=== PATIENT | male | born 1950 | race Caucasian/White ===

== ENCOUNTER 2018-08-06 14:31 | Emergency (ER) | payer OTHER ==
--- OUTSIDE RECORDS SUMMARY | 2018-08-06 14:33 | XMS REPORT ---
:1950 Author Organization eClinicalWorks Care Team Providers Name Role Phone Hardik Teresa Provider Role Unavailable Allergies, Adverse Reactions, Alerts Substance Reaction Event Type N.K.D.A. Info Not Available Non Drug Allergy Problems Problem Type Condition Code Onset Dates Condition Status Problem Acute right hip pain M25.551 Active Problem Right sided sciatica M54.31 Active Assessment Acute right hip pain M25.551 Active Assessment Right sided sciatica M54.31 Active Medications Medication Code Code Instructions Start End Status Dosage System Date Date MetFORMIN HCl ER [facility] 84491953575 500 MG Oral Active TAKE 2 TABLETS BY MOUTH TWICE A DAY PredniSONE [facility] 89642279796 20 MG Oral Active TAKE 1 TABLET BY MOUTH EVERY DAY Aspir-81 [facility] 77259858235 81 MG Orally Active 1 tablet Once a day MethylPREDNISolone [facility] 36898180934 4 MG Orally Jan Active as directed 2017 Victoza [facility] 68262506502 18 MG/3ML Active INJECT UNDER Subcutaneous THE SKIN 1.8MG EVERY DAY Iihuympse-Aoijvhxm-W [facility] 90327444778 30-2-10 MG/5ML Active TAKE 2 M Oral TEASPOONSFUL BY MOUTH THREE TIMES A DAY NEEDED FOR 10 DAYS Fluzone High-Dose [facility] 98311958312 0.5 ML Active TO BE Intramuscular ADMINISTERED BY PHARMACIST FOR IMMUNIZATION NovoFine Plus [facility] 02074303399 32G X 4 MM Active USE ONCE DAILY Ketoconazole [facility] 67362646490 2 % External Active USE SHAMPOO 2-3X WEEKLY NEEDED, LEAVE LATHER IN PLACE FOR 5 MINUTES PRIOR TO RINSING. Betamethasone [facility] 29335943387 0.05 % Active APPLY TO Dipropionate External AFFECTED AREA TWICE A DAY NEEDED FOR UP TO ONE WEEK. TAKE ONE WEEK BREAK BETWEEN TREATME Montelukast Sodium ND 62531327159 10 MG Oral Active TAKE 1 TABLET BY MOUTH EVERY DAY Losartan Potassium ND 87334471712 100 MG Oral Active TAKE 1 TABLET BY MOUTH EVERY DAY (NEEDS BLOOD WORK AND OFFICE VISIT BEFORE NEXT REFILL) Atorvastatin Calcium [facility] 47717340260 10 MG Oral Active TAKE 1 TABLET BY MOUTH EVERY DAY (NEED BLOOD WORK AND OFFICE VISIT BEFORE NEXT REFILL) Neida [facility] 39932253106 0.01 % Active PUT 1 DROP Ophthalmic INTO BOTH EYES AT BEDTIME Results No Known Results Summary Purpose eClinicalWorks Submission
--- NOTE | 2018-08-06 15:19 | EDPHYS ---
Physician Documentation [facility] Name: Wesley Medina Age: 68 yrs Sex: Male : 1950 Arrival Date: 08/06/2018 Time: 14:33 Bed 11 Private MD: Seth Salomon ED Physician Ramiro Zamarripa HPI: 08/06 15:24 This 68 yrs old Male presents to ER via Ambulatory with complaints of Back snw Pain. 15:24 The patient presents with pain that is acute. The symptoms are located in the low back. snw Onset: The symptoms/episode began/occurred 1 week(s) ago, and became persistent. The pain radiates to the lateral aspect of right thigh, lateral aspect of right knee and right knee. Associated signs and symptoms: The patient has no apparent associated signs or symptoms. The problem was sustained when bending over, when lifting from twisting. Severity of symptoms: At their worst the symptoms were moderate. The patient has experienced a previous episode. The patient has been recently seen by a physician: the patient's primary care provider, with different complaint(s). Historical: - Allergies: 14:35 No Known Allergies; sg - PMHx: 14:35 Diabetes - NIDDM; Hypertension; sg - PSHx: 14:35 Cholecystectomy; Appendectomy; scalp sx; Tonsillectomy; sg - Immunization history:: Adult Immunizations up to date. - Social history:: Smoking status: Patient/guardian denies using tobacco. - Ebola Screening: : Patient negative for fever greater than or equal to 101.5 degrees Fahrenheit, and additional compatible Ebola Virus Disease symptoms Patient denies exposure to infectious person Patient denies travel to an Ebola-affected area in the 21 days before illness onset No symptoms or risks identified at this time. ROS: 15:23 Constitutional: Negative for fever, chills, and weight loss, Eyes: Negative for injury, snw pain, redness, and discharge, ENT: Negative for injury, pain, and discharge, Neck: Negative for injury, pain, and swelling, Cardiovascular: Negative for chest pain, palpitations, and edema, Respiratory: Negative for shortness of breath, cough, wheezing, and pleuritic chest pain, Abdomen/GI: Negative for abdominal pain, nausea, vomiting, diarrhea, and constipation, : Negative for injury, bleeding, discharge, and swelling, MS/Extremity: Negative for injury and deformity, Skin: Negative for injury, rash, and discoloration, Neuro: Negative for headache, weakness, numbness, tingling, and seizure. 15:23 Back: Positive for pain with movement, radiated pain, of the low back area, radiates down right hip to knee. Exam: 15:22 Constitutional: This is a well developed, well nourished patient who is awake, alert, snw and in no acute distress. Head/Face: Normocephalic, atraumatic. Eyes: Pupils equal round and reactive to light, extra-ocular motions intact. Lids and lashes normal. Conjunctiva and sclera are non-icteric and not injected. Cornea within normal limits. Periorbital areas with no swelling, redness, or edema. ENT: Nares patent. No nasal discharge, no septal abnormalities noted. Tympanic membranes are normal and external auditory canals are clear. Oropharynx with no redness, swelling, or masses, exudates, or evidence of obstruction, uvula midline. Mucous membranes moist. Neck: Trachea midline, no thyromegaly or masses palpated, and no cervical lymphadenopathy. Supple, full range of motion without nuchal rigidity, or vertebral point tenderness. No Meningismus. Chest/axilla: Normal chest wall appearance and motion. Nontender with no deformity. No lesions are appreciated. Cardiovascular: Regular rate and rhythm with a normal S1 and S2. No gallops, murmurs, or rubs. Normal PMI, no JVD. No pulse deficits. Respiratory: Lungs have equal breath sounds bilaterally, clear to auscultation and percussion. No rales, rhonchi or wheezes noted. No increased work of breathing, no retractions or nasal flaring. Abdomen/GI: Soft, non-tender, with normal bowel sounds. No distension or tympany. No guarding or rebound. No evidence of tenderness throughout. Back: No spinal tenderness. No costovertebral tenderness. Painful flexion, rotation on range of motion. Skin: Warm, dry with normal turgor. Normal color with no rashes, no lesions, and no evidence of cellulitis. MS/ Extremity: Pulses equal, no cyanosis. Neurovascular intact. Full, normal range of motion. Neuro: Awake and alert, GCS 15, oriented to person, place, time, and situation. Cranial nerves II-XII grossly intact. Motor strength 5/5 in all extremities. Sensory grossly intact. Cerebellar exam normal. Normal gait. Vital Signs: 14:39 Weight 120.66 kg; Height 6 ft. 1 in. (185.42 cm); Pain 7/10; sg 14:40 BP 134 / 74; Pulse 85; Resp 17; Temp 98.1; Pulse Ox 98% ; sg 14:39 Body Mass Index 35.09 (120.66 kg, 185.42 cm) sg MDM: 15:06 Patient medically screened. snw 15:22 Data reviewed: vital signs, nurses notes. Data interpreted: Pulse oximetry: on room air snw is 98 %. Interpretation: normal. Counseling: I had a detailed discussion with the patient and/or guardian regarding: the historical points, exam findings, and any diagnostic results supporting the discharge/admit diagnosis, the need for outpatient follow up, for definitive care, to return to the emergency department if symptoms worsen or persist or if there are any questions or concerns that arise at home. Special discussion: I have referred the patient to see his PCP for further evaluation of high blood pressure. Based on the history and exam findings, there is no indication for further emergent testing or inpatient evaluation. I discussed with the patient/guardian the need to see the primary care provider for further evaluation of the symptoms. Administered Medications: 15:28 Drug: fentaNYL (PF) 50 mcg Route: IM; Site: right deltoid; hb 15:28 Drug: predniSONE 20 mg Route: PO; hb 15:28 Drug: Valium 2 mg Route: PO; hb Disposition: 08/07 07:50 Co-signature as Attending Physician, Ramiro Zamarripa MD I agree with the assessment and oscar plan of care. Disposition: 08/06/18 15:19 Discharged to Home. Impression: Low back pain, Muscle spasm of back. - Condition is Stable. - Discharge Instructions: Back Pain, Adult, Muscle Cramps and Spasms, Musculoskeletal Pain, Cryotherapy, Rehydration, Adult, Heat Therapy. - Prescriptions for Tylenol- Codeine #3 300-30 mg Oral Tablet - take 2 tablets by ORAL route every 6 hours As needed; 16 tablet. Prednisone 20 mg Oral Tablet - take 1 tablet by ORAL route every 12 hours for 5 days; 10 tablet. orphenadrine citrate 100 mg Oral Tablet Sustained Release - take 1 tablet by ORAL route 2 times per day As needed; 20 tablet. - Work release form, Medication Reconciliation Form, Thank You Letter, Antibiotic Education, Prescription Opioid Use form. - Follow up: Seth Salomon MD; When: 2 - 3 days; Reason: Recheck today's complaints, Continuance of care, Re-evaluation by your physician. Follow up: Emergency Department; When: As needed; Reason: Worsening of condition. Signatures: Bear Mccarthy RN Ramiro Nance MD MD cha Therrien, Shelly, DIRECTOR OF ENVIRONMENTAL SERVICES-C DIRECTOR OF ENVIRONMENTAL SERVICES-Csnw [place] Colmenares RN RN la1 Rozina Diaz RN RN Corrections: (The following items were deleted from the chart) 08/06 15:58 15:19 08/06/2018 15:19 Discharged to Home. Impression: Low back pain; Muscle spasm of la1 back. Condition is Stable. Forms are Medication Reconciliation Form, Thank You Letter, Antibiotic Education, Prescription Opioid Use. Follow up: Seth Salomon; When: 2 - 3 days; Reason: Recheck today's complaints, Continuance of care, Re-evaluation by your physician. Follow up: Emergency Department; When: As needed; Reason: Worsening of condition. snw
--- NOTE | 2018-08-06 15:19 | ER ---
Nurse's Notes [facility] Name: Wesley Medina Age: 68 yrs Sex: Male : 1950 Arrival Date: 08/06/2018 Time: 14:33 Bed 11 Private MD: Seth Salomon Diagnosis: Low back pain;Muscle spasm of back Presentation: 08/06 14:41 Presenting complaint: Patient states: Injury to back while trying to start the pressure sg washer, bed rest and light duty for several days, back pain got better, and then went to lean forward to get something and pulled back, reports low back pain and leg pain at this time, denies trauma or injury. Transition of care: patient was not received from another setting of care. Onset of symptoms was August 06, 2018. Risk Assessment: Do you want to hurt yourself or someone else? Patient reports no desire to harm self or others. Initial Sepsis Screen: Does the patient meet any 2 criteria? No. Patient's initial sepsis screen is negative. Does the patient have a suspected source of infection? No. Patient's initial sepsis screen is negative. Care prior to arrival: None. 14:41 Method Of Arrival: Ambulatory sg 14:41 Acuity: MILLA 4 sg Historical: - Allergies: 14:35 No Known Allergies; sg - PMHx: 14:35 Diabetes - NIDDM; Hypertension; sg - PSHx: 14:35 Cholecystectomy; Appendectomy; scalp sx; Tonsillectomy; sg - Immunization history:: Adult Immunizations up to date. - Social history:: Smoking status: Patient/guardian denies using tobacco. - Ebola Screening: : Patient negative for fever greater than or equal to 101.5 degrees Fahrenheit, and additional compatible Ebola Virus Disease symptoms Patient denies exposure to infectious person Patient denies travel to an Ebola-affected area in the 21 days before illness onset No symptoms or risks identified at this time. Screenin:28 Abuse screen: Denies threats or abuse. Denies injuries from another. Nutritional hb screening: No deficits noted. Tuberculosis screening: No symptoms or risk factors identified. Fall Risk None identified. Assessment: 15:28 General: Appears in no apparent distress. Behavior is calm, cooperative. Pain: Pain hb currently is 7 out of 10 on a pain scale. Neuro: Level of Consciousness is awake, alert, obeys commands, Oriented to person, place, time, situation. Cardiovascular: Capillary refill < 3 seconds Patient's skin is warm and dry. Respiratory: Airway is patent Respiratory effort is even, unlabored, Respiratory pattern is regular, symmetrical. GI: No signs and/or symptoms were reported involving the gastrointestinal system. : No signs and/or symptoms were reported regarding the genitourinary system. EENT: No signs and/or symptoms were reported regarding the EENT system. Derm: Skin is intact, is healthy with good turgor. Musculoskeletal: Reports low back pain. Vital Signs: 14:39 Weight 120.66 kg; Height 6 ft. 1 in. (185.42 cm); Pain 7/10; sg 14:40 BP 134 / 74; Pulse 85; Resp 17; Temp 98.1; Pulse Ox 98% ; sg 14:39 Body Mass Index 35.09 (120.66 kg, 185.42 cm) sg ED Course: 14:33 Patient arrived in ED. ds1 14:33 Seth Salomon MD is Private Physician. ds1 14:35 Arm band placed on. sg 14:43 Triage completed. sg 15:06 Lu Carbone FNP-C [facility]. snw 15:06 Ramiro Zamarripa MD is Attending Physician. snw 15:15 Patient has correct armband on for positive identification. Call light in reach. hb 15:18 Seth Salomon MD is Referral Physician. snw 15:27 Dallas Colmenares RN is Primary Nurse. la1 15:29 No provider procedures requiring assistance completed. Patient did not have IV access hb during this emergency room visit. Administered Medications: 15:28 Drug: fentaNYL (PF) 50 mcg Route: IM; Site: right deltoid; hb 15:28 Drug: predniSONE 20 mg Route: PO; hb 15:28 Drug: Valium 2 mg Route: PO; hb Outcome: 15:19 Discharge ordered by . snw 15:58 Patient left the ED. la1 Signatures: Bear Mccarthy RN RN Lu Carbone FNP-C BUS DISPATCHER INTERSTATE-Csnw OmalleyMeli burgess ds1 Dallas Colmenares RN RN la1 Rozina Diaz RN RN hb
[2018-08-06] MEDS ORDERED: DIAZEPAM 2 MG TABLET ONE (15:34)
[2018-08-06] MEDS ORDERED: predniSONE 20 MG TAB ONE (15:34)
[2018-08-06] MEDS ORDERED: FENTANYL CITR 100 MCG/2 ML ONE (15:34)
[2018-08-06 16:12] VITALS: BP 134/74; TEMP 98.1; O2SAT 98
== END 2018-08-06 15:58 | disposition home or self-care (01) ==
LOC: ER 14:31
DX: M62.830 Muscle spasm of back (principal); E11.9 Type 2 diabetes mellitus without complications; I10 Essential (primary) hypertension
CPT/HCPCS: 96372; 99282; J3010; J7512

== ENCOUNTER 2019-07-06 21:40 | Inpatient (IN) | payer OTHER ==
--- OUTSIDE RECORDS SUMMARY | 2019-07-06 21:43 | XMS REPORT ---
[...] Dosage System Date Date MetFORMIN HCl ER [facility] 86207402983 500 MG Oral Active TAKE 2 TABLETS BY MOUTH TWICE A DAY PredniSONE [facility] 10931212220 20 MG Oral Active TAKE 1 TABLET BY MOUTH EVERY DAY Aspir-81 [facility] 93872301559 81 MG Orally Active 1 tablet Once a day MethylPREDNISolone [facility] 28643969107 4 MG Orally Jan Active as directed 2017 Victoza [facility] [place] 18767398508 18 MG/3ML Active INJECT UNDER Subcutaneous THE SKIN 1.8MG EVERY DAY Mmtpicwuz-Snmfjvlk-D [facility] 33745044642 30-2-10 MG/5ML Active TAKE 2 M Oral TEASPOONSFUL BY MOUTH THREE TIMES A DAY NEEDED FOR 10 DAYS Fluzone High-Dose [facility] [place] 96547118396 0.5 ML Active TO BE Intramuscular ADMINISTERED BY PHARMACIST FOR IMMUNIZATION NovoFine Plus [facility] 37542051599 32G X 4 MM Active USE ONCE DAILY Ketoconazole [facility] [place] 64035036248 2 % External Active USE SHAMPOO 2-3X WEEKLY NEEDED, LEAVE LATHER IN PLACE FOR 5 MINUTES PRIOR TO RINSING. Betamethasone [facility] 23199415708 0.05 % Active APPLY TO Dipropionate External AFFECTED AREA TWICE A DAY NEEDED FOR UP TO ONE WEEK. TAKE ONE WEEK BREAK BETWEEN TREATME Montelukast Sodium ND 86021195608 10 MG Oral Active TAKE 1 TABLET BY MOUTH EVERY DAY Losartan Potassium ND 75769896801 100 MG Oral Active TAKE 1 TABLET BY MOUTH EVERY DAY (NEEDS BLOOD WORK AND OFFICE VISIT BEFORE NEXT REFILL) Atorvastatin Calcium [facility] 64673114162 10 MG Oral Active TAKE 1 TABLET BY MOUTH EVERY DAY (NEED BLOOD WORK AND OFFICE VISIT BEFORE NEXT REFILL) Neida [facility] 77431504356 0.01 % Active PUT 1 DROP Ophthalmic INTO BOTH EYES AT BEDTIME Results No Known Results Summary Purpose eClinicalWorks Submission
[2019-07-06 22:45] LABS: Absolute Lymphocytes (CBC) 1.6 K/uL (0.7-4.9); Basophils % 0.4 % (0-1.3); Hematocrit 50.5 % (39.6-49.0); Lymphocytes % 7.8 % (15.3-44.8); MPV 8.8 fL (7.6-11.3); RBC Red Blood Cell Count 5.65 M/uL (4.33-5.43)
[2019-07-06] MEDS ORDERED: NA CHLORIDE 0.9% 1,000 ML ONE (22:46)
[2019-07-06 22:49] LABS: Protime INR 1.08
[2019-07-06 22:59] LABS: ALT/SGPT 47 U/L (12-78); AST/SGOT 23 U/L (15-37); Albumin 3.9 g/dL (3.4-5.0); Alkaline Phosphatase 72 U/L (45-117); Amylase Level 48 U/L (25-115); BUN Blood Urea Nitrogen 14 mg/dL (7-18); Bicarbonate 24 mmol/L (21-32); Bilirubin Direct 0.1 mg/dL (0-0.2); Bilirubin Total 0.6 mg/dL (0.2-1.0); CKMB Creatine Kinase MB < 1.0 ng/mL (0.3-3.6); Creatine Phosphokinase 73 U/L (39-308); Glucose Level 140 mg/dL (74-106); Lipase 131 U/L (73-393); Potassium 3.7 mmol/L (3.5-5.1); Protein, Total 7.7 g/dL (6.4-8.2); Sodium Level 138 mmol/L (136-145); Troponin (Emerg Dept Use Only) < 0.02 ng/mL (0.0-0.045)
[2019-07-06 23:17] LABS: Blood Morphology Comment NOT SEEN (NOT SEEN); Platelet Estimate ADEQ
[2019-07-06] MEDS ORDERED: IBUPROFEN 400 MG TAB ONE (23:35)
[2019-07-06] MEDS ORDERED: PIPER/TAZO/NS 3.375gm 3.375 GM/100 ML BAG ONE (23:35)
[2019-07-06 23:55] LABS: Urine Bacteria <20 /HPF (NONE SEEN); Urine Culture Reflex Order NOT NEEDED; Urine Mucus 1+ /HPF (NONE SEEN)
[2019-07-07 00:43] LABS: Urine Blood 2+ (NEG); Urine Glucose 3+ (NEG); Urine Protein NEGATIVE (NEG); Urine Specific Gravity 1.015 (1.005-1.030)
--- NOTE | 2019-07-07 01:40 | EDPHYS ---
Physician Documentation [facility] Name: Wesley Medina Age: 69 yrs Sex: Male : 1950 Arrival Date: 07/06/2019 Time: 21:42 Bed 8 Private MD: ED Physician Ramiro Zamarripa HPI: 07/06 23:19 This 69 yrs old Male presents to ER via Ambulatory with complaints of Flu snw Symptoms. 23:19 Onset: The symptoms/episode began/occurred suddenly, today. Associated signs and snw symptoms: Pertinent positives: dysuria, fever, sore throat, chills. Modifying factors: The patient symptoms are alleviated by nothing. The patient has not experienced similar symptoms in the past. It is unknown whether or not the patient has recently seen a physician, PCP is Dr. Salomon. Historical: - Allergies: 22:27 No Known Allergies; lp1 - Home Meds: 22:27 losartan 100 mg oral tab 1 tab once daily [Active]; metformin 1,000 mg Oral TG24 2 tabs lp1 once daily [Active]; atorvastatin 10 mg oral tab 1 tab once daily [Active]; Victoza 3-Jose 0.6 mg/0.1 mL (18 mg/3 mL) subcutaneous pnij [Active]; novofine [Active]; Lumigan 0.01 % ophthalmic drop daily [Active]; Jardiance 10 mg oral tab 1 tab once daily [Active]; aspirin 81 mg oral TbEC 1 tab once daily [Active]; - PMHx: 22:27 Diabetes - NIDDM; Hypertension; Hyperlipidemia; lp1 - PSHx: 22:27 Tonsillectomy; Cholecystectomy; R meniscus repair; Appendectomy; lp1 - Immunization history:: Adult Immunizations up to date. - Coronavirus screen:: The patient has NOT traveled to [place], [place], or [place] in the past 14 days. - Social history:: Smoking status: Patient denies any tobacco usage or history of. - Ebola Screening: : No symptoms or risks identified at this time. ROS: 23:18 Eyes: Negative for injury, pain, redness, and discharge. snw 23:18 Neck: Negative for injury, pain, and swelling, Cardiovascular: Negative for chest pain, palpitations, and edema, Respiratory: Negative for shortness of breath, cough, wheezing, and pleuritic chest pain, Abdomen/GI: Negative for abdominal pain, nausea, vomiting, diarrhea, and constipation, Back: Negative for injury and pain. 23:18 MS/Extremity: Negative for injury and deformity, Skin: Negative for injury, rash, and discoloration, Neuro: Negative for headache, weakness, numbness, tingling, and seizure, Psych: Negative for depression, anxiety, suicide ideation, homicidal ideation, and hallucinations. 23:18 Constitutional: Positive for body aches, chills, fatigue, fever, malaise. 23:18 ENT: Positive for sore throat. 23:18 : Positive for urinary frequency, burning with urination. Exam: 23:17 Head/Face: Normocephalic, atraumatic. Eyes: Pupils equal round and reactive to light, snw extra-ocular motions intact. Lids and lashes normal. Conjunctiva and sclera are non-icteric and not injected. Cornea within normal limits. Periorbital areas with no swelling, redness, or edema. Neck: Trachea midline, no thyromegaly or masses palpated, and no cervical lymphadenopathy. Supple, full range of motion without nuchal rigidity, or vertebral point tenderness. No Meningismus. Chest/axilla: Normal chest wall appearance and motion. Nontender with no deformity. No lesions are appreciated. 23:17 Respiratory: Lungs have equal breath sounds bilaterally, clear to auscultation and percussion. No rales, rhonchi or wheezes noted. No increased work of breathing, no retractions or nasal flaring. Abdomen/GI: Soft, non-tender, with normal bowel sounds. No distension or tympany. No guarding or rebound. No evidence of tenderness throughout. Back: No spinal tenderness. No costovertebral tenderness. Full range of motion. Skin: Warm, dry with normal turgor. Normal color with no rashes, no lesions, and no evidence of cellulitis. MS/ Extremity: Pulses equal, no cyanosis. Neurovascular intact. Full, normal range of motion. Neuro: Awake and alert, GCS 15, oriented to person, place, time, and situation. Cranial nerves II-XII grossly intact. Motor strength 5/5 in all extremities. Sensory grossly intact. Cerebellar exam normal. Normal gait. Psych: Awake, alert, with orientation to person, place and time. Behavior, mood, and affect are within normal limits. 23:17 Constitutional: The patient appears alert, awake, febrile. 23:17 ENT: TM's: are normal, Nose: is normal, Mouth: is normal, Posterior pharynx: erythema, that is moderate, Voice: is normal. 23:17 Cardiovascular: Rate: tachycardic, Rhythm: regular, Pulses: no pulse deficits are appreciated, Heart sounds: normal. Vital Signs: 22:08 BP 161 / 69; Pulse 127; Resp 20; Temp 102.1(O); Pulse Ox 93% on R/A; Weight 115.67 kg; lp1 Height 6 ft. 1 in. (185.42 cm); 23:46 BP 117 / 70; Pulse 117; Resp 25 S; Temp 99.8(O); Pulse Ox 95% on R/A; ar5 07/07 00:00 BP 135 / 70; Pulse 112; Resp 25; Temp 99.8(O); Pulse Ox 94% on 2 lpm NC; Pain 0/10; vc 01:00 BP 131 / 69; Pulse 116; Resp 23; Pulse Ox 93% on 2 lpm NC; vc 02:00 BP 120 / 70; Pulse 109; Resp 22; Pulse Ox 92% on R/A; vc 03:00 BP 120 / 62; Pulse 103; Resp 30; Pulse Ox 94% on 2 lpm NC; vc 04:00 BP 125 / ???; Pulse 95; Resp 22; Temp 98.4(O); Pulse Ox 96% on 2 lpm NC; vc 07/06 22:08 Body Mass Index 33.64 (115.67 kg, 185.42 cm) lp1 MDM: 07/06 22:22 Patient medically screened. oscar 07/07 01:39 Data reviewed: vital signs, nurses notes. Data interpreted: Pulse oximetry: on room air snw is 95 %. Interpretation: acceptable. Counseling: I had a detailed discussion with the patient and/or guardian regarding: the historical points, exam findings, and any diagnostic results supporting the discharge/admit diagnosis, lab results, radiology results, the need for further work-up and treatment in the hospital. Physician consultation: Margaret Barahona MD was called at 00:40, was contacted at 00:40, regarding admission, to the telemetry unit. would like further tests performed, CT scan. 07/06 22:08 Order name: Amylase, Serum 07/06 22:08 Order name: Basic Metabolic Panel [facility] 07/06 22:08 Order name: Blood Culture Adult (2) [facility] 07/06 22:08 Order name: CBC with Diff; Complete Time: 23:20 [facility] 07/06 22:08 Order name: Ckmb; Complete Time: 23:04 [facility] 07/06 22:08 Order name: CPK; Complete Time: 23:04 [facility] 07/06 22:08 Order name: Lactate; Complete Time: 23:04 [facility] 07/06 22:08 Order name: LFT's; Complete Time: 23:04 [facility] 07/06 22:08 Order name: Lipase; Complete Time: 23:04 [facility] 07/06 22:08 Order name: Procalcitonin; Complete Time: 23:14 [facility] 07/06 22:08 Order name: Protime (+inr); Complete Time: 22:51 [facility] 07/06 22:08 Order name: Ptt, Activated; Complete Time: 22:51 [facility] 07/06 22:08 Order name: Troponin (emerg Dept Use Only); Complete Time: 23:04 [facility] 07/06 22:08 Order name: Urine Microscopic Only; Complete Time: 23:58 [facility] 07/06 22:08 Order name: Chest Single View XRAY; Complete Time: 15:22 [facility] 07/06 22:08 Order name: Amylase Level; Complete Time: 23:04 [facility] 07/06 22:08 Order name: Basic Metabolic Panel; Complete Time: 23:04 [facility] 07/06 22:08 Order name: Blood Culture [facility] 07/06 22:09 Order name: Flu; Complete Time: 22:43 [facility] 07/06 23:05 Order name: Strep; Complete Time: 23:33 [facility] 07/[facility] 23:17 Order name[facility] Urine [facility] 07/[facility] 23:18 Order name: Manual Differential; Complete Time: 23:20 [facility] 07/06 23:34 Order name: Throat Culture [facility] 07/07 00:27 Order name: Urine Dipstick--Ancillary (enter results); Complete Time: 00:45 sp 07/07 00:35 Order name: CT Stone Protocol [facility] 07/07 01:52 Order name: Add On-Lab [facility] 07/07 02:37 Order name: Lactate Sepsis 2 HR Follow-up; Complete Time: 15:22 EDMS 07/07 02:44 Order name: [place] Screen; Complete Time: 15:22 EDMS 07/06 22:08 Order name: Cardiac monitoring; Complete Time: 22:49 lp1 07/06 22:08 Order name: EKG - Nurse/Tech; Complete Time: 23:08 lp1 07/06 22:08 Order name: IV Saline Lock - Large Bore; Complete Time: 22:33 lp1 07/06 22:08 Order name: Labs collected and sent; Complete Time: 22:33 lp1 07/06 22:08 Order name: O2 Per Protocol; Complete Time: 22:33 lp1 07/06 22:08 Order name: O2 Sat Monitoring; Complete Time: 22:33 lp1 07/06 22:08 Order name: Urine Dipstick-Ancillary (obtain specimen); Complete Time: 23:28 lp1 Administered Medications: 07/06 22:50 Drug: NS 0.9% 1000 ml Route: IV; Rate: 1 bolus; Site: right forearm; vc 23:50 Follow up: IV Status: Completed infusion vc 23:51 Drug: Zosyn 3.375 grams Route: IVPB; Infused Over: 60 mins; Site: right forearm; vc 07/07 00:51 Follow up: IV Status: Completed infusion vc 07/06 23:51 Drug: Motrin 400 mg Route: PO; vc 07/07 00:00 Follow up: Response: No adverse reaction; Temperature is decreased vc 02:00 Drug: NS 0.9% 1000 ml Route: IV; Rate: 1 bolus; Site: left forearm; vc 02:16 Follow up: Response: No adverse reaction; IV Status: Infusion continued upon admission vc Disposition: 07/07/19 01:39 Hospitalization ordered by Margaret Barahona for Inpatient Admission. Preliminary diagnosis is Sepsis, unspecified organism. - Bed requested for Telemetry/MedSurg (Inpatient). - Status is Inpatient Admission. vc - Condition is Stable. - Problem is new. - Symptoms are unchanged. UTI on Admission? No Addendum: 07/08/2019 21:08 Co-signature as Attending Physician, Ramiro Zamarripa MD I agree with the assessment and c erwin plan of care. Signatures: Dispatcher [employer] Ramiro Patrick MD MD cha Therrien, Shelly, BIZTALK DEVELOPER-C BIZTALK DEVELOPER-Csnw Essence Valle, RN RN 1 Sera Saravia, WILLIE RN Georgiana Gaines RN RN vc Corrections: (The following items were deleted from the chart) 07/07 00:10 07/06 22:08 Accucheck ordered. lp1 vc 07/07 01:53 01:39 Hospitalization Ordered by Margaret Barahona MD for Inpatient Admission. Preliminary cg diagnosis is Sepsis, unspecified organism. Bed requested for Telemetry/MedSurg (Inpatient). Status is Inpatient Admission. Condition is Stable. Problem is new. Symptoms are unchanged. UTI on Admission? No. snw 04:35 01:53 07/07/2019 01:39 Hospitalization Ordered by Margaret Barahona MD for Inpatient vc Admission. Preliminary diagnosis is Sepsis, unspecified organism. Bed requested for Telemetry/MedSurg (Inpatient). Status is Inpatient Admission. Condition is Stable. Problem is new. Symptoms are unchanged. UTI on Admission? No. cg
--- NOTE | 2019-07-07 01:40 | ER ---
Nurse's Notes [facility] Name: Wesley Medina Age: 69 yrs Sex: Male : 1950 Arrival Date: 07/06/2019 Time: 21:42 Bed 8 Private MD: Diagnosis: Sepsis, unspecified organism Presentation: 07/06 22:10 Presenting complaint: Patient states: States all of a sudden this evening began to have lp1 chills, checked temp at 1800, temp of 101; States did not take any meds for fever, "I didn't want to mask any symptoms"; States shortness of breath. Transition of care: patient was not received from another setting of care. Onset of symptoms was July 06, 2019. Risk Assessment: Do you want to hurt yourself or someone else? Patient reports no desire to harm self or others. Initial Sepsis Screen: Does the patient meet any 2 criteria? Temp <36.0*C (96.8*F)) or > 38.3*C (100.9*F). HR > 90 bpm. Yes Does the patient have a suspected source of infection? Yes: Productive cough/pneumonia. Care prior to arrival: None. 22:10 Method Of Arrival: Ambulatory lp1 22:10 Acuity: MILLA 2 lp1 Historical: - Allergies: 22:27 No Known Allergies; lp1 - Home Meds: 22:27 losartan 100 mg oral tab 1 tab once daily [Active]; metformin 1,000 mg Oral TG24 2 tabs lp1 once daily [Active]; atorvastatin 10 mg oral tab 1 tab once daily [Active]; Victoza 3-Jose 0.6 mg/0.1 mL (18 mg/3 mL) subcutaneous pnij [Active]; novofine [Active]; Lumigan 0.01 % ophthalmic drop daily [Active]; Jardiance 10 mg oral tab 1 tab once daily [Active]; aspirin 81 mg oral TbEC 1 tab once daily [Active]; - PMHx: 22:27 Diabetes - NIDDM; Hypertension; Hyperlipidemia; lp1 - PSHx: 22:27 Tonsillectomy; Cholecystectomy; R meniscus repair; Appendectomy; lp1 - Immunization history:: Adult Immunizations up to date. - Coronavirus screen:: The patient has NOT traveled to [place], [place], or [place] in the past 14 days. - Social history:: Smoking status: Patient denies any tobacco usage or history of. - Ebola Screening: : No symptoms or risks identified at this time. Screenin:27 Abuse screen: Denies threats or abuse. Denies injuries from another. Nutritional lp1 screening: No deficits noted. Tuberculosis screening: No symptoms or risk factors identified. Fall Risk None identified. Assessment: 22:28 General: Appears ill, Behavior is appropriate for age, Reports chills for fever for lp1 feeling ill for 0-12 hours. Pain: Denies pain. Neuro: Level of Consciousness is awake, alert, obeys commands, Oriented to person, place, time, situation, Gait is steady, Speech is normal. Cardiovascular: Capillary refill < 3 seconds in bilateral fingers Patient's skin is warm and dry. Respiratory: Reports shortness of breath Airway is patent Respiratory effort is even, unlabored, Breath sounds are clear bilaterally. GI: Abdomen is non-distended. : No signs and/or symptoms were reported regarding the genitourinary system. EENT: Reports pain when swallowing. Derm: Skin is intact, Skin is dry, Skin is flushed. Musculoskeletal: No deficits noted. 23:30 Reassessment: Patient is alert, oriented x 3, equal unlabored respirations, skin vc warm/dry/pink. Patient states feeling better. Patient states symptoms have improved. 07/07 00:30 General: Appears in no apparent distress. comfortable, Behavior is calm, cooperative. vc 00:30 Reassessment: Patient and/or family updated on plan of care and expected duration. Pain vc level reassessed. 01:30 Reassessment: Patient is resting with eyes closed. at bedside. Patient states vc feeling better. Patient states symptoms have improved. 02:18 Reassessment: Attempted to call report to forth floor, will try again. vc 03:00 Reassessment: Patient laying on left side with eyes closed, resting comfortably. vc at bedside. 03:50 Reassessment: Patient and/or family updated on plan of care and expected duration. Pain vc level reassessed. Patient ambulating to bathroom. Patient denies pain at this time. 04:07 Reassessment: Report given to WILLIE Rodriguez. vc Vital Signs: 07/06 22:08 BP 161 / 69; Pulse 127; Resp 20; Temp 102.1(O); Pulse Ox 93% on R/A; Weight 115.67 kg; lp1 Height 6 ft. 1 in. (185.42 cm); 23:46 BP 117 / 70; Pulse 117; Resp 25 S; Temp 99.8(O); Pulse Ox 95% on R/A; ar5 07/07 00:00 BP 135 / 70; Pulse 112; Resp 25; Temp 99.8(O); Pulse Ox 94% on 2 lpm NC; Pain 0/10; vc 01:00 BP 131 / 69; Pulse 116; Resp 23; Pulse Ox 93% on 2 lpm NC; vc 02:00 BP 120 / 70; Pulse 109; Resp 22; Pulse Ox 92% on R/A; vc 03:00 BP 120 / 62; Pulse 103; Resp 30; Pulse Ox 94% on 2 lpm NC; vc 04:00 BP 125 / ???; Pulse 95; Resp 22; Temp 98.4(O); Pulse Ox 96% on 2 lpm NC; vc 07/06 22:08 Body Mass Index 33.64 (115.67 kg, 185.42 cm) lp1 ED Course: 07/06 21:42 Patient arrived in ED. jg7 22:09 Georgiana Gaines, RN is Primary Nurse. vc 22:11 Triage completed. lp1 22:12 Arm band placed on. lp1 22:14 [facility]C [facility] snw 22:16 Ramiro Zamarripa MD is Attending Physician. snw 22:25 Inserted saline lock: 20 gauge in right forearm, using aseptic technique. Blood vc collected. 22:30 Patient has correct armband on for positive identification. vc 22:32 Flu Sent. vc 22:32 Blood Culture Sent. vc 22:32 Basic Metabolic Panel Sent. vc 22:32 Amylase Level Sent. vc 22:46 Chest Single View XRAY In Process Unspecified. EDMS 07/07 01:25 CT Stone Protocol In Process Unspecified. EDMS 01:39 Margaret Barahona MD is Hospitalizing Provider. snw 03:59 No provider procedures requiring assistance completed. vc 04:00 Patient admitted, IV remains in place. vc Administered Medications: 07/06 22:50 Drug: NS 0.9% 1000 ml Route: IV; Rate: 1 bolus; Site: right forearm; vc 23:50 Follow up: IV Status: Completed infusion vc 23:51 Drug: Zosyn 3.375 grams Route: IVPB; Infused Over: 60 mins; Site: right forearm; vc 07/07 00:51 Follow up: IV Status: Completed infusion vc 07/06 23:51 Drug: Motrin 400 mg Route: PO; vc 07/07 00:00 Follow up: Response: No adverse reaction; Temperature is decreased vc 02:00 Drug: NS 0.9% 1000 ml Route: IV; Rate: 1 bolus; Site: left forearm; vc 02:16 Follow up: Response: No adverse reaction; IV Status: Infusion continued upon admission vc Outcome: 01:39 Decision to Hospitalize by Provider. snw 03:59 Condition: good vc 03:59 Instructed on the need for admit. 04:08 Admitted to Tele accompanied by nurse, family with patient, room 425. vc 04:25 Patient left the ED. vc Signatures: Dispatcher [employer] EDMS Lu Carbone, CAR SHAGGER-C CAR SHAGGER-Csnw Essence Valle, RN RN lp1 Be Chambers RN RN jDarleen Pisano ar5 Lilliana Garg7 Georgiana Gaines RN RN vc Corrections: (The following items were deleted from the chart) 00:22 07/06 23:46 BP 117 / 70; Pulse 117bpm; Resp 25bpm; Spontaneous; Pulse Ox 95% RA; valeria ar5 07/07 02:45 02:44 IV Status: Completed infusion vc vc 04:37 04:35 Patient left the ED. vc vc
[2019-07-07] MEDS ORDERED: NA CHLORIDE 0.9% 1,000 ML ONE (01:55)
[2019-07-07] MEDS ORDERED: SODIUM CHL 0.9% 1000 ML BAG IV ONE (04:30)
[2019-07-07] MEDS ORDERED: ONDANSETRON 4 MG/2 ML VIAL IV PRN (04:30)
[2019-07-07] MEDS ORDERED: NA CHLORIDE 0.9% 500 ML IV ONE (04:30)
[2019-07-07] MEDS ORDERED: ALBUTEROL 2.5 MG/3 ML NEB SOL NEB PRN (04:30)
[2019-07-07] MEDS ORDERED: VANCOMYCIN/NS 1 gm 1 GM/250 ML BAG IVPB ONE (04:45)
--- NOTE | 2019-07-07 04:52 | P.HP ---
Certification for Inpatient Patient admitted to: Inpatient With expected LOS: >2 Midnights Practitioner: I am a practitioner with admitting privileges, knowledge of patient current condition, hospital course, and medical plan of care. Services: Services provided to patient in accordance with Admission requirements found in Title 42 Section 412.3 of the Code of Federal Regulations Patient History Date of Service: 07/07/19 Reason for admission: fever and chills History of Present Illness: madhavi francisco is a a69yoM w/ pmhx of DM, HTN, obesity who presents to the ER w / 24hrs of chills and nausea and 1 episode of dysuria. he reports that when awoke he did not feel well. he was seen in [facility] ED 2/2 chills and was noted to have fever, hypoxia and tachycardia. he reports that during removal of gallbladder and appendix that he developed significant abdominal infections post -operative. he denied sob, sob, syncope, swelling, palpitation, sick contacts, travels, abdominal or back pain, cough, rashes, sores, decrease vision, sores. he denies previous episodes. he is evaluated in the ED while laying on the gurney. it is noted that his o2 sat is 94% on 2L NC w/ noted mild dyspnea while conversing. the etiology of s/s are elusive but patient is undergoing work up to determine cause and possible treatment. he denies tobacco,etoh and drugs. Allergies No Known Allergies Allergy (Unverified 04/04/12 22:24) Home Medications: Ascorbic Acid [Vitamin C] 500 mg PO DAILY 04/05/12 Azilsartan Medoxomil [Edarbi] 40 mg PO DAILY 04/05/12 Calcium Carb/Vit D3/Minerals [Caltrate-600 with Vit D Tab] 1,200 mg PO DAILY 05/06 Cholestyramine/Sucrose [Questran Packet] 4 gm PO DAILYPRN PRN 04/05/12 Docosahexanoic AC/Epa [Fish Oil 1,000 MG*] 4,000 mg PO DAILY 04/05/12 Fexofenadine HCl [Dawn] 1 tab PO DAILYPRN PRN 04/05/12 Multivitamin [Multi-Vitamin Daily] 1 tab PO DAILY 04/05/12 Niacin 2,000 mg PO DAILY 04/05/12 Pioglitazone HCl [Actos] 30 mg PO DAILY 04/05/12 Saxagliptin HCl/Metformin HCl [Kombiglyze Xr 2.5-1,000 mg Tab] 2 tab PO DAILY Triamcinolone Acetonide [Nasacort Aq] 2 sprays KRIS DAILYPRN PRN 04/05/12 Zinc [Zinc Chelated] 50 mg PO DAILY 04/05/12 Aspirin [Aspir-Low] 81 mg PO DAILY 07/07/19 Atorvastatin Calcium [Lipitor] 10 mg PO BEDTIME 07/07/19 Bimatoprost [Lumigan] 1 drop OP BEDTIME 07/07/19 Empagliflozin [Jardiance] 10 mg PO DAILY 07/07/19 Liraglutide [Victoza 2-Jose] 07/07/19 Losartan Potassium 100 mg PO 07/07/19 Metformin ER [Glucophage ER] 1,000 mg PO DAILY 07/07/19 Olopatadine HCl [Pazeo] 07/07/19 Pen Needle, Diabetic [Novofine Plus] 07/07/19 - Past Medical/Surgical History Diabetic: Yes - Social History Alcohol use: No CD- Drugs: No Review of Systems General: Fever, Chills, Malaise Eyes: Unremarkable ENT: Unremarkable Respiratory: As per HPI Cardiovascular: As per HPI, Unremarkable Gastrointestinal: As per HPI, Unremarkable Genitourinary: As per HPI, Unremarkable Musculoskeletal: As per HPI, Unremarkable Integumentary: Unremarkable Neurological: Unremarkable Physical Examination - Physical Exam General: Alert, Oriented x3, Cooperative, Mild distress (w/ dyspnea - mild noted only when conversing. otherwise well groomed and a/ox3), Obese HEENT: Atraumatic Neck: Supple, Other (large neck) Respiratory: Normal air movement Cardiovascular: No edema, Normal pulses, No murmurs, Other (tachycardia ) Capillary refill: <2 Seconds Gastrointestinal: Soft and benign, Non-distended, No tenderness, No guarding, Hyperactive Musculoskeletal: No clubbing, No swelling, No erythema Integumentary: No rashes Neurological: Normal speech, Normal affect, Other (gait not test ) External genitalia: Deferred Rectal: Deferred - Studies Laboratory Data (last 24 hrs) 07/06/19 20:25: PT 12.7 H, INR 1.08, APTT 33.4 07/06/19 20:25: WBC 20.0 H, Hgb 16.7, Hct 50.5 H, Plt Count 200 07/06/19 20:25: Sodium 138, Potassium 3.7, BUN 14, Creatinine 1.23, Glucose 140 H, Total Bilirubin 0.6, AST 23, ALT 47, Alkaline Phosphatase 72, Amylase 48, Lipase 131 Microbiology Data (last 24 hrs): 07/06/19 23:15 Throat Group A Streptococcus Rapid Screen - Final 07/06/19 22:14 Nasopharnyx Influenza Type A Antigen Screen - Final 07/06/19 22:14 Nasopharnyx Influenza Type B Antigen Screen - Final Assessment and Plan - Plan 69yoM admitted w/ sepsis w/o etiology started on sepsis protocol started on IVF, IV abx, monitor tele, type and screen CE trending procal ordered duonebs (pt wheezing on exam) w/ IS obtain cultures esr ordered strict i/o obtain TSH and lipid panel can consider repeat CTA chest w/ contrast if s/s remain elusive q48hrs can consider ID vs pulmonary DM obtain a1c start SSI HTN monitor BP and determine when to restart home meds or add PRN meds. - Advance Directives Does patient have a Living Will: No Does patient have a Durable POA for Healthcare: No
[2019-07-07] MEDS: NA CHLORIDE 0.9% 1,000 ML IV SCH ×2 (05:07→15:16)
[2019-07-07 05:39] VITALS: BMI 30.9
[2019-07-07] MEDS ORDERED: PIPER/TAZO/NS 3.375gm 3.375 GM/100 ML BAG IVPB ONE (05:45)
[2019-07-07 05:54] LABS: Absolute Lymphocytes (CBC) 1.5 K/uL (0.7-4.9); Basophils % 0.2 % (0-1.3); Hematocrit 46.3 % (39.6-49.0); Lymphocytes % 7.1 % (15.3-44.8); MPV 8.7 fL (7.6-11.3); RBC Red Blood Cell Count 5.19 M/uL (4.33-5.43)
[2019-07-07] MEDS ORDERED: NA CHLORIDE 0.9% 250 ML ONE (06:03)
[2019-07-07] MEDS ORDERED: VANCOMYCIN 1 GM/VIAL ONE (06:03)
[2019-07-07 06:23] LABS: ALT/SGPT 51 U/L (12-78); AST/SGOT 34 U/L (15-37); Albumin 3.3 g/dL (3.4-5.0); Alkaline Phosphatase 60 U/L (45-117); BUN Blood Urea Nitrogen 14 mg/dL (7-18); Bicarbonate 25 mmol/L (21-32); Bilirubin Total 0.7 mg/dL (0.2-1.0); CKMB Creatine Kinase MB < 1.0 ng/mL (0.3-3.6); Glucose Level 125 mg/dL (74-106); Magnesium 1.5 mg/dL (1.8-2.4); Potassium 3.7 mmol/L (3.5-5.1); Protein, Total 6.4 g/dL (6.4-8.2); Sodium Level 139 mmol/L (136-145); Troponin I < 0.02 ng/mL (0.0-0.045)
[2019-07-07] MEDS: INSULIN -REGULAR HUMAN 50 UNIT/0.5 ML ML SQ SCH ×4 (07:30→20:15)
[2019-07-07] MEDS ORDERED: IPRATROPIUM BROM 0.5MG/2.5ML NEB SCH (08:00)
[2019-07-07] MEDS ORDERED: PIPER/TAZO/NS 3.375gm 3.375 GM/100 ML BAG IVPB SCH ×3 (09:00→10:30)
[2019-07-07] MEDS ORDERED: IPRATROPIUM BROM 0.5MG/2.5ML NEB PRN (09:32)
[2019-07-07 10:24] LABS: CKMB Creatine Kinase MB < 1.0 ng/mL (0.3-3.6); Troponin I < 0.02 ng/mL (0.0-0.045)
--- NOTE | 2019-07-07 11:28 | RAD REPORT ---
EXAM DESCRIPTION: RAD - Chest Single View - 07/06/2019 10:46 pm CLINICAL HISTORY: SOB Chest pain. COMPARISON: CHEST PA AND LAT 2 VIEW dated 07/21/2013; CHEST SINGLE VIEW dated 04/04/2012; CHEST PA AND LAT 2 VIEW dated 07/22/2008; ABDOMEN ACUTE SERIES dated 07/07/2008 FINDINGS: Portable technique limits examination quality. Interstitial prominence is present throughout the lungs suggesting interstitial pneumonia or bronchit is. The heart is mildly enlarged size. No displaced fractures.
[2019-07-07] MEDS: PIPER/TAZO/NS 3.375gm 3.375 GM/100 ML BAG IVPB SCH ×2 (12:27→16:31)
--- NOTE | 2019-07-07 13:31 | PN ---
Date of Progress Note: 07/07/2019 History: Patient seen and examined, chart reviewed, and case discussed with RN. Medications: List reviewed. Code Status: Full. Patient overall doing well. Does not appear septic, has no complaints. Medications: List reviewed. Physical Examination: Vital Signs: Temperature 98.4, heart rate 103, blood pressure 114/58, respirations 16, O2 92% on 2 L via nasal cannula. T-max was 102.1. General: Awake, alert, oriented x3, some mild distress, ill-appearing male. Obese, BMI 31. CV: S1, S2. Sinus tachycardia. Peripheral pulses present. Respiratory: Moving air well bilaterally. No wheezing or stridor. No use of accessory muscles. Gastrointestinal: Abdomen is soft, nontender, nondistended. Positive bowel sounds. No guarding or rigidity. Extremities: No clubbing, cyanosis, or edema. Neurologic: Nonfocal. Laboratory Data: Sodium 139, potassium 3.7, chloride 105, CO2 25, BUN 14, creatinine 1.15, glucose 1 25, magnesium 1.5. Lactate 2.5. WBC 21,000, H and H 15.6 and 46.3, platelets 161, neutrophils 77%. Blood cultures are still pending. Influenza screen is negative. Group a rapid strep screen is also negative. Throat culture pending. Chest x-ray shows interstitial prominence throughout the lungs s uggesting interstitial pneumonia or bronchitis. CT scan of the abdomen shows no acute inflammatory f inding within the abdomen or pelvis, hepatomegaly, nonobstructing right nephrolith, left renal cyst, mild sigmoid colon diverticulosis without diverticulitis. Assessment And Plan: 69-year-old male with; 1.Sepsis, unknown etiology. We will continue with broad-spectrum IV antibiotics. Patient still hav ing high fevers 102. Cultures have been obtained. We will add sputum cultures. Consult Infectious Disease. Chest x-ray shows possible pneumonia, bronchitis. Influenza screen is negative. Strep scr een is negative. Throat cultures pending. No signs of meningitis. No phonophobia or photophobia. No neck stiffness. No diarrhea or abdominal pain. No odontogenic source is apparent. We will zahraa nue to monitor. White blood cell count trending up. Continue with IV fluids. CT scan of the abdome n was negative. 2.Diabetes mellitus type 2 with hyperglycemia, non-insulin requiring. We will continue with sliding scale insulin. Monitor blood glucose levels. 3.Hypertriglyceridemia. Continue home medications. 4.Glaucoma. We will continue with eyedrops. 5.Essential hypertension. Resume home medications as appropriate. LAURE Voice ID: [id number] Report ID: [id number]
[2019-07-07] MEDS ORDERED: Magnesium Sulfate 2gm IVPB 2 G/50 ML BAG IV ONE (15:00)
[2019-07-07] MEDS ORDERED: OLOPATADINE HCL EACH EYE PRN (16:04)
[2019-07-07] MEDS: ATORVASTATIN 10 MG TAB PO SCH (20:16)
[2019-07-08] MEDS: NA CHLORIDE 0.9% 1,000 ML IV SCH ×3 (00:07→20:32)
[2019-07-08] MEDS: PIPER/TAZO/NS 3.375gm 3.375 GM/100 ML BAG IVPB SCH ×3 (00:07→16:55)
[2019-07-08 06:45] LABS: Absolute Lymphocytes (CBC) 0.7 K/uL (0.7-4.9); Basophils % 0.3 % (0-1.3); Hematocrit 44.4 % (39.6-49.0); Lymphocytes % 6.6 % (15.3-44.8); MPV 8.8 fL (7.6-11.3); RBC Red Blood Cell Count 4.92 M/uL (4.33-5.43)
[2019-07-08 07:05] LABS: Albumin 3.1 g/dL (3.4-5.0); Bilirubin Total 0.7 mg/dL (0.2-1.0); Potassium 3.9 mmol/L (3.5-5.1); Protein, Total 6.5 g/dL (6.4-8.2)
[2019-07-08] MEDS: INSULIN -REGULAR HUMAN 50 UNIT/0.5 ML ML SQ SCH ×4 (07:30→20:32)
[2019-07-08] MEDS ORDERED: LOSARTAN POTASSIUM 50 MG TABLET PO SCH (09:00)
[2019-07-08] MEDS ORDERED: HOME MED 1 EA UNK (Losartan Potassium [Cozaar] 100 MG) PO SCH (09:00)
[2019-07-08] MEDS: FLUTICASONE 50MCG NASAL SPRAY NAS SCH (09:14)
[2019-07-08] MEDS: LOSARTAN POTASSIUM 100 MG TABLET PO SCH (09:15)
[2019-07-08] MEDS: EMPAGLIFLOZIN 10 MG PO SCH (09:16)
[2019-07-08] MEDS: LIRAGLUTIDE SQ SCH (09:17)
[2019-07-08] MEDS: COENZYME Q10- 200 MG CAP PO SCH (09:37)
--- NOTE | 2019-07-08 12:01 | EKG ---
Test Date: 2019-07-06 Test Time: 22:58:36 Button Station Worker: NATHALIA MEASUREMENT RESULTS: Intervals: Rate: 118 GA: 186 QRSD: 106 QT: 304 QTc: 426 [place]: P: 30 GA: 186 QRS: -40 T: -6 INTERPRETIVE STATEMENTS: Sinus tachycardia Low voltage QRS Incomplete right bundle branch block ST & T wave abnormality, consider anterior ischemia Abnormal ECG Compared to ECG 09/01/2016 17:15:58 Low QRS voltage now present Incomplete right bundle-branch block now present ST (T wave) deviation now present Sinus rhythm no longer present Ventricular premature complex(es) no longer present Electronically Signed On 07-08-19 12:00:34 CONSTRUCTION TEACHER by Alfredo Victoria
--- NOTE | 2019-07-08 14:08 | PN ---
Date of Progress Note: 07/08/2019 Subjective: The patient seen and examined. Chart reviewed and case discussed with RN. Patient is d oing well, had some low-grade fevers overnight. Did report some dysuria, however, it has improved. Medication List: Reviewed. Physical Examination: Vital Signs: Temperature 97.6, heart rate 88, blood pressure 123/65, respirations 18, O2 94% on room air. General: Awake, alert, oriented x3. Obese male. CV: S1, S2. Regular rate and rhythm. Peripheral pulses present. Respiratory: Moving air well bilaterally. No wheezing or stridor. Gastrointestinal: Abdomen is soft, nontender, nondistended. Positive bowel sounds. Extremities: No clubbing, cyanosis, or edema. Neurologic: Nonfocal. Laboratory Data: Sodium 140, potassium 3.9, chloride 108, CO2 of 25, BUN 13, creatinine 1.08, glucos e 116, calcium 8.7, total bilirubin 0.7, AST 19, ALT 43, alkaline phosphatase 66, albumin 3.1. Trigl ycerides 99, cholesterol 93, LDL 41, HDL 32. WBC 11.3, H and H 14.8 and 44.4, platelets 133, neutrop hils 79.9%. Cultures; urine culture growing out gram-negative rods. Blood cultures, no growth to da te. Assessment: A 69-year-old male with: 1.Sepsis, unclear etiology seems to be stemming from the urinary tract infection. Patient did repor t some dysuria. May also be chronic prostatitis. Still having low-grade fevers. White blood cell c ount is improved significantly to 11,000. We will follow up on ID and sensitivity. 2.Diabetes mellitus type 2 with hyperglycemia, non-insulin requiring. Continue with sliding scale i nsulin. Monitor Accu-Cheks. 3.Hypertriglyceridemia, stable. 4.Glaucoma. Continue eye drops. 5.Essential hypertension, stable. 6.Deep venous thrombosis prophylaxis, Lovenox. Plan: Pending culture results may be able to be discharged later today. SA/MODL Voice ID: [id number] Report ID: [id number]
[2019-07-08] MEDS ORDERED: ENOXAPARIN 40 MG/0.4 ML SQ SCH (17:00)
[2019-07-08] MEDS: ATORVASTATIN 10 MG TAB PO SCH (20:32)
[2019-07-08] MEDS ORDERED: BIMATOPROST OPHTH DROPS/2.5 ML BTL OPTH SCH (21:00)
[2019-07-08] MEDS ORDERED: BIMATOPROST 0.01% OPTH SCH (21:00)
[2019-07-09] MEDS: PIPER/TAZO/NS 3.375gm 3.375 GM/100 ML BAG IVPB SCH ×2 (00:17→08:44)
[2019-07-09] MEDS: NA CHLORIDE 0.9% 1,000 ML IV SCH (04:50)
[2019-07-09] MEDS: INSULIN -REGULAR HUMAN 50 UNIT/0.5 ML ML SQ SCH ×2 (07:30→11:30)
[2019-07-09 08:18] VITALS: BP 135/65; TEMP 97.1
[2019-07-09] MEDS: COENZYME Q10- 200 MG CAP PO SCH (08:44)
[2019-07-09] MEDS: FLUTICASONE 50MCG NASAL SPRAY NAS SCH (08:45)
[2019-07-09] MEDS: EMPAGLIFLOZIN 10 MG PO SCH (08:46)
[2019-07-09] MEDS: LOSARTAN POTASSIUM 100 MG TABLET PO SCH (08:46)
[2019-07-09] MEDS: LIRAGLUTIDE SQ SCH (08:48)
[2019-07-09 09:19] VITALS: O2SAT 92
--- NOTE | 2019-07-09 11:49 | RAD REPORT ---
EXAM DESCRIPTION: CT ABDOMEN AND PELVIS WITHOUT CONTRAST CLINICAL HISTORY: FEVER COMPARISON: None. TECHNIQUE: Axial unenhanced CT imaging of the abdomen and pelvis performed. Reformatted coronal and sagittal images reviewed. A dose reduction technique was utilized with automated exposure control according to patient size. FINDINGS: Mild right lower lobe atelectasis. Heart is normal in size. Liver is enlarged to approximately 20 cm. Normal attenuation. No biliary dilatation. Gallbladder has been resected. Spleen is enlarged to 14 cm. Normal pancreas. Normal adrenal glands. Posterior inferio r left renal exophytic 1.5 cm cyst. Nonobstructing 4 mm right renal pelvic stone. No hydronephrosis. The aorta is mildly atherosclerotic. Normal caliber inferior vena cava. Nonenlarged retrogression lym ph nodes. Normal stomach and small bowel loops. Appendix is not visualized. Mild sigmoid colon diverticulosis w ithout diverticulitis. No ascites or free air. Unremarkable bladder. Prostate is 4.8 x 3.7 x 5.2 cm. No pelvic free fluid. There is mild lower thoracic and moderate lumbar degenerative change. Vacuum disc at all lumbar disc levels. Intact bony pelvis. Normal hips. IMPRESSION: 1. No acute inflammatory finding within the abdomen or pelvis. 2. Hepatomegaly. 3. Nonobstructing right nephrolith. Left renal cyst. 4. Mild sigmoid colon diverticulosis without diverticulitis.. Electronically signed by: Jes Philip DO 07/07/2019 1:44 AM SITE LEASING AGENT Due to temporary technical issues with the PACS/Fluency reporting system, reports are being signed by the in house radiologist as a courtesy to ensure prompt reporting. The interpreting radiologist is f edgarly responsible for the content of the report.
--- NOTE | 2019-07-10 00:36 | DS ---
Date of Discharge: 07/09/2019 Admitting Diagnoses: 1.Sepsis without clear etiology. 2.Diabetes mellitus type 2 [id number] with hyperglycemia. 3.Essential hypertension, stable. 4.Obesity, BMI 31. 5.Mixed hyperlipidemia. 6.Glaucoma. Discharge Diagnoses: 1.Sepsis secondary to urinary tract infection, improved. 2.Acute cystitis with hematuria secondary to Citrobacter. 3.Diabetes mellitus type 2 with hyperglycemia, non-insulin requiring, stable. 4.Mixed hyperlipidemia, stable. 5.Glaucoma on medications. 6.Essential hypertension, stable. 7.Benign prostatic hyperplasia, start on Flomax. Hospital Course: Patient is a 69-year-old male with past medical history of diabetes, hypertension, hyperlipidemia, obesity, comes in with fever, chills, dysuria. Patient was found to be septic. Whit e count of over 20,000 with bandemia. Patient was started on broad-spectrum IV antibiotics. He had elevated lactate 2.6. Continue to be elevated several hours after despite IV fluid hydration. He is admitted to the hospital for further evaluation. Cultures were obtained. Blood cultures were negat padmini to date. His flu screen was negative. Throat culture was also negative. Urine culture did grow out Citrobacter koseri, which was sensitive to cephalosporins. ID was consulted, however, the patie nt is feeling significantly better. His white blood cell count essentially normalized, down to 11.3. His CT scan did not show any acute issues in the pelvis. He did have some hepatomegaly and some di verticulosis, but no diverticulitis. He does have a nonobstructing right nephrolith in the left linette l cyst. Patient was given Flomax and to follow up with his primary care physician and urologist with in the next week or so. Diet: Heart healthy. Activity: As tolerated. Medications: As per medication reconciliation list. Physical Examination: General: Awake, alert, and oriented x3. Elderly male, obese. CV: S1, S2. Respiratory: Moving air well bilaterally. Abdomen: Abdomen is soft, nontender, nondistended. Positive bowel sounds. Extremities: No clubbing, cyanosis, or edema. Neurologic: Nonfocal. Total time spent discharging patient was 36 minutes. SA/MODL Voice ID: [id number] Report ID: [id number]
== END 2019-07-09 11:54 | disposition home or self-care (01) | DRG 872 ==
LOC: ER 21:40 → ERHOLD 07-07 01:41 → 4TH 07-07 04:09
PROVIDERS: ADMIT Internal Medicine; ATTEND Internal Medicine
DX: A41.9 Sepsis, unspecified organism (principal); N30.01 Acute cystitis with hematuria; B96.89 Other specified bacterial agents as the cause of diseases classified elsewhere; E11.65 Type 2 diabetes mellitus with hyperglycemia; E78.2 Mixed hyperlipidemia; H40.9 Unspecified glaucoma; I10 Essential (primary) hypertension; N40.0 Benign prostatic hyperplasia without lower urinary tract symptoms; E66.9 Obesity, unspecified; Z68.31 Body mass index [BMI] 31.0-31.9, adult
CPT/HCPCS: 36415; 71045; 74176; 76377; 80048; 80053; 80061; 80076; 81003; 81015; 82150; 82550; 82553; 82947; 83036; 83605; 83690; 83735; 84145; 84443; 84484; 85025; 85610; 85730; 86308; 86850; 86900; 86901; 87040; 87070; 87077; 87081; 87086; 87088; 87186; 87804; 93005; 94760; 96361; 96365; 99285; J1650; J2543; J3370; J3475; J7030

== ENCOUNTER 2019-09-08 10:19 | Emergency (ER) | payer OTHER ==
--- OUTSIDE RECORDS SUMMARY | 2019-09-08 10:21 | XMS REPORT ---
[...] MetFORMIN HCl ER [facility] [id number] 500 MG Oral Active TAKE 2 TABLETS BY MOUTH TWICE A DAY PredniSONE [facility] 84164007021 20 MG Oral Active TAKE 1 TABLET BY MOUTH EVERY DAY Aspir-81 [facility] 59559946187 81 MG Orally Active 1 tablet Once a day MethylPREDNISolone [facility] 54113938536 4 MG Orally Jan Active as directed 2017 Victoza [facility] 18227327874 18 MG/3ML Active INJECT UNDER Subcutaneous THE SKIN 1.8MG EVERY DAY Hujsvdlqo-Urtovodh-Z [facility] 05835975754 30-2-10 MG/5ML Active TAKE 2 M Oral TEASPOONSFUL BY MOUTH THREE TIMES A DAY NEEDED FOR 10 DAYS Fluzone High-Dose [facility] 97312082467 0.5 ML Active TO BE Intramuscular ADMINISTERED BY PHARMACIST FOR IMMUNIZATION NovoFine Plus [facility] 27418526259 32G X 4 MM Active USE ONCE DAILY Ketoconazole [facility] 63178229266 2 % External Active USE SHAMPOO 2-3X WEEKLY NEEDED, LEAVE LATHER IN PLACE FOR 5 MINUTES PRIOR TO RINSING. Betamethasone [facility] 03483526406 0.05 % Active APPLY TO Dipropionate External AFFECTED AREA TWICE A DAY NEEDED FOR UP TO ONE WEEK. TAKE ONE WEEK BREAK BETWEEN TREATME Montelukast Sodium ND 98637733855 10 MG Oral Active TAKE 1 TABLET BY MOUTH EVERY DAY Losartan Potassium ND 65379728875 100 MG Oral Active TAKE 1 TABLET BY MOUTH EVERY DAY (NEEDS BLOOD WORK AND OFFICE VISIT BEFORE NEXT REFILL) Atorvastatin Calcium [facility] 47311001239 10 MG Oral Active TAKE 1 TABLET BY MOUTH EVERY DAY (NEED BLOOD WORK AND OFFICE VISIT BEFORE NEXT REFILL) Neida [facility] 74387114419 0.01 % Active PUT 1 DROP Ophthalmic INTO BOTH EYES AT BEDTIME Results No Known Results Summary Purpose eClinicalWorks Submission
[2019-09-08 10:47] LABS: Urine Blood 2+ (NEG); Urine Glucose 2+ (NEG); Urine Protein NEGATIVE (NEG); Urine Specific Gravity 1.015 (1.005-1.030)
[2019-09-08] MEDS ORDERED: LIDOCAINE 1% MPF 2 ML AMPULE ONE (11:08)
[2019-09-08] MEDS ORDERED: SMZ./TMP. 800/160 MG TABLET ONE (11:08)
[2019-09-08] MEDS ORDERED: CEFTRIAXONE 1000 MG/VIAL ONE (11:09)
--- NOTE | 2019-09-08 11:21 | ER ---
Nurse's Notes [facility] Name: Wesley Medina Age: 69 yrs Sex: Male : 1950 Arrival Date: 09/08/2019 Time: 10:21 Bed 6 Private MD: Seth Salomon Diagnosis: Urinary tract infection, site not specified Presentation: 09/07 10:25 Chief complaint: Patient states: "I think I have a UTI". Pt reports burning with ss urination and frequency that began 2-3 days ago. Coronavirus screen: Patient denies fever greater than 100.4F, cough, shortness of breath, or difficulty breathing. Proceed with normal triage process. Ebola Screen: Patient denies exposure to infectious person. Patient denies travel to an Ebola-affected area in the 21 days before illness onset. Initial Sepsis Screen: Does the patient have a suspected source of infection? Yes: Dysuria/Frequency/Urgency/UTI. Risk Assessment: Do you want to hurt yourself or someone else? Patient reports no desire to harm self or others. 10:25 Method Of Arrival: Ambulatory ss 10:25 Acuity: MILLA 4 ss 10:56 Initial Sepsis Screen: Does the patient meet any 2 criteria? No. Patient's initial ph sepsis screen is negative. Historical: - Allergies: 10:26 No Known Allergies; ss - PMHx: 10:26 Diabetes - NIDDM; Hyperlipidemia; Hypertension; ss - PSHx: 10:26 Tonsillectomy; R meniscus repair; Cholecystectomy; Appendectomy; ss - Immunization history:: Adult Immunizations up to date. - Social history:: Smoking status: Patient denies any tobacco usage or history of. Screenin:56 Abuse screen: Denies threats or abuse. Denies injuries from another. Nutritional ph screening: No deficits noted. Tuberculosis screening: No symptoms or risk factors identified. Fall Risk None identified. Assessment: 10:57 General: Appears in no apparent distress. comfortable, well groomed, Behavior is calm, ph cooperative, appropriate for age, Denies fever, chills. Pain: Complains of pain in pelvis. Neuro: Level of Consciousness is awake, alert, obeys commands, Oriented to person, place, time, situation. Cardiovascular: Capillary refill < 3 seconds in bilateral fingers Patient's skin is warm and dry. Respiratory: Airway is patent Respiratory effort is even, unlabored. : Reports burning with urination, urinary frequency. Derm: Skin is intact, is healthy with good turgor, Skin is pink, warm \\T\\ dry. Musculoskeletal: Circulation, motion, and sensation intact. Range of motion: intact in all extremities. Vital Signs: 10:32 Pulse 112; Resp 17; Temp 98.7(O); Pulse Ox 97% on R/A; ss 10:56 BP 134 / 82; Pulse 87; Resp 18; Pulse Ox 97% on R/A; ph 11:42 Temp 98.2; ph ED Course: 10:21 Patient arrived in ED. mr 10:22 Seth Salomon MD is Private Physician. mr 10:25 Triage completed. ss 10:26 Luis F Chan PA is PHCP. jmm 10:26 Arm band placed on right wrist. ss 10:27 Ramiro Zamarripa MD is Attending Physician. jmm 10:34 Urine collected: clean catch specimen, clear. dh3 10:56 Alba Laughlin, RN is Primary Nurse. ph 10:57 Patient has correct armband on for positive identification. Bed in low position. Call ph light in reach. Side rails up X 1. Pulse ox on. NIBP on. Door closed. Noise minimized. Warm blanket given. 11:20 Seth Salomon MD is Referral Physician. [facility] 11:43 No provider procedures requiring assistance completed. Patient did not have IV access ph during this emergency room visit. Administered Medications: 11:16 Drug: Rocephin (cefTRIAXone) 1 grams Route: IM; Site: right vastus lateralis; ph 11:36 Follow up: Response: No adverse reaction ph 11:16 Drug: Bactrim (160 mg-800 mg (DS) 1 tablet Route: PO; ph 11:36 Follow up: Response: No adverse reaction ph Outcome: 11:20 Discharge ordered by . jmm 11:43 Discharged to home ambulatory. ph 11:43 Condition: good 11:43 Discharge instructions given to patient, Instructed on discharge instructions, follow up and referral plans. medication usage, Demonstrated understanding of instructions, follow-up care, medications, Prescriptions given X 2. 11:43 Patient left the ED. ph Addendum: 09/10/2019 07:51 Addendum: Culture Results: Positive urine culture. No further action required. Bacteria i w sensitive to prescribed antibiotic. Signatures: Luis F Chan PA PA [facility] Seo, Brooke mr Nolvia Pascual, RN RN Yany Kraft RN RN Alba Laughlin RN RN Forrest, Luna [facility]
--- NOTE | 2019-09-08 11:21 | EDPHYS ---
Physician Documentation [facility] Name: Wesley Medina Age: 69 yrs Sex: Male : 1950 Arrival Date: 09/08/2019 Time: 10:21 Bed 6 Private MD: Seth Salomon ED Physician Ramiro Zamarripa HPI: 09/07 11:11 This 69 yrs old Male presents to ER via Ambulatory with complaints of Urinary jmm Problem. 11:11 The patient presents with urinary symptoms, dysuria, urinary frequency. Onset: The jmm symptoms/episode began/occurred gradually, 3 day(s) ago. Modifying factors: The symptoms are alleviated by nothing, the symptoms are aggravated by nothing. Associated signs and symptoms: Pertinent positives: fever, Pertinent negatives: nausea, vomiting. This is a 69 year old male with a history of dm, hlp, htn that presents to the ED with complaints of painful urination, increased frequency beginning approx 3 days ago. Denies vomiting, back pain, or abdominal pain. . Historical: - Allergies: 10:26 No Known Allergies; ss - PMHx: 10:26 Diabetes - NIDDM; Hyperlipidemia; Hypertension; ss - PSHx: 10:26 Tonsillectomy; R meniscus repair; Cholecystectomy; Appendectomy; ss - Immunization history:: Adult Immunizations up to date. - Social history:: Smoking status: Patient denies any tobacco usage or history of. ROS: 11:11 Constitutional: Negative for fever, chills, and weight loss, Cardiovascular: Negative jmm for chest pain, palpitations, and edema, Respiratory: Negative for shortness of breath, cough, wheezing, and pleuritic chest pain. 11:11 : Positive for urinary symptoms. 11:11 All other systems are negative. Exam: 11:11 Constitutional: This is a well developed, well nourished patient who is awake, alert, jmm and in no acute distress. Head/Face: atraumatic. Eyes: EOMI, no conjunctival erythema appreciated ENT: Moist Mucus Membranes Neck: Trachea midline, Supple Chest/axilla: Normal chest wall appearance and motion. Cardiovascular: Regular rate and rhythm. No edema appreciated Respiratory: Normal respirations, no respiratory distress appreciated Abdomen/GI: Non distended, soft Back: Normal ROM Skin: General appearance color normal 11:11 Abdomen/GI: Inspection: abdomen appears normal, Bowel sounds: normal, Palpation: abdomen is soft and non-tender, in all quadrants. Vital Signs: 10:32 Pulse 112; Resp 17; Temp 98.7(O); Pulse Ox 97% on R/A; ss 10:56 BP 134 / 82; Pulse 87; Resp 18; Pulse Ox 97% on R/A; ph 11:42 Temp 98.2; ph MDM: 10:27 Patient medically screened. [facility] 11:11 Data reviewed: vital signs, nurses notes. Counseling: I had a detailed discussion with vangie the patient and/or guardian regarding: the historical points, exam findings, and any diagnostic results supporting the discharge/admit diagnosis, lab results, the need for outpatient follow up, to return to the emergency department if symptoms worsen or persist or if there are any questions or concerns that arise at home. ED course: Patient is alert and non toxic in appearance in the ED. Previous culture results reviewed. Patient is given strict return precautions due to previous hospitalization. Patient understood and agrees with the plan of care. . 09/07 10:34 Order name: Urine Dipstick--Ancillary (enter results); Complete Time: 10:51 ms 09/07 10:37 Order name: Urine Culture ss 09/07 10:55 Order name: Vital Signs; Complete Time: 10:58 [facility] Administered Medications: 11:16 Drug: Rocephin (cefTRIAXone) 1 grams Route: IM; Site: right vastus lateralis; ph 11:36 Follow up: Response: No adverse reaction ph 11:16 Drug: Bactrim (160 mg-800 mg (DS) 1 tablet Route: PO; ph 11:36 Follow up: Response: No adverse reaction ph Disposition: 09/08/19 11:20 Discharged to Home. Impression: Urinary tract infection, site not specified. - Condition is Stable. - Discharge Instructions: Urinary Tract Infection, Adult. - Prescriptions for Bactrim DS 800- 160 mg Oral Tablet - take 1 tablet by ORAL route every 12 hours for 10 days; 20 tablet. Flomax 0.4 mg Oral Capsule, Sust. Release 24 hr - take 1 capsule by ORAL route once daily 1/2 hour following the same meal each day; 30 capsule. - Medication Reconciliation Form, Thank You Letter, Antibiotic Education, Prescription Opioid Use form. - Follow up: Seth Salomon MD; When: 2 - 3 days; Reason: Recheck today's complaints, Continuance of care, Re-evaluation by your physician. Addendum: 09/09/2019 13:46 Co-signature as Attending Physician, Ramiro Zamarripa MD I agree with the assessment and c erwin plan of care. Signatures: Dispatcher [employer] EDMT Ramiro Zamarripa MD MD cha Mickail, Joel, PA PA jmm Smirch, Shelby, RN RN Alba Laughlin RN RN ph Corrections: (The following items were deleted from the chart) 09/07 11:43 11:20 09/08/2019 11:20 Discharged to Home. Impression: Urinary tract infection, site ph not specified. Condition is Stable. Forms are Medication Reconciliation Form, Thank You Letter, Antibiotic Education, Prescription Opioid Use. Follow up: Seth Salomon; When: 2 - 3 days; Reason: Recheck today's complaints, Continuance of care, Re-evaluation by your physician. vangie
[2019-09-08 11:52] VITALS: BP 134/82; O2SAT 97
[2019-09-08 11:54] VITALS: TEMP 98.2
== END 2019-09-08 11:43 | disposition home or self-care (01) ==
LOC: ER 10:19
DX: N39.0 Urinary tract infection, site not specified (principal); I10 Essential (primary) hypertension
CPT/HCPCS: 87088; 87086; 87077; 87186; 81003; 96372; 99284; J2001

== ENCOUNTER 2022-12-16 10:04 | Emergency (ER) | payer OTHER ==
--- OUTSIDE RECORDS SUMMARY | 2022-12-16 10:10 | XMS REPORT | Continuity of Care Document ---
:1950 Author Organization [facility] t Address [address] [place] [address] Care Team Providers Name Role Phone Seth Salomon MD Primary Care Physician Dionte Collins Attending Clinician Unavailable Seth Salomon Admitting Clinician Unavailable Payers Payer Name Policy Type Policy Number Effective Date Expiration Date S mamadou [employer]ET[employer] MEDICARE C1 [id number] [facility] - [facility] Problems Condition Condition Condition Status Onset Resolution Last Treating Co mments Source Name Details Category Date Date Treatment Clinician Date No known No known Disease Metho di active active st problems problems Hospit a l [id number] Body mass Problem Com mon index [facility] [BMI] - [facility] 36.0-36.9, [facility] [id number] Morbid Problem Commo n 9104 (severe) Spirit obesity - [facility] due to [facility] Hearing Hearing Problem Common loss loss [facility] - [facility] [id number] Right Problem Common sided Spirit sciatica - [facility] [id number] Pain in Problem Common right hip Spirit - [facility] [id number] Type 2 Problem Common diabetes Spirit mellitus - [facility] with [facility] long-term current use of insulin [id number] BPH loc w Problem Com mon urin Spirit obs/LUTS - [facility] [id number] Dependence Problem Co mmon on other Spirit enabling - [facility]I machines [facility] [id number] Allergic Problem Commo n rhinitis, Spirit unspecifie - [facility] d seasonalit [facility] y, Medical unspecifie Center d trigger [id number] Absolute Problem Commo n glaucoma, Spirit unspecifie - [facility] d [facility] [id number] Mixed Problem Common hyperlipid [facility] emia - [facility] [id number] Essential Problem Comm on (primary) Spirit hypertensi - [facility] on [facility] [id number] Obstructiv Problem Com mon e sleep Spirit apnea - [facility] (adult) (pediatric [facility] [id number] Hypercalce Problem Com mon james Spirit - [facility] Allergies, Adverse Reactions, Alerts This patient has no known allergies or adverse reactions. Family History Family Member Diagnosis Comments Start Date Stop Date Source Natural father Cancer [facility] Natural mother Cancer [facility] Social History Social Habit Start Date Stop Date Quantity Comments Source Sexual orientation 2021-10-31 Heterosexual Meth odist 11:46:39 (finding) Hospital Gender identity 2021-10-31 Identifies as male M ethodist 11:46:39 gender (finding) Hospital History of Tobacco [facility] - Use [facility] Sex Assigned At Common Sp sandy - [facility] History of Social 2019-01-28 2019-01-[address] function 00:00:00 00:00:00 Hospital Tobacco use and 2018-10-04 2018-10-04 Smokeless tobacco Me thodist exposure 00:00:00 00:00:00 non-user Hospital Alcohol intake 2018-10-04 2018-10-04 Current non-drinker M ethodist 00:00:00 00:00:00 of alcohol Hospital (finding) Smoking Status Start Date Stop Date Source Never Smoker [facility] Medications Ordered Filled Start Stop Current Ordering Indication Dosage Frequency Signature Comments Components Source Medication Medication Date Date Medication? Clinician (SIG) Name Name No known No No known Metho di medications 5- medication [facility] 14[facility] No known 2019- No No known Metho di medications 5- medication [facility] 14[facility] No known 2019-0 No No known Metho di medications 5- [facility] 14[facility]: [facility] l No known 2019 No No known Metho di medications 5- medication [facility] 14:57: [facility] l MethylPREDN MethylPREDN 2018-0 2018- No Hardik as Common ISolone ISolone 01-12 08- Teresa directed Sp sandy 00:00: 00:00 - [facility]I 00 :00 [facility] MetFORMIN MetFORMIN Yes Hardik TAKE 2 C ommon HCl ER HCl ER Teresa TABLETS BY Spi rit MOUTH - [facility] TWICE A St DAY [facility] PredniSONE PredniSONE Yes Hardik TAKE 1 Common Teresa TABLET BY Spirit MOUTH - CHI EVERY DAY [facility] Aspir-81 Aspir-81 Yes Hardik 1 tablet C ommon Teresa Spirit - [facility] Victoza Victoza Yes Hardik INJECT Commo n Teresa UNDER THE Spirit SKIN 1.8MG - CHI EVERY DAY [facility] Pseudoeph-B Pseudoeph-B Yes Hardik TAKE 2 Common romphen-DM romphen-DM Teresa TEASPOONSF Spirit UL BY - [facility] MOUTH [facility] TIMES [facility] DAY Center NEEDED FOR 10 DAYS Fluzone Fluzone Yes Hardik TO BE Common High-Dose High-Dose Teresa ADMINISTER Spirit ED BY - [facility] PHARMACIST [facility] IMMUNIZATI Medical ON Center NovoFine NovoFine Yes Hardik USE ONCE C ommon Plus Plus Teresa DAILY Spirit - [facility] Ketoconazol Ketoconazol Yes Hardik USE Common e e Teresa SHAMPOO Spirit 2-3X - CHI WEEKLY St NEEDED, [facility] LEAVE Medical LATHER IN Center PLACE FOR 5 MINUTES PRIOR TO RINSING. Betamethaso Betamethaso Yes Hardik APPLY TO Common ne ne Teresa AFFECTED Spirit Dipropionat Dipropionat AREA TWICE - CHI e e A DAY St NEEDED FOR [facility] UP TO ONE Medical WEEK. TAKE Center ONE WEEK BREAK BETWEEN TREATME Montelukast Montelukast Yes Hardik TAKE 1 Common Sodium Sodium Teresa TABLET BY Spir it MOUTH - CHI EVERY DAY [facility] Losartan Losartan Yes Hardik TAKE 1 Com mon Potassium Potassium Teresa TABLET BY Spirit MOUTH - [facility] EVERY DAY St (NEEDS [facility] BLOOD WORK Medical AND OFFICE Center VISIT BEFORE NEXT REFILL) Atorvastati Atorvastati Yes Hardik TAKE 1 Common n Calcium n Calcium Teresa TABLET BY Spirit MOUTH - [facility] EVERY DAY St (NEED [facility] BLOOD WORK Medical AND OFFICE Center VISIT BEFORE NEXT REFILL) Lumigan Lumigan Yes Hardik PUT 1 DROP C saundra Teresa INTO BOTH Spirit EYES AT - CHI BEDTIME [facility] Tylenol Tylenol No Tylenol Arthritis Arthritis Arthritis Pain Pain Pain Super C Super C No Super C Complex Complex Complex Aspir-81 81 Aspir-81 81 No 1{table QD Aspir-81 MG MG t} 81 MG Rittman 3 Rittman 3 No Rittman 3 Vitamin C Vitamin C No Vitamin C Vitamin A Vitamin A No Vitamin A Atorvastati Atorvastati No Atorvastat n Calcium n Calcium in Calcium 10 MG 10 MG 10 MG Lumomar Carrasquillo No Lumigan 0.01 % 0.01 % 0.01 % CoQ-10 CoQ-10 No CoQ-10 NovoFine NovoFine No NovoFine Plus 32G X Plus 32G X Plus 32G X 4 MM 4 MM 4 MM Tamsulosin Tamsulosin No Tamsulosin HCl 0.4 MG HCl 0.4 MG HCl 0.4 MG Vitamin E Vitamin E No Vitamin E Vitamin D3 Vitamin D3 No Vitamin D3 Fluticasone Fluticasone No Fluticason Propionate Propionate e 50 MCG/ACT 50 MCG/ACT Propionate 50 MCG/ACT Zinc - Zinc - No Zinc - Losartan Losartan No QD Losartan Potassium Potassium Potassium 100 MG 100 MG 100 MG Atorvastati Atorvastati No QD Atorvastat n Calcium n Calcium in Calcium 10 MG 10 MG 10 MG metFORMIN metFORMIN No 2{table BID metFORMIN HCl ER 500 HCl ER 500 ts} HCl ER 500 MG MG MG Victoza 18 Victoza 18 No QD Victoza 18 MG/3ML MG/3ML MG/3ML Ketoconazol Ketoconazol No e 2 % e 2 % Losartan Losartan No Potassium Potassium 100 MG 100 MG NovoFine NovoFine No Plus 32G X Plus 32G X 4 MM 4 MM Albuterol Albuterol No 1{puff_ 6xD Sulfate HFA Sulfate HFA as_need 108 (90 108 (90 ed} Base) Base) MCG/ACT MCG/ACT Probiotic Probiotic No Montelukast Montelukast No Sodium 10 Sodium 10 MG MG Tamsulosin Tamsulosin No BID HCl 0.4 MG HCl 0.4 MG Tumersaid - Tumersaid - No Betamethaso Betamethaso No ne ne Dipropionat Dipropionat e 0.05 % e 0.05 % Cosamin ASU Cosamin ASU No for Joint for Joint Health Health Super C Super C No Complex Complex Aspir-81 81 Aspir-81 81 No 1{table QD MG MG t} Rittman 3 Rittman 3 No Vitamin C Vitamin C No Vitamin A Vitamin A No Tylenol Tylenol No Arthritis Arthritis Pain Pain Lumigan Lumigan No 0.01 % 0.01 % CoQ-10 CoQ-10 No Fluzone Fluzone No Atorvastati Atorvastati No n Calcium n Calcium 10 MG 10 MG Vitamin E Vitamin E No Vitamin D3 Vitamin D3 No Fluticasone Fluticasone No Propionate Propionate 50 MCG/ACT 50 MCG/ACT Zinc - Zinc - No Losartan Losartan No QD Potassium Potassium 100 MG 100 MG Atorvastati Atorvastati No QD n Calcium n Calcium 10 MG 10 MG metFORMIN metFORMIN No 2{table BID HCl ER 500 HCl ER 500 ts} MG MG Victoza 18 Victoza 18 No QD MG/3ML MG/3ML Albuterol Albuterol No 1{puff_ 6xD Albuterol Sulfate HFA Sulfate HFA as_need Sulfate 108 (90 108 (90 ed} HFA 108 Base) Base) (90 Base) MCG/ACT MCG/ACT MCG/ACT metFORMIN metFORMIN No 2{table BID metFORMIN HCl ER 500 HCl ER 500 ts} HCl ER 500 MG MG MG Ketoconazol Ketoconazol No Ketoconazo e 2 % e 2 % le 2 % Fluticasone Fluticasone No Fluticason Propionate Propionate e 50 MCG/ACT 50 MCG/ACT Propionate 50 MCG/ACT Tamsulosin Tamsulosin No Tamsulosin HCl 0.4 MG HCl 0.4 MG HCl 0.4 MG - 81 Aspir- 81 No 1{table QD Aspir-81 MG MG t} 81 MG Atorvastati Atorvastati No Atorvastat n Calcium n Calcium in Calcium 10 MG 10 MG 10 MG Lumigan Lumigan No Lumigan 0.01 % 0.01 % 0.01 % Vitamin A Vitamin A No Vitamin A Super C Super C No Super C Complex Complex Complex Rittman 3 Rittman 3 No Rittman 3 CoQ-10 CoQ-10 No CoQ-10 Losartan Losartan No QD Losartan Potassium Potassium Potassium 100 MG 100 MG 100 MG Betamethaso Betamethaso No Betamethas ne ne one Dipropionat Dipropionat Dipropiona e 0.05 % e 0.05 % te 0.05 % Fluzone Fluzone No Fluzone NovoFine NovoFine No NovoFine Plus 32G X Plus 32G X Plus 32G X 4 MM 4 MM 4 MM Losartan Losartan No Losartan Potassium Potassium Potassium 100 MG 100 MG 100 MG Montelukast Montelukast No Montelukas Sodium 10 Sodium 10 t Sodium MG MG 10 MG Atorvastati Atorvastati No QD Atorvastat n Calcium n Calcium in Calcium 10 MG 10 MG 10 MG Tumersaid - Tumersaid - No Tumersaid - Victoza 18 Victoza 18 No QD Victoza 18 MG/3ML MG/3ML MG/3ML Cosamin ASU Cosamin ASU No Cosamin for Joint for Joint ASU for Health Health Joint Health Tamsulosin Tamsulosin No Tamsulosin HCl 0.4 MG HCl 0.4 MG HCl 0.4 MG Tylenol Tylenol No Tylenol Arthritis Arthritis Arthritis Pain Pain Pain Zinc - Zinc - No Zinc - Vitamin C Vitamin C No Vitamin C Probiotic Probiotic No Probiotic Vitamin E Vitamin E No Vitamin E Vitamin D3 Vitamin D3 No Vitamin D3 Zinc - Zinc - No Zinc - Victoza 18 Victoza 18 No Victoza 18 MG/3ML MG/3ML MG/3ML Victoza 18 Victoza 18 No QD Victoza 18 MG/3ML MG/3ML MG/3ML Novofine Novofine No Novofine Pen Needle Pen Needle Pen Needle 32G X 6 MM 32G X 6 MM 32G X 6 MM Vitamin E Vitamin E No Vitamin E Cosamin ASU Cosamin ASU No Cosamin for Joint for Joint ASU for Health Health Joint Health Atorvastati Atorvastati No 1{table QD Atorvastat n Calcium n Calcium t} in Calcium 10 MG 10 MG 10 MG Fluzone Fluzone No Fluzone Tylenol Tylenol No Tylenol Arthritis Arthritis Arthritis Pain Pain Pain metFORMIN metFORMIN No 2{table BID metFORMIN HCl ER 500 HCl ER 500 ts} HCl ER 500 MG MG MG Montelukast Montelukast No Montelukas Sodium 10 Sodium 10 t Sodium MG MG 10 MG Tamsulosin Tamsulosin No Tamsulosin HCl 0.4 MG HCl 0.4 MG HCl 0.4 MG Fluticasone Fluticasone No Fluticason Propionate Propionate e 50 MCG/ACT 50 MCG/ACT Propionate 50 MCG/ACT Vitamin D3 Vitamin D3 No Vitamin D3 Metoprolol Metoprolol No 1{capsu QD Metoprolol Succinate Succinate le} Succinate 25 MG 25 MG 25 MG Aspir-81 81 Aspir-81 81 No 1{table QD Aspir-81 MG MG t} 81 MG Atorvastati Atorvastati No Atorvastat n Calcium n Calcium in Calcium 10 MG 10 MG 10 MG CoQ-10 CoQ-10 No CoQ-10 Lumigan Lumigan No Lumigan 0.01 % 0.01 % 0.01 % Ketoconazol Ketoconazol No Ketoconazo e 2 % e 2 % le 2 % Losartan Losartan No Losartan Potassium Potassium Potassium 100 MG 100 MG 100 MG Vitamin A Vitamin A No Vitamin A Rittman 3 Rittman 3 No Rittman 3 Vitamin C Vitamin C No Vitamin C Tumersaid - Tumersaid - No Tumersaid - Tamsulosin Tamsulosin No Tamsulosin HCl 0.4 MG HCl 0.4 MG HCl 0.4 MG Probiotic Probiotic No Probiotic Losartan Losartan No 1{table QD Losartan Potassium Potassium t} Potassium 100 MG 100 MG 100 MG NovoFine NovoFine No NovoFine Plus 32G X Plus 32G X Plus 32G X 4 MM 4 MM 4 MM Zinc - Zinc - No Zinc - Victoza 18 Victoza 18 No Victoza 18 MG/3ML MG/3ML MG/3ML Victoza 18 Victoza 18 No QD Victoza 18 MG/3ML MG/3ML MG/3ML Novofine Novofine No Novofine Pen Needle Pen Needle Pen Needle 32G X 6 MM 32G X 6 MM 32G X 6 MM Vitamin E Vitamin E No Vitamin E Cosamin ASU Cosamin ASU No Cosamin for Joint for Joint ASU for Health Health Joint Health Atorvastati Atorvastati No 1{table QD Atorvastat n Calcium n Calcium t} in Calcium 10 MG 10 MG 10 MG Fluzone Fluzone No Fluzone Tylenol Tylenol No Tylenol Arthritis Arthritis Arthritis Pain Pain Pain metFORMIN metFORMIN No 2{table BID metFORMIN HCl ER 500 HCl ER 500 ts} HCl ER 500 MG MG MG Montelukast Montelukast No Montelukas Sodium 10 Sodium 10 t Sodium MG MG 10 MG Tamsulosin Tamsulosin No Tamsulosin HCl 0.4 MG HCl 0.4 MG HCl 0.4 MG Fluticasone Fluticasone No Fluticason Propionate Propionate e 50 MCG/ACT 50 MCG/ACT Propionate 50 MCG/ACT Vitamin D3 Vitamin D3 No Vitamin D3 Metoprolol Metoprolol No 1{capsu QD Metoprolol Succinate Succinate le} Succinate 25 MG 25 MG 25 MG Aspir-81 81 Aspir-81 81 No 1{table QD Aspir-81 MG MG t} 81 MG Atorvastati Atorvastati No Atorvastat n Calcium n Calcium in Calcium 10 MG 10 MG 10 MG CoQ-10 CoQ-10 No CoQ-10 Lumigan Lumigan No Lumigan 0.01 % 0.01 % 0.01 % Ketoconazol Ketoconazol No Ketoconazo e 2 % e 2 % le 2 % Losartan Losartan No Losartan Potassium Potassium Potassium 100 MG 100 MG 100 MG Vitamin A Vitamin A No Vitamin A Rittman 3 Rittman 3 No Rittman 3 Vitamin C Vitamin C No Vitamin C Tumersaid - Tumersaid - No Tumersaid - Tamsulosin Tamsulosin No Tamsulosin HCl 0.4 MG HCl 0.4 MG HCl 0.4 MG Probiotic Probiotic No Probiotic Losartan Losartan No 1{table QD Losartan Potassium Potassium t} Potassium 100 MG 100 MG 100 MG NovoFine NovoFine No NovoFine Plus 32G X Plus 32G X Plus 32G X 4 MM 4 MM 4 MM Vitamin E Vitamin E No Vitamin E Tamsulosin Tamsulosin No Tamsulosin HCl 0.4 MG HCl 0.4 MG HCl 0.4 MG Zinc - Zinc - No Zinc - Cosamin ASU Cosamin ASU No Cosamin for Joint for Joint ASU for Health Health Joint Health Ketoconazol Ketoconazol No Ketoconazo e 2 % e 2 % le 2 % Tylenol Tylenol No Tylenol Arthritis Arthritis Arthritis Pain Pain Pain Losartan Losartan No Losartan Potassium Potassium Potassium 100 MG 100 MG 100 MG Montelukast Montelukast No Montelukas Sodium 10 Sodium 10 t Sodium MG MG 10 MG metFORMIN metFORMIN No metFORMIN HCl ER 500 HCl ER 500 HCl ER 500 MG MG MG Lumigan Lumigan No Lumigan 0.01 % 0.01 % 0.01 % Fluticasone Fluticasone No Fluticason Propionate Propionate e 50 MCG/ACT 50 MCG/ACT Propionate 50 MCG/ACT Atorvastati Atorvastati No Atorvastat n Calcium n Calcium in Calcium 10 MG 10 MG 10 MG Rittman 3 Rittman 3 No Rittman 3 Novofine Novofine No Novofine Pen Needle Pen Needle Pen Needle 32G X 6 MM 32G X 6 MM 32G X 6 MM Vitamin C Vitamin C No Vitamin C Aspir-81 81 Aspir-81 81 No 1{table QD Aspir-81 MG MG t} 81 MG Victoza 18 Victoza 18 No Victoza 18 MG/3ML MG/3ML MG/3ML Fluzone Fluzone No Fluzone CoQ-10 CoQ-10 No CoQ-10 Victoza 18 Victoza 18 No QD Victoza 18 MG/3ML MG/3ML MG/3ML Vitamin D3 Vitamin D3 No Vitamin D3 Vitamin A Vitamin A No Vitamin A Tumersaid - Tumersaid - No Tumersaid - Metoprolol Metoprolol No 1{capsu QD Metoprolol Succinate Succinate le} Succinate 25 MG 25 MG 25 MG Probiotic Probiotic No Probiotic NovoFine NovoFine No NovoFine Plus 32G X Plus 32G X Plus 32G X 4 MM 4 MM 4 MM Novofine Novofine No Novofine Pen Needle Pen Needle Pen Needle 32G X 6 MM 32G X 6 MM 32G X 6 MM CoQ-10 CoQ-10 No CoQ-10 Metoprolol Metoprolol No 1{capsu QD Metoprolol Succinate Succinate le} Succinate 25 MG 25 MG 25 MG Lumigan Lumigan No Lumigan 0.01 % 0.01 % 0.01 % Tamsulosin Tamsulosin No Tamsulosin HCl 0.4 MG HCl 0.4 MG HCl 0.4 MG Rittman 3 Rittman 3 No Rittman 3 metFORMIN metFORMIN No metFORMIN HCl ER 500 HCl ER 500 HCl ER 500 MG MG MG Vitamin A Vitamin A No Vitamin A Victoza 18 Victoza 18 No QD Victoza 18 MG/3ML MG/3ML MG/3ML Fluticasone Fluticasone No Fluticason Propionate Propionate e 50 MCG/ACT 50 MCG/ACT Propionate 50 MCG/ACT Aspir-81 81 Aspir-81 81 No 1{table QD Aspir-81 MG MG t} 81 MG Atorvastati Atorvastati No 1{table QD Atorvastat n Calcium n Calcium t} in Calcium 10 MG 10 MG 10 MG Tylenol Tylenol No Tylenol Arthritis Arthritis Arthritis Pain Pain Pain Ketoconazol Ketoconazol No Ketoconazo e 2 % e 2 % le 2 % Probiotic Probiotic No Probiotic Tamsulosin Tamsulosin No Tamsulosin HCl 0.4 MG HCl 0.4 MG HCl 0.4 MG Tumersaid - Tumersaid - No Tumersaid - Fluzone Fluzone No Fluzone Montelukast Montelukast No Montelukas Sodium 10 Sodium 10 t Sodium MG MG 10 MG Atorvastati Atorvastati No Atorvastat n Calcium n Calcium in Calcium 10 MG 10 MG 10 MG Losartan Losartan No Losartan Potassium Potassium Potassium 100 MG 100 MG 100 MG Losartan Losartan No 1{table QD Losartan Potassium Potassium t} Potassium 100 MG 100 MG 100 MG Cosamin ASU Cosamin ASU No Cosamin for Joint for Joint ASU for Health Health Joint Health NovoFine NovoFine No NovoFine Plus 32G X Plus 32G X Plus 32G X 4 MM 4 MM 4 MM Victoza 18 Victoza 18 No Victoza 18 MG/3ML MG/3ML MG/3ML Vitamin C Vitamin C No Vitamin C Zinc - Zinc - No Zinc - Vitamin D3 Vitamin D3 No Vitamin D3 Vitamin E Vitamin E No Vitamin E metFORMIN metFORMIN No 2{table BID metFORMIN HCl ER 500 HCl ER 500 ts} HCl ER 500 MG MG MG Zinc - Zinc - No Zinc - Victoza 18 Victoza 18 No Victoza 18 MG/3ML MG/3ML MG/3ML Victoza 18 Victoza 18 No QD Victoza 18 MG/3ML MG/3ML MG/3ML Novofine Novofine No Novofine Pen Needle Pen Needle Pen Needle 32G X 6 MM 32G X 6 MM 32G X 6 MM Vitamin E Vitamin E No Vitamin E Cosamin ASU Cosamin ASU No Cosamin for Joint for Joint ASU for Health Health Joint Health Atorvastati Atorvastati No 1{table QD Atorvastat n Calcium n Calcium t} in Calcium 10 MG 10 MG 10 MG Fluzone Fluzone No Fluzone Tylenol Tylenol No Tylenol Arthritis Arthritis Arthritis Pain Pain Pain metFORMIN metFORMIN No 2{table BID metFORMIN HCl ER 500 HCl ER 500 ts} HCl ER 500 MG MG MG Montelukast Montelukast No Montelukas Sodium 10 Sodium 10 t Sodium MG MG 10 MG Tamsulosin Tamsulosin No Tamsulosin HCl 0.4 MG HCl 0.4 MG HCl 0.4 MG Fluticasone Fluticasone No Fluticason Propionate Propionate e 50 MCG/ACT 50 MCG/ACT Propionate 50 MCG/ACT Vitamin D3 Vitamin D3 No Vitamin D3 Metoprolol Metoprolol No 1{capsu QD Metoprolol Succinate Succinate le} Succinate 25 MG 25 MG 25 MG Aspir-81 81 Aspir-81 81 No 1{table QD Aspir-81 MG MG t} 81 MG Atorvastati Atorvastati No Atorvastat n Calcium n Calcium in Calcium 10 MG 10 MG 10 MG CoQ-10 CoQ-10 No CoQ-10 Lumigan Lumigan No Lumigan 0.01 % 0.01 % 0.01 % Ketoconazol Ketoconazol No Ketoconazo e 2 % e 2 % le 2 % Losartan Losartan No Losartan Potassium Potassium Potassium 100 MG 100 MG 100 MG Vitamin A Vitamin A No Vitamin A Rittman 3 Rittman 3 No Rittman 3 Vitamin C Vitamin C No Vitamin C Tumersaid - Tumersaid - No Tumersaid - Tamsulosin Tamsulosin No Tamsulosin HCl 0.4 MG HCl 0.4 MG HCl 0.4 MG Probiotic Probiotic No Probiotic Losartan Losartan No 1{table QD Losartan Potassium Potassium t} Potassium 100 MG 100 MG 100 MG NovoFine NovoFine No NovoFine Plus 32G X Plus 32G X Plus 32G X 4 MM 4 MM 4 MM Probiotic Probiotic No Probiotic Losartan Losartan No Losartan Potassium Potassium Potassium 100 MG 100 MG 100 MG Ketoconazol Ketoconazol No Ketoconazo e 2 % e 2 % le 2 % Albuterol Albuterol No 1{puff_ 6xD Albuterol Sulfate HFA Sulfate HFA as_need Sulfate 108 (90 108 (90 ed} HFA 108 Base) Base) (90 Base) MCG/ACT MCG/ACT MCG/ACT Fluzone Fluzone No Fluzone Montelukast Montelukast No Montelukas Sodium 10 Sodium 10 t Sodium MG MG 10 MG Cosamin ASU Cosamin ASU No Cosamin for Joint for Joint ASU for Health Health Joint Health Tumersaid - Tumersaid - No Tumersaid - Betamethaso Betamethaso No Betamethas ne ne one Dipropionat Dipropionat Dipropiona e 0.05 % e 0.05 % te 0.05 % Immunizations Ordered Immunization Filled Immunization Date Status Commen ts Source Name Name FluAD FluAD 2021-04-12 Completed [facility] - [facility] FluAD FluAD 2021-04-12 Completed [facility] 09:58:[facility] - [facility] FluAD FluAD 2021-04-12 Completed [facility] 09[facility]58:00 - [facility] FluAD FluAD 2021-04-12 Completed [facility] 09:58:[facility] - [facility] FluAD FluAD 2021-04-12 Completed [facility] 09:58:00 - [facility] FluAD FluAD 2021-04-12 Completed [facility] 09:58:00 - [facility] FluAD FluAD 2021-04-12 Completed [facility] 09:58:00 - [facility] FluAD FluAD 2021-04-12 Completed [facility] 09:58:00 - [facility] FluAD FluAD 2020-04-12 Completed [facility] 13:39:00 - [facility] FluAD FluAD 2020-04-12 Completed [facility] 13:39:00 - [facility] FluAD FluAD 2020-04-12 Completed [facility] 13:39:00 - [facility] FluAD FluAD 2020-04-12 Completed [facility] 13:39:[facility] - [facility] FluAD FluAD 2020-04-12 Completed [facility] 13:39:00 - [facility] FluAD FluAD 2020-04-12 Completed [facility] 13:39:00 - [facility] FluAD FluAD 2020-04-12 Completed [facility] 13:39:00 - [facility] FluAD FluAD 2020-04-12 Completed [facility] 13:39:00 - [facility] Vital Signs Vital Name Observation Time Observation Value Comments Source height 2022-07-14 09:30:00 71.5 [in_i] Common [facility] weight 2022-07-14 09:30:00 269.9 [lb_av] Common [facility] temperature 2022-07-14 09:30:00 97.0 [degF] [facility] bmi 2022-07-14 09:30:00 37.11 kg/m2 Common [facility] oximetry 2022-07-14 09:30:00 97 % [facility] respiratory rate 2022-07-14 09:30:00 17 /min Comm on [facility] blood pressure 2022-07-14 09:30:00 118 mm[Hg] Common [facility] - systolic [facility] blood pressure 2022-07-14 09:30:00 63 mm[Hg] Common [facility] - diastolic [facility] height 2022-01-11 08:30:00 71.5 [in_i] Common [facility] weight 2022-01-11 08:30:00 267 [lb_av] [facility] temperature 2022-01-11 08:30:00 97.6 [degF] [facility] bmi 2022-01-11 08:30:00 36.72 kg/m2 [facility] oximetry 2022-01-11 08:30:00 97 % [facility] respiratory rate 2022-01-11 08:30:00 16 /min Comm on [facility] blood pressure 2022-01-11 08:30:00 127 mm[Hg] [facility] systolic [facility] blood pressure 2022-01-11 08:30:00 70 mm[Hg] Common [facility] - diastolic [facility] height 2021-08-10 09:30:00 73 [in_i] Common [facility] weight 2021-08-10 09:30:00 264.5 [lb_av] [facility] temperature 2021-08-10 09:30:00 97.7 [degF] [facility] bmi 2021-08-10 09:30:00 34.89 kg/m2 [facility] oximetry 2021-08-10 09:30:00 97 % [facility] respiratory rate 2021-08-10 09:30:00 17 /min Comm on [facility] blood pressure 2021-08-10 09:30:00 138 mm[Hg] Common [facility] - systolic [facility] blood pressure 2021-08-10 09:30:00 76 mm[Hg] [facility] diastolic [facility] height 2021-05-11 09:50:00 73 [in_i] [facility] weight 2021-05-11 09:50:00 263.4 [lb_av] [facility] temperature 2021-05-11 09:50:00 96.7 [degF] [facility] bmi 2021-05-11 09:50:00 34.75 kg/m2 [facility] oximetry 2021-05-11 09:50:00 96 % [facility] respiratory rate 2021-05-11 09:50:00 16 /min Comm on [facility] blood pressure 2021-05-11 09:50:00 132 mm[Hg] [facility] systolic [facility] blood pressure 2021-05-11 09:50:00 72 mm[Hg] [facility] diastolic [facility] Procedures This patient has no known procedures. Plan of Care Planned Activity Planned Date Details Comments Source Future Scheduled 2022-12-02 [facility] Test 09:40:08 malignant neoplasm of colon (procedure) [code = 092032525] Future Scheduled 2022-12-02 [facility] 09:40:08 malignant neoplasm of colon (procedure) [code = 780442064] Future Scheduled 2022-12-02 Screening for [facility] Test 09:40:08 malignant neoplasm of colon (procedure) [code = 657047351] Future Scheduled 2022-12-02 COVID-19 VACCINE (#1) [facility] Test 09:40:08 [code = COVID-19 VACCINE (#1)] Future Scheduled 2022-12-02 Screening for [facility] Test 09:40:08 malignant neoplasm of colon (procedure) [code = 140833142] Future Scheduled 2022-12-02 [facility] Test 09:40:08 malignant neoplasm of colon (procedure) [code = 648930092] Future Scheduled 2022-12-02 SHINGLES VACCINES ([address] [facility] 09:40:08 of 2) [code = SHINGLES VACCINES (1 of 2)] Future Scheduled 2022-12-02 65[facility] 09:40:08 VACCINE (1 - PCV) [code = 65+ PNEUMOCOCCAL VACCINE (1 - PCV)] Future Scheduled 2022-12-02 [facility]ZA [facility]ACCINE [facility] 09:40:08 [code = INFLUENZA VACCINE] Future Scheduled 2022-05-27 65[facility] 08:41:10 VACCINE (1 - PCV) [code = 65+ PNEUMOCOCCAL VACCINE (1 - PCV)] Future Scheduled 2022-05-27 [facility] 08:41:10 [code = INFLUENZA VACCINE] Future Scheduled 2022-05-27 COVID-19 VACCINE (#1) [facility] Test 08:41:10 [code = COVID-19 VACCINE (#1)] Future Scheduled 2022-05-27 [facility]ONOSCOPY SCREENING [facility] Test 08:41:10 [code = COLONOSCOPY SCREENING] Future Scheduled 2022-05-27 SHINGLES VACCINES (1 Met [facility] Test 08:41:10 of 2) [code = SHINGLES VACCINES (1 of 2)] Future Scheduled 2022-05-27 65[facility] 08:41:10 VACCINE (1 - PCV) [code = 65+ PNEUMOCOCCAL VACCINE (1 - PCV)] Future Scheduled 2022-05-27 [facility]INE [facility] 08:41:10 [code = INFLUENZA VACCINE] Future Scheduled 2022-05-27 [facility]19 [facility]10 [code = COVID-19 VACCINE (#1)] Future Scheduled 2022-05-27 [facility] 08:[facility]:10 [code = COLONOSCOPY SCREENING] Future Scheduled 2022-05-27 SHINGLES VACCINES (1 Met [facility] Test 08:41:10 of 2) [code = SHINGLES VACCINES (1 of 2)] Future Scheduled 2022-05-27 65[facility] 08:41:10 VACCINE (1 - PCV) [code = 65+ PNEUMOCOCCAL VACCINE (1 - PCV)] Future Scheduled 2022-05-27 [facility] 08:41:10 [code = INFLUENZA VACCINE] Future Scheduled 2022-05-27 COVID-19 VACCINE (#1) [facility] Test 08:41:10 [code = COVID-19 VACCINE (#1)] Future Scheduled 2022-05-27 COLONOSCOPY SCREENING [facility] Test 08:41:10 [code = COLONOSCOPY SCREENING] Future Scheduled 2022-05-27 SHINGLES VACCINES (1 Met [facility] Test 08:41:10 of 2) [code = SHINGLES VACCINES (1 of 2)] Future Scheduled 2022-05-27 65+ [facility]AL [facility] 08:41:10 VACCINE (1 - PCV) [code = 65+ PNEUMOCOCCAL VACCINE (1 - PCV)] Future Scheduled 2022-05-27 [facility]FLUENZA VACCINE [facility] 08:41:10 [code = INFLUENZA VACCINE] Future Scheduled 2022-05-27 COVID-19 VACCINE (#1) [facility] Test 08:41:10 [code = COVID-19 VACCINE (#1)] Future Scheduled 2022-05-27 COLONOSCOPY SCREENING [facility] Test 08:41:10 [code = COLONOSCOPY SCREENING] Future Scheduled 2022-05-27 SHINGLES VACCINES (1 Met [facility] Test 08:41:10 of 2) [code = SHINGLES VACCINES (1 of 2)] Encounters Start End Encounter Admission Attending Care Care Encounter Source Date/Time Date/Time Type Type Clinicians Facility Department ID 2022-07-14 Outpatient Collins, [facility] [id number] Common 07:48:00 Dionte [id number] [facility] 2022-01-11 Outpatient Collins, [facility] [id number] Common 08:25:00 Dionte [facility] 2021-08-11 Outpatient Collins, [facility] [id number] Common 13:16:00 Dionte [facility] 2021-08-10 Outpatient Collins, [facility] [id number] Common 09:33:01 Dionte [facility] 2021-07-08 Outpatient Collins, [facility] [id number] Common 13:44:35 Dionte [id number] [facility] 2021-07-08 Outpatient Collins, [facility] [id number] Common 13:43:34 Dionte [id number] [facility] 2021-07-08 Outpatient Collins, [facility] [id number] Common 13:04:04 Dionte [id number] [facility] 2021-07-08 Outpatient Collins, [facility] [id number] Common 12:47:23 Dionte [id number] [facility] 2022-07-14 2022-07-14 OFFICE STLMLC ST[facility] [id number] Co mmon 00:00:00 00:00:00 VISIT Psychiatric PT - CHI LEVEL 4 [facility] 2022-06-29 2022-06-29 (TEL) STLMLC STLMLC [id number] Co mmon 00:00:00 00:00:00 [facility] 2022-03-23 2022-03-23 (TEL) STLMLC STL[facility]C [id number] Co mmon 00:00:00 00:00:00 [facility] 2022-01-11 2022-01-11 (ESTPT) STLMLC STL[facility]C [id number] Co mmon 00:00:00 00:00:00 Sina lopez [facility] 2021-08-10 2021-08-10 OFFICE STLMLC STLMLC [id number] Co mmon 00:00:00 00:00:00 VISIT Psychiatric PT - CHI LEVEL 4 [facility] 2021-07-08 2021-07-08 (TEL) STLMLC STLMLC [id number] Co mmon 00:00:00 00:00:00 [facility] 2021-05-11 2021-05-11 OFFICE STLMLC STLMLC [id number] Co mmon 00:00:00 00:00:00 VISIT Psychiatric PT - CHI LEVEL 4 [facility] 2021-02-17 2021-02-17 Outpatient [facility]C [facility] [id number] Common 00:00:00 00:00:00 [facility] 2021-02-17 2021-02-17 Outpatient [facility] ST[facility] [id number] Common 00:00:00 00:00:00 [facility] 2021-02-09 2021-02-09 Outpatient [facility]C ST[facility] [id number] Common 00:00:00 00:00:00 [facility] 2021-02-05 2021-02-05 Outpatient [facility]C ST[facility] [id number] Common 00:00:00 00:00:00 [facility] 2021-01-27 2021-01-27 Outpatient [facility]C ST[facility] [id number] Common 00:00:00 00:00:00 [facility] 2021-01-27 2021-01-27 Outpatient [facility]C [facility] [id number] Common 00:00:00 00:00:00 [facility] 2020-10-27 2020-10-27 Outpatient [facility]C ST[facility] [id number] Common 00:00:00 00:00:00 [facility] 2018-01-12 2018-01-12 [id number] Common 09:30:00 09:30:00 [facility] Results This patient has no known results.
--- NOTE | 2022-12-16 10:46 | RAD REPORT ---
EXAM DESCRIPTION: CT - Head Brain Wo Cont - 12/16/2022 10:35 am CLINICAL HISTORY: WEAKNESS Headache, drowsiness COMPARISON: No comparisons TECHNIQUE: All CT scans are performed using dose optimization technique as appropriate and may inclu de automated exposure control or mA/KV adjustment according to patient size. FINDINGS: No intracranial hemorrhage, hydrocephalus or extra-axial fluid collection.No areas of brai n edema or evidence of midline shift. The paranasal sinuses and mastoids are clear. The calvarium is intact. IMPRESSION: No acute intracranial abnormality.
--- NOTE | 2022-12-16 10:51 | RAD REPORT ---
EXAM DESCRIPTION: RAD - Chest Single View - 12/16/2022 10:45 am CLINICAL HISTORY: DYSPNEA Chest pain. COMPARISON: Chest Single View dated 07/06/2019; CHEST PA AND LAT 2 VIEW dated 07/21/2013; CHEST SINGLE VIEW dated 04/04/2012; CHEST PA AND LAT 2 VIEW dated 07/22/2008 FINDINGS: Portable technique limits examination quality. The lungs are underinflated but grossly clear. The heart is normal in size. No displaced fractures. IMPRESSION: No acute intrathoracic process suspected.
[2022-12-16 11:12] LABS: Absolute Lymphocytes (CBC) 0.4 K/uL (0.7-4.9); Hematocrit 44.1 % (39.6-49.0); Lymphocytes % 3.1 % (15.3-44.8); MCV 89.1 fL (80-100); MPV 8.6 fL (7.6-11.3); RBC Red Blood Cell Count 4.95 M/uL (4.33-5.43)
[2022-12-16 11:16] LABS: Protime INR 1.3
[2022-12-16 11:30] LABS: Albumin 3.5 g/dL (3.4-5.0); Bilirubin Total 0.9 mg/dL (0.2-1.0); Potassium 3.6 mEq/L (3.5-5.1); Protein, Total 7.2 g/dL (6.4-8.2); Troponin High Sensitivity 16.7 pg/mL (<58.9)
[2022-12-16] MEDS ORDERED: CEFTRIAXONE 1000 MG/VIAL ONE (12:00)
[2022-12-16] MEDS ORDERED: NA CHLORIDE 0.9% 50 ML ONE (12:00)
[2022-12-16] MEDS ORDERED: NA CHLORIDE 0.9% 3,000 ML ONE (12:00)
[2022-12-16 12:13] LABS: Specific Gravity > 1.030 (1.005-1.030); Urine Bacteria 20-50 /HPF (<20); Urine Bilirubin NEGATIVE (Negative); Urine Blood 2+ (Negative); Urine Clarity Extremely Turbid (Clear); Urine Color Yellow (Yellow); Urine Glucose 4+ (Negative); Urine Protein 2+ (Negative); Urine RBC >50 /HPF (None Seen); Urine Urobilinogen 1+ (Normal); Urine pH 5.5 (5.0-7.0)
[2022-12-16 12:14] LABS: Urine Mucus 4+ /HPF (None Seen)
--- NOTE | 2022-12-16 12:33 | RAD REPORT ---
EXAM DESCRIPTION: CT - Chest Abd Pelvis Wo Con - 12/16/2022 12:17 pm CLINICAL HISTORY: Chest and abdomen pain. DYSPNEA COMPARISON: Head Brain Wo Cont dated 12/16/2022 TECHNIQUE: A limited noncontrast study was performed. All CT scans are performed using dose optimization technique as appropriate and may include automated exposure control or mA/KV adjustment according to patient size. FINDINGS: Mild linear atelectasis is seen in both lung bases posteriorly.No pleural or pericardial e ffusion.No intrathoracic adenopathy. The liver, spleen, pancreas, adrenal glands and right kidney are within normal limits. Cholecystectom y clips. 3 mm stone is seen in the proximal left ureter resulting in mild left hydronephrosis. No bowel obstruction, free air, free fluid or abscess. Moderate stool is retained in the rectosigmoid colon. Diverticulosis coli is present without diverticulitis. Mildly enlarged prostate gland. No pat hologic lymphadenopathy in the abdomen or pelvis. Moderate lumbar degenerative changes. IMPRESSION: 3 mm stone proximal left ureter resulting in mild left hydronephrosis.
[2022-12-16] MEDS ORDERED: ACETAMINOPHEN 500 MG TAB ONE (14:36)
--- NOTE | 2022-12-16 14:42 | ER ---
Nurse's Notes [facility] Name: Wesley Medina Age: 72 yrs Sex: Male : 1950 Arrival Date: 12/16/2022 Time: 10:04 Bed 20 Private MD: Dionte Collins Diagnosis: UTI/ Urinary tract infection, site not specified;Severe sepsis with septic shock;Calculus of ureter;Acute kidney failure, unspecified Presentation: 12/16 10:50 Chief complaint: Patient states: burning and frequency with urination, weakness, eh3 chills, started Tuesday night. Coronavirus screen: Vaccine status: Patient reports receiving the 2nd dose of the covid vaccine. Ebola Screen: No symptoms or risks identified at this time. Initial Sepsis Screen: Does the patient meet any 2 criteria? RR > 20 per min. HR > 90 bpm. Does the patient have a suspected source of infection? Yes: Dysuria/Frequency/Urgency/UTI. Risk Assessment: Do you want to hurt yourself or someone else? Patient reports no desire to harm self or others. Onset of symptoms was December 16, 2022. 10:50 Method Of Arrival: Ambulatory 3 10:50 Acuity: MILLA 3 eh3 Triage Assessment: 11:15 General: Appears in no apparent distress. uncomfortable, Behavior is calm, cooperative, eh3 appropriate for age. Pain: Complains of pain in pelvis. EENT: Ear canal clear on right ear and left ear. Neuro: Level of Consciousness is awake, alert, obeys commands, Oriented to person, place, time, situation. Cardiovascular: Capillary refill < 3 seconds Patient's skin is warm and dry. Respiratory: Airway is patent Respiratory effort is even, unlabored, Respiratory pattern is regular, symmetrical. GI: Abdomen is round non-distended. : Reports burning with urination, urinary frequency. Derm: Skin is diaphoretic, Skin is flushed. Musculoskeletal: Circulation, motion, and sensation intact. Historical: - Home Meds: 11:15 aspirin 81 mg Oral TbEC 1 tab once daily [Active]; atorvastatin 10 mg Oral tab 1 tab eh3 once daily [Active]; Jardiance 10 mg Oral tab 1 tab once daily [Active]; losartan 100 mg Oral tab 1 tab once daily [Active]; Lumigan 0.01 % ophthalmic drop daily [Active]; metformin 1,000 mg Oral TG24 2 tabs once daily [Active]; novofine [Active]; Victoza 3-Jose 0.6 mg/0.1 mL (18 mg/3 mL) subcutaneous pnij [Active]; metoprolol tartrate 25 mg Oral tablet 1 tab daily [Active]; - PMHx: 11:15 Diabetes - NIDDM; Hyperlipidemia; Hypertension; eh3 - Immunization history:: Adult Immunizations up to date. - Social history:: Smoking status: unknown. Screenin:18 [facility] ED Fall Risk Assessment (Adult) Score/Fall Risk Level 0 - 2 = Low Risk. Abuse eh3 screen: Denies threats or abuse. Denies injuries from another. Nutritional screening: No deficits noted. Tuberculosis screening: No symptoms or risk factors identified. Assessment: :18 Reassessment: No changes from previously documented assessment. See triage assessment. eh3 12:00 Reassessment: Patient appears in no apparent distress at this time. Patient and/or eh3 family updated on plan of care and expected duration. Pain level reassessed. Patient is alert, oriented x 3, equal unlabored respirations, skin warm/dry/pink. 13:00 Reassessment: Patient appears in no apparent distress at this time. Patient and/or eh3 family updated on plan of care and expected duration. Pain level reassessed. Patient is alert, oriented x 3, equal unlabored respirations, skin warm/dry/pink. 14:00 Reassessment: Patient appears in no apparent distress at this time. Patient and/or eh3 family updated on plan of care and expected duration. Pain level reassessed. Patient is alert, oriented x 3, equal unlabored respirations, skin warm/dry/pink. 14:19 Reassessment: Arthur Acevedo Declined transfer due to capacity. ss 15:00 Reassessment: Patient appears in no apparent distress at this time. Patient and/or eh3 family updated on plan of care and expected duration. Pain level reassessed. Pt A\T\O x 4, respirations labored and with expiratory wheezes, skin warm/dry/pink. 16:00 Reassessment: Patient appears in no apparent distress at this time. Patient and/or eh3 family updated on plan of care and expected duration. Pain level reassessed. Pt A\T\O x 4, respirations labored and with expiratory wheezes, skin warm/dry/pink. 17:00 Reassessment: Patient appears in no apparent distress at this time. Patient and/or 3 family updated on plan of care and expected duration. Pain level reassessed. Patient is alert, oriented x 3, equal unlabored respirations, skin warm/dry/pink. 12/17 04:52 General: WILLIE Goss at [facility] of patient's + gram cocci in chains from pf1 2 blood culture bottles.. Vital Signs: 12/16 10:55 BP 106 / 57; Pulse 111; Resp 18; Temp 99.6(O); Pulse Ox 88% on R/A; Weight 113.4 kg; 3 Height 6 ft. 1 in. ; 11:00 BP 112 / 61; Pulse 112; Resp 20; Pulse Ox 95% on 3 lpm NC; eh3 12:00 BP 91 / 79; Pulse 105; Resp 22; Pulse Ox 94% on 3 lpm NC; eh3 13:00 BP 133 / 81; Pulse 98; Resp 20; Pulse Ox 100% on 3 lpm NC; eh3 14:00 BP 130 / 77; Pulse 103; Resp 22; Pulse Ox 99% on R/A; eh3 14:30 Temp 100.8(O); eh3 15:00 BP 114 / 75; Pulse 98; Resp 29; Pulse Ox 100% on R/A; eh3 16:00 BP 129 / 66; Pulse 106; Resp 24; Pulse Ox 98% on R/A; eh3 17:00 BP 172 / 83; Pulse 88; Resp 26; Temp 102.2; Pulse Ox 98% on R/A; eh3 10:55 Body Mass Index 32.98 (113.40 kg, 185.42 cm) [facility] ED Course: 10:05 Patient arrived in ED. rg4 10:05 Dionte Collins DO is Private Physician. rg4 10:11 Annem[facility] Brannon [facility]-C [facility]. kb 10:11 Tyler Alcantar MD is Attending Physician. kb 10:37 CT Head Brain wo Cont In Process Unspecified. EDMS 10:47 Chest Single View XRAY In Process Unspecified. EDMS 10:47 Kasie Laughlin, WILLIE is Primary Nurse. eh3 10:52 First set of blood cultures drawn by me. aw1 10:59 Inserted saline lock: 20 gauge in right antecubital area, using aseptic technique. aw1 10:59 Initial lab(s) drawn, by me, sent to lab. aw1 11:15 Triage completed. eh3 11:15 Arm band placed on. eh3 11:18 Patient has correct armband on for positive identification. Bed in low position. Call eh3 light in reach. Side rails up X2. Adult w/ patient. Client placed on continuous cardiac and pulse oximetry monitoring. NIBP monitoring applied. Door closed. Noise minimized. 11:22 Second set of blood cultures drawn by me. aw1 11:57 Urine collected: clean catch specimen, cloudy. aw1 12:19 CT Chest Abdomen Pelvis W/O Contrast In Process Unspecified. EDMS 15:02 Notified Nurse Practitioner and/or Physician Electronic Controls Repairer Supervisor of a critical lab result(s), eh3 Lactate 2.8. 15:13 Transfer center notified of new lactate results and updated vitals. em1 17:31 No provider procedures requiring assistance completed. Patient transferred, IV remains eh3 in place. Administered Medications: 11:44 CANCELLED (Other Intervention Used): NS 0.9% IV 1000 ml IV at 1000 ml once kb 11:55 Drug: NS 0.9% IV (30 ml/kg) 30 ml/kg Route: IV; Rate: bolus; Site: right antecubital; eh3 17:19 Follow up: IV Status: Completed infusion; IV Intake: 3000ml eh3 11:55 Drug: Rocephin IV 1 grams Route: IV; Rate: calculated rate; Site: right antecubital; eh3 12:05 Follow up: Response: No adverse reaction; IV Status: Completed infusion; IV Intake: [id number] 14:31 Drug: Acetaminophen PO 1000 mg Route: PO; eh3 16:15 Follow up: Response: Temperature is decreased eh3 16:45 Drug: Ampicillin IVPB 1 grams Route: IVPB; Infused Over: 30 mins; Site: right 3 antecubital; 17:29 Follow up: Response: No adverse reaction; IV Status: Completed infusion; IV Intake: eh3 100ml 17:18 Drug: Ibuprofen PO 600 mg Route: PO; 3 17:29 Follow up: Response: Medication administered at discharge. eh3 Medication: 14:19 VIS not applicable for this client. ss Intake: 12:05 IV: 50ml; Total: 50ml. eh3 17:19 IV: 3000ml; Total: 3050ml. eh3 17:29 IV: 100ml; Total: 3150ml. eh3 Outcome: 14:42 ER care complete, transfer ordered by MD. bowling 17:29 Patient left the ED. eh3 17:31 Transferred by ground EMS to [facility], Transfer form completed. eh3 17:31 Condition: stable 17:31 Instructed on the need for transfer. Signatures: Dispatcher [employer] EDMS Annemarie Brannon, ADMINISTRATIVE MEDICAL DIRECTOR-C ADMINISTRATIVE MEDICAL DIRECTOR-Jarred Mack em1 Yany Palmer, RN RN Ingrid Aranda 4 Kasie Laughlin RN RN 3 Valerie Goldstein RN RN pf1 David, Genevieve aw1 Corrections: (The following items were deleted from the chart) 11:49 10:55 BP 106 / 57; Pulse 111bpm; Resp 18bpm; Pulse Ox 88% RA; eh3 eh3 16:19 15:00 Reassessment: Patient appears in no apparent distress at this time. Patient eh3 and/or family updated on plan of care and expected duration. Pain level reassessed. Patient is alert, oriented x 3, equal unlabored respirations, skin warm/dry/pink. eh3
--- NOTE | 2022-12-16 14:42 | EDPHYS ---
Physician Documentation [facility] Name: Wesley Medina Age: 72 yrs Sex: Male : 1950 Arrival Date: 12/16/2022 Time: 10:04 Bed 20 Private MD: Dionte Collins ED Physician Tyler Alcantar HPI: 12/16 11:04 This 72 yrs old Male presents to ER via Unassigned with complaints of Urinary Problem, kb Ear Pain. 13:52 The patient presents with generalized weakness, feeling off balance. Onset: The kb symptoms/episode began/occurred yesterday. Context: occurred while the patient was just prior to the episode the patient experienced no apparent symptoms. Modifying factors: The symptoms are alleviated by nothing, the symptoms are aggravated by nothing. 14:43 Associated signs and symptoms: Pertinent positives: shortness of breath, dysuria, kb frequency, ear pain. Severity of symptoms: At their worst the symptoms were moderate in the emergency department the symptoms are unchanged. Patient's baseline: Neuro: alert and fully oriented, Motor: no deficits, Ambulation: walks without assistance, Speech: normal. The patient has not experienced similar symptoms in the past. The patient has not recently seen a physician. Historical: - Home Meds: 11:15 aspirin 81 mg Oral TbEC 1 tab once daily [Active]; atorvastatin 10 mg Oral tab 1 tab eh3 once daily [Active]; Jardiance 10 mg Oral tab 1 tab once daily [Active]; losartan 100 mg Oral tab 1 tab once daily [Active]; Lumigan 0.01 % ophthalmic drop daily [Active]; metformin 1,000 mg Oral TG24 2 tabs once daily [Active]; novofine [Active]; Victoza 3-Ojse 0.6 mg/0.1 mL (18 mg/3 mL) subcutaneous pnij [Active]; metoprolol tartrate 25 mg Oral tablet 1 tab daily [Active]; - PMHx: 11:15 Diabetes - NIDDM; Hyperlipidemia; Hypertension; eh3 - Immunization history:: Adult Immunizations up to date. - Social history:: Smoking status: unknown. ROS: 13:50 Cardiovascular: Negative for chest pain, palpitations, and edema. kb 13:50 Constitutional: Positive for fever, malaise. 13:50 Respiratory: Positive for dyspnea on exertion, Negative for cough. 13:50 Abdomen/GI: Positive for nausea, Negative for abdominal pain, vomiting, diarrhea. 13:50 : Positive for urinary symptoms, urinary frequency, burning with urination. 13:50 Neuro: Positive for weakness. 13:50 All other systems are negative. Exam: 11:12 Constitutional: This is a well developed, well nourished patient who is awake, alert, kb and in no acute distress. Head/Face: Normocephalic, atraumatic. ENT: Moist Mucous membranes Cardiovascular: Regular rate and rhythm with a normal S1 and S2. No gallops, murmurs, or rubs. No pulse deficits. Respiratory: Respirations even and unlabored. No increased work of breathing. Talking in full sentences Abdomen/GI: Soft, non-tender. No distention Skin: Warm, dry with normal turgor. Normal color. MS/ Extremity: Pulses equal, no cyanosis. Neurovascular intact. Full, normal range of motion. Neuro: Awake and alert, GCS 15, oriented to person, place, time, and situation. Moves all extremities. Normal gait. 11:12 ECG was reviewed by the Attending Physician. Vital Signs: 10:55 BP 106 / 57; Pulse 111; Resp 18; Temp 99.6(O); Pulse Ox 88% on R/A; Weight 113.4 kg; 3 Height 6 ft. 1 in. ; 11:00 BP 112 / 61; Pulse 112; Resp 20; Pulse Ox 95% on 3 lpm NC; eh3 12:00 BP 91 / 79; Pulse 105; Resp 22; Pulse Ox 94% on 3 lpm NC; 3 13:00 BP 133 / 81; Pulse 98; Resp 20; Pulse Ox 100% on 3 lpm NC; eh3 14:00 BP 130 / 77; Pulse 103; Resp 22; Pulse Ox 99% on R/A; eh3 14:30 Temp 100.8(O); eh3 15:00 BP 114 / 75; Pulse 98; Resp 29; Pulse Ox 100% on R/A; eh3 16:00 BP 129 / 66; Pulse 106; Resp 24; Pulse Ox 98% on R/A; eh3 17:00 BP 172 / 83; Pulse 88; Resp 26; Temp 102.2; Pulse Ox 98% on R/A; eh3 10:55 Body Mass Index 32.98 (113.40 kg, 185.42 cm) eh3 MDM: 10:13 Patient medically screened. kb 13:36 Data reviewed: vital signs, nurses notes. Counseling: I had a detailed discussion with kb the patient and/or guardian regarding: the historical points, exam findings, and any diagnostic results supporting the discharge/admit diagnosis, lab results, radiology results, the need to transfer to another facility, for higher level of care, [facility] does not immediately have the required specialist. ED course: Sepsis reevaluation compete. 13:49 ED course: Pt requested transfer to a hospital in [place] instead of the medical center. Initiated transfer with [facility] at 1340. No beds available. . 13:55 ED course: Transfer initiated to [facility]. Declined due to capacity. kb 14:40 Consideration of Admission/Observation Escalation of care including kb admission/observation considered. pt will be transferred due to lack of urologist at this facility. Management of patient was discussed with the following: Dr Lundy, small business sales representative at [facility], requests repeat lactate and callback for possible floor admission. 14:42 Differential diagnosis: cardiac arrhythmia, generalized weakness, sepsis, uti, otitis kb media. 16:12 ED course: Dr Geiger, hospitalist at [facility], accepts pt for admission pending urologist agreement for consult. 16:13 ED course: Dr Garibay, urologist at [facility], accepts pt for consult. Would like pt kb to receive IV ampicillin. 16:19 ED course: Dr Bishop, ER physician at [facility], accepts pt for transfer. 12/16 10:23 Order name: Blood Culture Adult (2) 12/16 10:23 Order name: CBC with Diff; Complete Time: 11:13 kb 12/16 10:23 Order name: CMP; Complete Time: 11:32 kb 12/16 10:23 Order name: Lactate w/ 2H reflex if indic.; Complete Time: 11:44 kb 12/16 10:23 Order name: Protime (+inr); Complete Time: 11:19 kb 12/16 10:23 Order name: Ptt, Activated; Complete Time: 11:19 kb 12/16 10:23 Order name: Urinalysis w/ reflexes; Complete Time: 12:15 kb 12/16 10:23 Order name: Troponin High Sensitivity; Complete Time: 11:32 kb 12/16 12:17 Order name: Urine Culture EDMS 12/16 15:03 Order name: Lactate Sepsis 2 HR Follow-up; Complete Time: 15:10 EDMS 12/16 10:23 Order name: Chest Single View XRAY; Complete Time: 10:52 kb 12/16 10:23 Order name: CT Head Brain wo Cont; Complete Time: 10:49 kb 12/16 11:57 Order name: CT Chest Abdomen Pelvis W/O Contrast; Complete Time: 12:39 kb 12/16 10:23 Order name: EKG; Complete Time: 10:24 kb 12/16 10:23 Order name: Accucheck; Complete Time: 11:11 kb 12/16 10:23 Order name: Cardiac monitoring; Complete Time: 11:11 kb 12/16 10:23 Order name: EKG - Nurse/Tech; Complete Time: 11:11 kb 12/16 10:23 Order name: IV Saline Lock - Large Bore; Complete Time: 10:58 kb 12/16 10:23 Order name: Labs collected and sent; Complete Time: 10:58 kb 12/16 10:23 Order name: O2 Per Protocol; Complete Time: 11:11 kb 12/16 10:23 Order name: O2 Sat Monitoring; Complete Time: 11:11 kb 12/16 10:23 Order name: Vital Signs; Complete Time: 11:11 kb EC:12 Rate is 114 beats/min. Rhythm is regular. QRS [place] is Normal. NE interval is normal at kb 172 msec. QRS interval is normal at 118 msec. QT interval is normal at 449 msec. Administered Medications: 11:44 CANCELLED (Other Intervention Used): NS 0.9% IV 1000 ml IV at 1000 ml once kb 11:55 Drug: NS 0.9% IV (30 ml/kg) 30 ml/kg Route: IV; Rate: bolus; Site: right antecubital; 3 17:19 Follow up: IV Status: Completed infusion; IV Intake: 3000ml eh3 11:55 Drug: Rocephin IV 1 grams Route: IV; Rate: calculated rate; Site: right antecubital; 3 12:05 Follow up: Response: No adverse reaction; IV Status: Completed infusion; IV Intake: [id number] 14:31 Drug: Acetaminophen PO 1000 mg Route: PO; 3 16:15 Follow up: Response: Temperature is decreased [facility] 16:45 Drug: Ampicillin IVPB 1 grams Route: IVPB; Infused Over: 30 mins; Site: right 3 antecubital; 17:29 Follow up: Response: No adverse reaction; IV Status: Completed infusion; IV Intake: eh3 100ml 17:18 Drug: Ibuprofen PO 600 mg Route: PO; 3 17:29 Follow up: Response: Medication administered at discharge. 3 Disposition: 20:37 Co-signature as Attending Physician, Tyler Alcantar MD I reviewed the patient's care rn provided by the Advanced Practice Provider and agree with the diagnosis and treatment plan. Disposition Summary: 12/16/22 14:42 Transfer Ordered Transfer Location: [facility] Reason: Higher level of care kb Condition: Stable kb Problem: new kb Symptoms: are unchanged kb Accepting Physician: Dr Bishop(12/16/22 17:29) 3 Diagnosis - UTI/ Urinary tract infection, site not specified kb - Severe sepsis with septic shock kb - Calculus of ureter kb - Acute kidney failure, unspecified kb Forms: - Medication Reconciliation Form kb - SBAR form kb Signatures: Dispatcher [employer] EDMS Annemarie Brannon, OIL PROGRAM COMPLIANCE SPECIALIST-C OIL PROGRAM COMPLIANCE SPECIALIST-Ckb Tyler Alcantar MD MD rn Hall, Erin, RN RN 3 Corrections: (The following items were deleted from the chart) 11:44 11:34 NS 0.9% IV 1000 ml IV at 1000 ml once ordered. [facility] 16:20 14:40 Management of patient was discussed with the following: Dr Lundy, small business sales representative at [facility], requests repeat lactate and callback for possible floor admission. 16:20 16:12 ED course: Dr Geiger, hospitalist at [facility], accepts pt for admission kb pending urologist agreement for consult. kb 16:20 16:13 ED course: Dr Garibay, urologist at [facility], accepts pt for consult. [facility] 16:52 16:13 ED course: Dr Garibay, urologist at [facility], accepts pt for consult. kb kb 16:52 14:42 Dr bowling 17:29 16:52 Dr Bishop [facility]
[2022-12-16] MEDS ORDERED: AMPICILLIN SODIUM 500 MG VIAL ONE (16:40)
[2022-12-16] MEDS ORDERED: NA CHLORIDE 0.9% 100 ML ONE (16:40)
[2022-12-16] MEDS ORDERED: IBUPROFEN 200 MG TAB PO ONE (17:26)
[2022-12-16 18:14] VITALS: TEMP 100.8
[2022-12-16 18:18] VITALS: BP 129/66; O2SAT 98
--- NOTE | 2022-12-18 16:24 | EKG ---
Test Date: 2022-12-16 Test Time: 11:00:56 Pre Assembly Wirer: MELANIE MEASUREMENT RESULTS: Intervals: Rate: 114 IA: 172 QRSD: 118 QT: 326 QTc: 449 [place]: P: 47 IA: 172 QRS: -56 T: 38 INTERPRETIVE STATEMENTS: Sinus tachycardia Right bundle branch block Left anterior fascicular block Bifascicular block Abnormal ECG Compared to ECG 07/06/2019 22:58:36 Right bundle-branch block now present Left anterior fascicular block now present Bifascicular block now present Incomplete right bundle-branch block no longer present ST (T wave) deviation no longer present Possible ischemia no longer present Electronically Signed On 12-18-22 16:20:50 CDT by Raulito [place]
== END 2022-12-16 17:29 | disposition short-term general hospital (02) ==
LOC: ER 10:04
DX: N39.0 Urinary tract infection, site not specified (principal); A41.9 Sepsis, unspecified organism; R65.21 Severe sepsis with septic shock; N20.1 Calculus of ureter; N17.9 Acute kidney failure, unspecified; E11.9 Type 2 diabetes mellitus without complications; Z79.4 Long term (current) use of insulin; I10 Essential (primary) hypertension; Z79.82 Long term (current) use of aspirin
CPT/HCPCS: 96365; 93005; 87040 ×2; 87088; 85025; 81001; 87086; 36415; 87205 ×2; 85610; 83605 ×2; 85730; 87077 ×2; 87186 ×2; 84484; 80053; 70450; 71250; 74176; 71045; 96375; 99285; 96366; J0290; J7030; J0696

== ENCOUNTER 2023-01-29 08:18 | Inpatient (IN) | payer OTHER ==
--- OUTSIDE RECORDS SUMMARY | 2023-01-29 08:25 | XMS REPORT | Continuity of Care Document ---
:1950 Author Organization [facility] t Address [address] [place] [address] [address] [place] [address] Care Team Providers Name Role Phone Aime VILLALOBOS, Seth Cuello Primary Care Physician MAKI BELTRAN Attending Clinician Unavailable CHRISTIAN GARIBAY Attending Clinician Unavailable Dionte Collins Attending Clinician Unavailable DEION DUTTA Attending Clinician Unavailable Nalini VILLALOBOS, Deion Garcia Attending Clinician Charles VILLALOBOS, Ester Colon Attending Clinician [phone] Alexi Ruiz MD Attending Clinician Terence Lundy MD Attending Clinician Maki Beltran MD Attending Clinician ALEXI RUIZ Attending Clinician Unavailable Christian Garibay MD Attending Clinician Unavailreji James MD, Christian Pratt Attending Clinician [phone] Sandro Turner MD Attending Clinician TERENCE LUNDY Admitting Clinician Unavailable CHRISTIAN GARIBAY Admitting Clinician Unavailable Seth Salomon Admitting Clinician Unavailable DEION DUTTA Admitting Clinician Unavailable Payers Payer Name Policy Type Policy Number Effective Date Expiration Date S mamadou AETNA MEDICARE [id number] 2022 HMO POS PPO 00:00:00 AETNA MEDICARE C1 [id number] Common Spi rit - [facility] Problems Condition Condition Condition Status Onset Resolution Last Treating Co mments Source Name Details Category Date Date Treatment Clinician Date Left Left Disease Active [facility] [place] Sepsis Sepsis Disease Recurre [facility] 12-16 [facility]: Medical 00 [place] Ureterolit Ureterolit Disease Active [facility] hiasis hiasis 12-16 [facility] 00:00: Medical 00 [place] [id number] Body mass Problem Com mon index [facility] [BMI] - CHI 36.0-36.9, [facility] [id number] Morbid Problem Commo n 9104 (severe) Spirit obesity - [facility]I due to [facility] Hearing Hearing Problem Common loss loss [facility] [id number] Right Problem Common sided Spirit sciatica - [facility] [id number] Pain in Problem Common right hip [facility] [id number] Type 2 Problem Common diabetes Spirit mellitus - [facility]I with [facility] long-term current use of insulin [id number] BPH loc w Problem Com mon urin Spirit obs/LUTS - [facility] [id number] Dependence Problem Co mmon on other Spirit enabling - CHI machines [facility] [id number] Allergic Problem Commo n rhinitis, [facility]specif[facility] d trigger [id number] Absolute Problem Commo n glaucoma, Spirit unspecifie - [facility] d [facility] [id number] Mixed Problem Common hyperlipid Spirit emia - [facility] [id number] Essential Problem Comm on (primary) Spirit hypertensi - CHI on [facility] [id number] Obstructiv Problem Com mon e sleep Spirit apnea - [facility]I (adult) (pediatric [facility] ) [facility] [id number] Hypercalce Problem Com mon james Spirit - [facility] No known No known Disease Metho di active active problems problems Hospit a l Allergies, Adverse Reactions, Alerts Allergy Allergy Status Severity Reaction(s) Onset Inactive Treating Comm ents Source Name Type Date Date Clinician NO KNOWN Allergy Active [facility] Family History Family Member Diagnosis Comments Start Date Stop Date Source Natural father Cancer [facility] Natural mother Cancer [facility] Social History Social Habit Start Date Stop Date Quantity Comments Source Gender identity 2021-10-31 Identifies as male M ethodist 11:46:39 gender (finding) Hospital Sexual orientation 2021-10-31 Heterosexual Meth odist 11:46:39 (finding) Hospital History of Tobacco Common Spirit - Use [facility] Exposure to 2022-12-26 2023-01-[address] [facility] SARS-CoV-2 (event) 00:00:00 08:52:00 Medica l Center Alcohol intake 2023-01-05 2023-01-05 Current drinker of [facility] 00:[facility] 00:00:00 alcohol (finding) Medical Center History SDOH 2022-12-17 2022-12-[address] [facility] Transport Med 00:00:00 00:00:[address] Tobacco use and 2022-12-16 2022-12-16 Smokeless tobacco [facility] exposure 00:00:00 00:00:00 non-user Medical Center Alcohol Comment 2022-12-16 2022-12-[address] [facility] 00:00:00 00:00:00 Medical Center History of Social 2019-01-28 2019-01-[address] function 00:00:00 00:00:00 Hospital Sex Assigned At [address] [facility] 00[facility]00[facility]00 00:00:00 Medical Center Smoking Status Start Date Stop Date Source Never smoked tobacco [facility] Medications Ordered Filled Start Stop Current Ordering Indication Dosage Frequency Signature Comments Components Source Medication Medication Date Date Medication? Clinician (SIG) Name Name aspirin 81 Yes 81mg QD Take 1 [facility]I S t MG EC 7-26 tablet (81 [facility] tablet 12:33: mg total) Medica l 51 by mouth Center daily. atorvastati Yes 10mg Take [address] n (LIPITOR) 7-26 tablet (10 Guillermina kes 10 MG 12:33: mg total) Medical tablet 51 by mouth Center Daily (1800). bimatoprost Yes 1[drp] QD [address] (LUMIGAN) 01-05 nightly. Lukes 0.03 % 12:33: Medical ophthalmic 51 Center drops liraglutide Yes QD Inject [facility] (VICTOZA) 01-05 subcutaneo Luke s 0.6 mg/0.1 12:33: usly Medical mL (18 mg/3 51 daily. Center mL) syringe amoxicillin Yes 1{tbl} Q.5D Take [address] -clavulanat 01-05 tablet by Lulu es e 12:33: mouth 2 Medical (AUGMENTIN) 51 (two) Center 875-125 mg times per tablet daily. rivaroxaban Yes Take by [facility] (XARELTO) 01-05 mouth [facility]ukes 10 mg 12:33: daily with Medica l tablet 51 dinner. Center losartan 0 2022- No 100mg QD Take 1 CHI S t (COZAAR) 12-20 tablet Lukes 100 MG 14:32: 00:00 (100 mg Medical tablet 02 :00 total) by Center mouth daily. tamsulosin 2022- No .4mg Take [address] (FLOMAX) 12-20 capsule [facility]ukes 0.4 mg Cap 14:32: 00:00 (0.4 mg Med ical 24 hr 02 :00 total) by Center capsule mouth Daily (1800). metoprolol 0 2023- Yes 12.5mg QD Take 0.[address] succinate 12-20 tablets Lukes (TOPROL-XL) 00:00: 23:59 (12.5 mg M edical 25 MG 24 hr 00 :00 total) by [facility] ter tablet mouth daily. tamsulosin 0 Yes .4mg Take 1 CHI S t (FLOMAX) 12-19 capsule Lukes 0.4 mg Cap 00:00: (0.4 mg Medi vandana 24 hr 00 total) by Center capsule mouth Daily (1800). polyethylen 0 2022- No 17g Take [address] e glycol 12-19 by mouth Lukes (GLYCOLAX) 00:00: 23:59 daily as Me dical 17 gram 00 :00 needed Center packet (Constipat ion) for up to 15 days. linezolid 2022- No 600mg Q.5D Take [address] (ZYVOX) 600 12-19 tablet Lukes mg tablet 00:00: 23:59 (600 mg Medi vandana 00 :00 total) by Center mouth 2 (two) times daily for 14 days. HYDROcodone 2022-2022- No 1{tbl} Take [address] -acetaminop 12-19 tablet by Guillermina valdez (NORCO 00:00: 23:59 mouth Medic al 5-325) 00 :00 every 6 Center 5-325 mg (six) per tablet hours as needed for up to 5 days. Max Daily Amount: 4 tablets amoxicillin 2022- No 1{tbl} Q.[id number] Take [address] -clavulanat 12-19 [id number] tablet by Amadeo e 00:00: 00:00 3D mouth 3 Medical (AUGMENTIN) 00 :00 (three) Cente r 500-125 mg times per tablet daily for 14 days. ciprofloxac 2022- No 500mg Q.5D Take [address] in HCl 12-19 tablet Lukes (CIPRO) 500 00:00: 00:00 (500 mg Me dical MG tablet 00 :00 total) by Cente r mouth 2 (two) times daily for 14 days. metFORMIN Yes 1000mg Q.5D Take [address] (GLUCOPHAGE 6-01 tablets Lukes -XR) 500 MG 00:00: (1,000 mg M edical 24 hr 00 total) by Center tablet mouth 2 (two) times daily. metoprolol 2022- No 25mg QD Take [address] succinate 11-10 tablet (25 Lulu es (TOPROL-XL) 00:00: 00:00 mg total) Medical 25 MG 24 hr 00 :00 by mouth Cent er tablet daily. No known 2019- No No known Metho di medications 10-[address] 14:57: s [facility]osp[facility] l No known 2019- No No known Metho di medications 10-[address] 14:57: s [facility] l No known 2019-0 No No known Metho di medications 10-[address] 14:57: s [facility] l No known No No known Metho di medications 10-[address] 14:57: s [facility]osp[facility] l MethylPREDN MethylPREDN 2017- 2018- No Hardik as Common ISolone ISolone 01-12 Teresa directed Sp sandy 00:00: 00:00 - CHI 00 :00 [facility] MetFORMIN MetFORMIN Yes Hardik TAKE 2 C ommon HCl ER HCl ER Teresa TABLETS BY Spi rit MOUTH - CHI TWICE A St DAY [facility] PredniSONE PredniSONE Yes Hardik TAKE 1 Common Teresa TABLET BY Spirit MOUTH - CHI EVERY DAY [facility] Aspir-81 Aspir-81 Yes Hardik 1 tablet C ommon Teresa Spirit - [facility] Victoza Victoza Yes Hardik INJECT Commo n Teresa UNDER THE Spirit SKIN 1.8MG - CHI EVERY DAY [facility] Pseudoeph-B Pseudoeph-B Yes Hardik TAKE 2 Common romphen-DM romphen-DM Teresa TEASPOONSF Spirit UL BY - CHI MOUTH [facility] THREE [facility] TIMES A Medical DAY Center NEEDED FOR 10 DAYS Fluzone Fluzone Yes Hardik TO BE Common High-Dose High-Dose Teresa ADMINISTER Spirit ED BY - CHI PHARMACIST [facility] IMMUNIZATI Medical ON Center NovoFine NovoFine Yes Hardik USE ONCE C ommon Plus Plus Teresa DAILY Spirit - [facility] Ketoconazol Ketoconazol Yes Hardik USE Common e [...] Spir it MOUTH - CHI EVERY DAY [facility] Losartan Losartan Yes Hardik TAKE 1 Com mon Potassium Potassium Teresa TABLET BY Spirit MOUTH - CHI EVERY DAY St (NEEDS [facility] BLOOD WORK Medical AND OFFICE Center VISIT BEFORE NEXT REFILL) Atorvastati Atorvastati Yes Hardik TAKE 1 Common n Calcium n Calcium Teresa TABLET BY Spirit MOUTH - CHI EVERY DAY St (NEED Lukes BLOOD WORK Medical AND OFFICE Center VISIT BEFORE NEXT REFILL) Lumomar Lumomar Yes Hardik PUT 1 DROP C saundra Teresa INTO BOTH Spirit EYES AT - CHI BEDTIME [facility] Tylenol Tylenol No Tylenol Arthritis Arthritis Arthritis Pain Pain Pain Super C Super C No Super C Complex Complex Complex Aspir-81 81 Aspir-81 81 No 1{table QD Aspir-81 MG MG t} 81 MG [place] 3 [place] 3 No [place] 3 Vitamin C Vitamin C No Vitamin [...] Super C No Complex Complex Aspir-81 81 - 81 No 1{table QD MG MG t} [place] 3 [place] 3 No Vitamin C Vitamin C No [...] C No Super C Complex Complex Complex [place] 3 [place] 3 No [place] 3 CoQ-10 CoQ-10 No CoQ-10 Losartan Losartan [...] Cosamin for Joint for Joint ASU for [employer] [facility] Tamsulosin Tamsulosin No Tamsulosin HCl [...] Cosamin for Joint for Joint ASU for [facility] Atorvastati Atorvastati No 1{table [...] Vitamin A Vitamin A No Vitamin A [place] 3 [place] 3 No [place] 3 Vitamin C Vitamin C No Vitamin [...] Vitamin A Vitamin A No Vitamin A [place] 3 [place] 3 No [place] 3 Vitamin C Vitamin C No Vitamin [...] Calcium 10 MG 10 MG 10 MG [place] 3 [place] 3 No [place] 3 Novofine Novofine No Novofine Pen Needle [...] MG HCl 0.4 MG HCl 0.4 MG [place] 3 [place] 3 No [place] 3 metFORMIN metFORMIN No metFORMIN HCl ER [...] Vitamin A Vitamin A No Vitamin A [place] 3 [place] 3 No [place] 3 Vitamin C Vitamin C No Vitamin [...] FluAD 2021-04-12 Completed [facility] 09:58:00 [facility] FluAD FluAD 2021-04-12 Completed [facility] 09:58:00 - [facility] FluAD FluAD 2021-04-12 Completed [facility] 09:58:00 - [facility] FluAD FluAD 2021-04-12 Completed [facility] 09:58:00 - [facility] FluAD FluAD 2021-04-12 Completed [facility] 09:58:00 - [facility] FluAD FluAD 2021-04-12 Completed [facility] 09:58:00 - [facility] FluAD FluAD 2021-04-12 Completed [facility] 09:58:00 - [facility] FluAD FluAD 2021-04-12 Completed [facility] 09:58:00 - [facility] FluAD FluAD 2020-04-12 Completed [facility] 13:39:00 - [facility] FluAD FluAD 2020-04-12 Completed [facility] 13:39:00 - [facility] FluAD FluAD 2020-04-12 Completed [facility] 13:39:00 - [facility] FluAD FluAD 2020-04-12 Completed [facility] 13:39:00 - [facility] FluAD FluAD 2020-04-12 Completed [facility] 13:39:00 - [facility] FluAD FluAD 2020-04-12 Completed [facility] 13:39:00 - [facility] FluAD FluAD 2020-04-12 Completed [facility] 13:39:00 - [facility] FluAD FluAD 2020-04-12 Completed [facility] 13:39:00 - [facility] Vital Signs Vital Name Observation Time Observation Value Comments Source HEIGHT 2023-01-05 09:04:00 185.4 cm WEIGHT 2023-01-05 09:04:00 113.116 kg HEIGHT 2022-12-29 15:58:00 185.4 cm WEIGHT 2022-12-29 15:58:00 111.585 kg HEIGHT 2023-01-05 09:04:00 185.4 cm WEIGHT 2023-01-05 09:04:00 113.116 kg HEIGHT 2022-12-29 15:58:00 185.4 cm WEIGHT 2022-12-29 15:58:00 111.585 kg HEIGHT 2023-01-05 09:04:00 185.4 cm WEIGHT 2023-01-05 09:04:00 113.116 kg HEIGHT 2022-12-29 15:58:00 185.4 cm WEIGHT 2022-12-29 15:58:00 111.585 kg HEIGHT 2022-12-16 18:40:00 185.4 cm WEIGHT 2022-12-16 18:40:00 113.399 kg HEIGHT 2022-12-16 18:40:00 185.4 cm WEIGHT 2022-12-16 18:40:00 113.399 kg HEIGHT 2022-12-16 18:40:00 185.4 cm WEIGHT 2022-12-16 18:40:00 113.399 kg height 2022-07-14 09:30:00 71.5 [in_i] [facility] weight 2022-07-14 09:30:00 269.9 [lb_av] [facility] temperature 2022-07-14 09:30:00 97.0 [degF] [facility] bmi 2022-07-14 09:30:00 37.11 kg/m2 [facility] oximetry 2022-07-14 09:30:00 97 % [facility] respiratory rate 2022-07-14 09:30:00 17 /min Comm on [facility] blood pressure 2022-07-14 09:30:00 118 mm[Hg] Common [facility] - systolic [facility] blood pressure 2022-07-14 09:30:00 63 mm[Hg] Common [facility] - diastolic [facility] height 2022-01-11 08:30:00 71.5 [in_i] [facility] weight 2022-01-11 08:30:00 267 [lb_av] [facility] temperature 2022-01-11 08:30:00 97.6 [degF] Common [facility] bmi 2022-01-11 08:30:00 36.72 kg/m2 Common [facility] oximetry 2022-01-11 08:30:00 97 % Common [facility] respiratory rate 2022-01-11 08:30:00 16 /min Comm on [facility] blood pressure 2022-01-11 08:30:00 127 mm[Hg] Common [facility] - systolic [facility] blood pressure 2022-01-11 08:30:00 70 mm[Hg] Common [facility] - diastolic [facility] height 2021-08-10 09:30:00 73 [in_i] [facility] weight 2021-08-10 09:30:00 264.5 [lb_av] [facility] temperature 2021-08-10 09:30:00 97.7 [degF] [facility] bmi 2021-08-10 09:30:00 34.89 kg/m2 [facility] oximetry 2021-08-10 09:30:00 97 % Common [facility] respiratory rate 2021-08-10 09:30:00 17 /min Comm on [facility] blood pressure 2021-08-10 09:30:00 138 mm[Hg] Common [facility] - systolic [facility] blood pressure 2021-08-10 09:30:00 76 mm[Hg] Common [facility] - diastolic [facility] height 2021-05-11 09:50:00 73 [in_i] Common [facility] weight 2021-05-11 09:50:00 263.4 [lb_av] [facility] temperature 2021-05-11 09:50:00 96.7 [degF] [facility] bmi 2021-05-11 09:50:00 34.75 kg/m2 Common [facility] oximetry 2021-05-11 09:50:00 96 % Common S pirit - [facility] respiratory rate 2021-05-11 09:50:00 16 /min Comm on Spirit - [facility] blood pressure 2021-05-11 09:50:00 132 mm[Hg] Common [facility] - systolic [facility] blood pressure 2021-05-11 09:50:00 72 mm[Hg] Common [facility] - diastolic [facility] Systolic blood 2023-01-05 11:43:00 119 mm[Hg] [facility] Diastolic blood 2023-01-05 11:43:00 63 mm[Hg] [facility] S [facility] Heart rate 2023-01-05 11:43:00 64 /min [facility] Body temperature 2023-01-05 11:43:00 36.72 Edyta [facility] Respiratory rate 2023-01-05 11:43:00 16 /min [facility] Oxygen saturation in 2023-01-05 11:43:00 95 /min [facility] Arterial blood by Medical Ce nter Pulse oximetry Body height 2023-01-05 09:04:00 185.4 cm [facility] Body weight 2023-01-05 09:04:00 113.116 kg [facility] BMI 2023-01-05 09:04:00 32.90 kg/m2 [facility] Procedures Procedure Date / Time Performing Clinician Source Performed [place] FLUORO NON-SPECIFIC UP 2023-01-05 10:42:00 Deion Dutta [facility] TO 1 HOUR [facility] STONE ANALYSIS 2023-01-05 10:14:00 Deion Dutta [facility] CYSTOURETEROSCOPY, WITH 2023-01-05 09:32:00 Deion Dutta [facility] LASER LITHOTRIPSY [facility] CYSTOSCOPY, WITH URETERAL 2023-01-05 09:32:00 Deion Dutta [facility] STENT INSERTION [facility] POCT-GLUCOSE METER 2023-01-05 09:15:00 Deion Dutta [facility] POCT-GLUCOSE METER 2022-12-19 11:45:00 Joselito [facility] POCT-GLUCOSE METER 2022-12-19 06:07:00 Joselito [facility] CBC (HEMOGRAM ONLY) 2022-12-19 04:44:00 Joselito [facility] BASIC METABOLIC PANEL 2022-12-19 04:44:00 Joselito [facility] POCT-GLUCOSE METER 2022-12-18 21:24:00 Joselito [facility] VANCOMYCIN LEVEL, TROUGH 2022-12-18 20:31:00 Zulay Coleman [facility] POCT-GLUCOSE METER 2022-12-18 16:12:00 Joselito [facility] ECHO W CONTRAST & DOPPLER 2022-12-18 15:51:00 Joselito [facility] POCT-GLUCOSE METER 2022-12-18 13:21:00 Joselito [facility] ECG 12-LEAD 2022-12-18 12:24:29 Joselito [facility] POCT-GLUCOSE METER 2022-12-18 06:14:00 Joselito [facility] CBC (HEMOGRAM ONLY) 2022-12-18 04:40:00 Joselito [facility] COMPREHENSIVE METABOLIC 2022-12-18 04:40:[address] [facility] POCT-GLUCOSE METER 2022-12-17 20:55:00 Joselito [facility] POCT-GLUCOSE METER 2022-12-17 16:06:00 Joselito [facility] POCT-GLUCOSE METER 2022-12-17 12:12:00 Joselito [facility] POCT-GLUCOSE METER 2022-12-17 06:19:00 Terence Lundy [facility] BASIC METABOLIC PANEL 2022-12-17 04:18:00 Maria Antonia, [facility] MAGNESIUM 2022-12-17 04:18:00 Maria Antonia [facility] PHOSPHORUS 2022-12-17 04:18:00 Maria Antonia [facility] CBC W/PLT COUNT & AUTO 2022-12-17 04:18:00 Maria Antonia [facility] CBC W/PLT COUNT & AUTO 2022-12-17 04:18:00 Maria Antonia [facility] URINE CULTURE 2022-12-17 04:00:00 Alexi Ruiz [facility] URINALYSIS W/ REFLEX 2022-12-17 04:00:00 Alexi Ruiz [facility] URINE CULTURE [facility] BLOOD CULTURE 2022-12-16 23:40:00 [facility] POCT-GLUCOSE METER 2022-12-16 21:49:00 [facility] [place] FLUORO NON-SPECIFIC UP 2022-12-16 21:24:00 hCristian Garibay [facility] TO 1 HOUR [facility] SURGICALLY OBTAINED 2022-12-16 21:13:34 [place] [facility] C[facility] + GRAM STAIN [facility] ter FUNGUS CULTURE + SMEAR 2022-12-16 21:13:34 [place] ANAEROBIC CULTURE 2022-12-16 21:13:34 [facility] WITH URETERAL 2022-12-16 20:42:00 Christian Garibay [facility] STENT INSERTION [facility] PROCEDURE W/ C-ARM 2022-12-16 20:42:00 [place] [facility] CBC W/PLT COUNT & AUTO 2022-12-16 19:58:[address] [facility] CBC W/PLT COUNT & AUTO 2022-12-16 19:58:[address] [facility] (CELLAVISION MANUAL DIFF) 2022-12-16 19:58:00 Alexi Ruiz [facility] BASIC METABOLIC PANEL 2022-12-16 19:14:00 Alexi Ruiz [facility] EKG-SCANNED 2022-12-16 00:00:00 ProviderSujey [facility] Plan of Care Planned Activity Planned Date Details Comments Source Future Scheduled 2024-01-06 Tobacco Cessation [facility] Test 00:00:00 [facility] Medical Cente r Screening (12+) [code = Tobacco Cessation Counseling and Screening (12+)] Future Scheduled 2023-02-11 Influenza Vaccine (#1) [facility] 00:00:00 [code = Influenza Medical Ce nter Vaccine (#1)] Future Scheduled 2023-01-20 [facility] 18:12:06 malignant neoplasm of colon (procedure) [code = 904381354] Future Scheduled 2023-01-20 [facility] 18:12:06 malignant neoplasm of colon (procedure) [code = 448570932] Future Scheduled 2023-01-20 [facility] 18:12:06 malignant neoplasm of colon (procedure) [code = 570649232] Future Scheduled 2023-01-20 COVID-19 [facility]ACCINE [facility] 18:12:06 [code = COVID-19 VACCINE (#1)] Future Scheduled 2023-01-20 [facility] 18:12:06 malignant neoplasm of colon (procedure) [code = 799667029] Future Scheduled 2023-01-20 [facility] 18:12:06 malignant neoplasm of colon (procedure) [code = 569658081] Future Scheduled 2023-01-20 SHINGLES VACCINES (1 [facility] Test 18:12:06 of 2) [code = SHINGLES VACCINES (1 of 2)] Future Scheduled 2023-01-20 65+ [facility]UMOCOCCAL [facility] Test 18:12:06 VACCINE (1 - PCV) [code = 65+ PNEUMOCOCCAL VACCINE (1 - PCV)] Future Scheduled 2023-01-20 INFLUENZA VACCINE [facility] Test 18:12:06 [code = INFLUENZA VACCINE] Future Scheduled 2022-12-02 [facility] 09:40:08 malignant neoplasm of colon (procedure) [code = 152800775] Future Scheduled 2022-12-02 [facility] 09:40:08 malignant neoplasm of colon (procedure) [code = 631405745] Future Scheduled 2022-12-02 [facility] 09:40:08 malignant neoplasm of colon (procedure) [code = 390062761] Future Scheduled 2022-12-02 COVID-19 VACCINE (#1) [facility] Test 09:40:08 [code = COVID-19 VACCINE (#1)] Future Scheduled 2022-12-02 [facility] 09:40:08 malignant neoplasm of colon (procedure) [code = 580953399] Future Scheduled 2022-12-02 [facility] 09:40:08 malignant neoplasm of colon (procedure) [code = 392339482] Future Scheduled 2022-12-02 SHINGLES VACCINES (1 Met [facility] Test 09:40:08 of 2) [code = SHINGLES VACCINES (1 of 2)] Future Scheduled 2022-12-02 65+ [facility]OCOCCAL [facility] Test 09:40:08 VACCINE (1 - PCV) [code = 65+ PNEUMOCOCCAL VACCINE (1 - PCV)] Future Scheduled 2022-12-02 INFLUENZA VACCINE [facility] Test 09:40:08 [code = INFLUENZA VACCINE] Future Scheduled 2022-06-[address] [facility] Test 00:00:00 (12+) [code = Medical Center DEPRESSION SCREENING (12+)] Future Scheduled 2022-06-13 FALLS RISK SCREENING [facility] Test 00:00:00 [code = FALLS RISK Medical C enter SCREENING] Future Scheduled 2022-06-13 Medicare IPPE (WELCOME [facility] 00:00:00 TO MEDICARE) [code = Medical Center Medicare IPPE (WELCOME TO MEDICARE)] Future Scheduled 2022-05-27 COLONOSCOPY SCREENING [facility] Test 08:41:10 [code = COLONOSCOPY SCREENING] Future Scheduled 2022-05-27 SHINGLES VACCINES (1 [facility] Test 08:41:10 of 2) [code = [...] VACCINE (#1)] Future Scheduled 2022-05-27 [facility] 08:[facility]10 [code = COLONOSCOPY SCREENING] Future Scheduled 2022-05-27 [facility]IN[facility]:10 of 2) [code = SHINGLES VACCINES (1 of 2)] Future Scheduled 2022-05-27 65+ [facility]AL [facility] 08:[facility]:10 VACCINE (1 - PCV) [code = 65+ PNEUMOCOCCAL VACCINE (1 - PCV)] Future Scheduled 2022-05-27 [facility]ZA [facility] 08:41:10 [code = INFLUENZA VACCINE] Future Scheduled 2022-05-27 COVID-19 VACCINE (#1) [facility] 08:[facility]:10 [code = COVID-19 VACCINE (#1)] Future Scheduled 2022-05-27 [facility] 08:41:10 [code = COLONOSCOPY SCREENING] Future Scheduled 2022-05-27 [facility]INGLES [facility]IN[facility]10 of 2) [code = [...] Future Scheduled 2022-05-27 [facility]LES [facility]INES (1 [facility] 08:[facility]:10 of 2) [code = SHINGLES VACCINES (1 of 2)] Future Scheduled 2022-05-27 65+ [facility]OCOCCAL [facility] 08:41:10 VACCINE (1 - PCV) [code = 65+ PNEUMOCOCCAL VACCINE (1 - PCV)] Future Scheduled 2022-05-27 [facility]ENZA [facility]ACCINE [facility] 08:41:10 [code = INFLUENZA VACCINE] Future Scheduled 2022-05-27 COVID-19 VACCINE (#1) [facility] Test 08:41:10 [code = COVID-19 VACCINE (#1)] Future Scheduled 2014 PNEUMOCOCCAL 65+ YRS [facility] Test 00:00:00 (1 - PCV) [code = Medical Ce nter PNEUMOCOCCAL 65+ YRS (1 - PCV)] Future Scheduled 1999 SHINGLES VACCINES ([address] [facility] Test 00:00:00 of 2) [code = SHINGLES Medic al Center VACCINES (1 of 2)] Future Scheduled 1968-01-30 DTAP/TDAP/TD VACCINES [facility] 00:00:00 (1 - Tdap) [code = Medical C enter DTAP/TDAP/TD VACCINES (1 - Tdap)] Future Scheduled 1967 HEPATITIS C [facility] 00:00:00 [code = HEPATITIS C Medical Center SCREENING] Future Scheduled 1949 COVID-19 VACCINE (#1) [facility] 00:00:00 [code = COVID-[address] VACCINE (#1)] Future Scheduled [address] [facility] 00:00:00 (combo) [code = CT Medical C enter Colonography (combo)] Future Scheduled [address] [facility] 00:[facility]:00 malignant neoplasm of Medica l Center colon (procedure) [code = 739026438] Future Scheduled [address] [facility] 00:00:00 malignant [facility] colon (procedure) [code = 940476994] Future Scheduled [address] [facility] 00:[facility]:00 [facility] colon (procedure) [code = 284561623] Future Scheduled [address] [facility] 00:00:00 malignant ne[facility] Center colon (procedure) [code = 178353035] Future Scheduled 1950 Sigmoidoscopy [facility]code = [facility]oscopy] Medical Cente r Encounters Start End Encounter Admission Attending Care Care Encounter Source Date/Time Date/Time Type Type Clinicians Facility Department ID 2022-12-18 Inpatient ER [facility]O [facility] [id number] SLE 13:59:23 MAKI 2022-12-17 Inpatient ER [place], [facility] [id number] SLE 07:34:44 CHRISTOPHER 2022-12-16 Inpatient ER [place], [facility] [id number] SLE 20:59:25 CHRISTOPHER 2022-12-16 Inpatient ER [place] [facility] Surgery [id number] SLE 19:20:13 [place] 2022-12-16 Emergency ER [place] [facility] Urology [id number] [facility] 13:48:53 [facility] 2022-07-14 [facility] [id number] Common 07:48:00 Dionte [id number] [facility] 2022-01-11 [facility] [place] [id number] Common 08:25:00 Dionte [id number] [facility] 2021-08-11 [facility] [place] [id number] Common 13:16:00 Dionte [facility] 2021-08-10 [facility] [place] [id number] Common 09:33:01 Dionte [facility] 2021-07-08 [facility] [place] [id number] Common 13:44:35 Dionte [id number] [facility] 2021-07-08 [facility] [place] [id number] Common 13:43:34 Dionte [id number] [facility] 2021-07-08 [facility] [place] [id number] Common 13:04:04 Dionte [id number] [facility] 2021-07-08 [facility] [place] [id number] Common 12:47:23 Dionte [id number] [facility] 2023-01-052023-01-05 Outpatient EL NALINI, [facility] Surgery [id number] [facility] 08:26:00 12:30:00 [place] 2023-01-05 2023-01-05 [facility] Nalini, [facility] [id number] 08:26:00 12:30:00 Encounter Deion [facility] 2023-01-05 2023-01-05 Surgery Nalini, [facility] [id number] 09:52:00 11:22:00 Deion [facility] 2023-01-05 2023-01-05 Anesthesia Charles [facility] [id number] 09:33:00 10:46:00 Event Estergracy Childs [facility] 2023-01-05 2023-01-05 Outpatient NAYAN DUTTA [facility] [id number] [facility] 00:00:00 00:00:00 [place] 2023-01-05 2023-01-05 Travel [facility] [id number] [facility] 00:[facility]00 00:00:00 [facility] 2022-12-29 2022-12-29 Outpatient [facility] [id number] SLE 00:00:00 00:00:00 2022-12-29 2022-12-29 Travel [facility] [id number] [facility] 00:[facility]:00 00:00:00 [facility] 2022-12-16 2022-12-19 Inpatient ER [facility] Surgery [id number] SLE 18:44:00 14:32:00 [facility] 2022-12-16 2022-12-19 [facility] Alexi Ruiz [facility] [id number] 18:44:00 14:32:00 Encounter Terence Lundy [facility] 2022-12-16 2022-12-16 Surgery [place] [facility] [id number] 20:15:00 21:56:00 [facility] 2022-12-16 2022-12-16 Anesthesia Christian James [facility] [id number] [facility] 20:42:00 21:34:54 Event Sandro Turner Alfredo [facility] 2022-12-16 2022-12-16 Hospital [place], [facility] [id number] 20:15:00 20:15:00 [facility] 2022-12-16 2022-12-16 Travel [facility] [id number] [facility] 00:00:00 00:00:00 [facility] 2022-07-14 2022-07-14 OFFICE STLMLC STLMLC [id number] Co mmon 00:00:00 00:00:00 VISIT [facility] PT - CHI LEVEL 4 [facility] 2022-06-29 2022-06-29 (TEL) STLMLC STLMLC [id number] Co mmon 00:00:00 00:00:00 [facility] 2022-03-23 2022-03-23 (TEL) STLMLC STLMLC [id number] Co mmon 00:00:00 00:00:00 [facility] 2022-01-11 2022-01-11 (ESTPT) STLMLC STLMLC [id number] Co mmon 00:00:00 00:00:00 Sina lopez Patient [facility] 2021-08-10 2021-08-10 OFFICE STLMLC STLMLC [id number] Co mmon 00:00:00 00:00:00 VISIT [facility] PT - CHI LEVEL 4 [facility] 2021-07-08 2021-07-08 (TEL) STLMLC STLMLC [id number] Co mmon 00:00:00 00:00:00 [facility] 2021-05-11 2021-05-11 OFFICE STLMLC STLMLC [id number] Co mmon 00:00:00 00:00:00 VISIT [facility] PT - CHI LEVEL 4 [facility] 2021-02-17 2021-02-17 Outpatient STLMLC STLMLC [id number] Common 00:00:00 00:00:00 [facility] 2021-02-17 2021-02-17 Outpatient STLMLC STLMLC [id number] Common 00:00:00 00:00:00 [facility] 2021-02-09 2021-02-09 Outpatient STLMLC STLMLC [id number] Common 00:00:00 00:00:00 [facility] 2021-02-05 2021-02-05 Outpatient STLMLC STLMLC [id number] Common 00:00:00 00:00:00 [facility] 2021-01-27 2021-01-27 Outpatient STLMLC STLMLC [id number] Common 00:00:00 00:00:00 [facility] 2021-01-27 2021-01-27 Outpatient STLMLC STLMLC [id number] Common 00:00:00 00:00:00 [facility] 2020-10-27 2020-10-27 Outpatient STLMLC STLMLC [id number] Common 00:00:00 00:00:00 [facility] 2018-01-12 2018-01-12 [facility] [id number] Common 09:30:00 09:30:00 [facility] Results Test Description Test Time Test Comments Results Result Comments Source Fungus culture + smear 2023-01-18 16:01:41 Test Item Value Reference Range Interpretation Comme nts Result (test code = 6463-4) No fungus isolated in 28 days Fungus Smear (test code = 1406) No fungi seen [facility] [id number] 16:01:41 Test Item Value Reference Range Interpretation Comments CULTURE (BEAKER) (test No fungus isolated in code = 1095) 28 days FUNGUS SMEAR (BEAKER) No fungi seen (test code = 1406) STONE [id number] 18:45:31 Test Item Value Reference Range Interpretation Comments SPECIMEN NOT GIVEN SOURCE([facility]) (test code = 5142008) COMPONENT 1 See Below Uric Acid Dihyd rate ([facility]) (test 80% Calcium Ox alate code = 0713319) Monohydrate (Whewellite) 20 % This test was develo ped and its analyti vandana performance characteristics have been determined by [facility]. It has not been cl eared or approved by theA. This as say has been valida neva pursuant to the CLIA regulations and is used for clinic al purposes. COMPONENT 2 DNR ([facility]) (test code = 2498) Stone Weight 0.016 g (test code = 2654) BECCA (test code = Performing Lab BECCA) *DEONDRE [facility], [id number] [place] [id number] Kathy Henson MD [facility] HospitalFL FLUORO NON-SPECIFIC UP TO 1 [id number] 10:51:43[facility] : 1950 Sex: MThisis a non- reportable study with no Radiologist dictation. Please refer to your PACS to review images,or Doc Flowsheets for documentation on studies without images.POC- Glucose [id number] 09:28:17 Test Item Value Reference Range Interpretation Comments POC-Glucose Meter (test 157 mg/dL 70-110 H : TE STED AT [facility] code = 1538) 6720 [facility], 770 30: Mechanical Specialist/Techni jose l ID = [id number] for MartínezDeja a Lab Interpretation (test Abnormal code = 89869-9) [facility]SE [id number] 09:28:17 Test Item Value Reference Range Interpretation Comments POC-GLUCOSE METER 157 mg/dL 70-110 H : TESTED A T [facility] 6720 (BEAKER) (test code = PERLA Nelson [facility], 1538) [address]: Mechanical Specialist/Techni jose l ID = [id number] for Ca Tiffany saenz Anaerobic [id number] 01:15:09 Test Item Value Reference Range Interpretation Comments Result (test code = No anaerobes isolated 6463-4) [facility] [id number] 01:15:09 Test Item Value Reference Range Interpretation Comments CULTURE (BEAKER) (test No anaerobes isolated code = 1095) BLOOD [id number] 00:00:21 Test Item Value Reference Range Interpretation Comments CULTURE (BEAKER) (test No growth in 5 days code = 1095) BLOOD [id number] 00:00:21 Test Item Value Reference Range Interpretation Comments CULTURE (BEAKER) (test No growth in 5 days code = 1095) SURGICALLY OBTAINED CULTURE + GRAM [id number] 12:49:56 Test Item Value Reference Range Interpretation Comments CULTURE (BEAKER) ENTEROCOCCUS A 4+ Enteroco ccus (test code = 1095) FAECALIS faecalis Ampicillin (test S code = 26) Linezolid (test code S = 40) Nitrofurantoin (test S code = 23) Tetracycline (test S code = 2) Vancomycin (test S code = 13) GRAM STAIN RESULT <1+ WBCs (BEAKER) (test code = 1123) GRAM STAIN RESULT <1+ gram positive (BEAKER) (test code cocci in chains = 799803) and pairs POCT-GLUCOSE [id number] 11:57:06 Test Item Value Reference Range Interpretation Comments POC-GLUCOSE METER 243 mg/dL 70-110 H : TESTED A T [facility] 6720 (BEAKER) (test code = [facility], 1538) [address]: Mechanical Specialist/Techni jose l ID = [id number] for Al Mili schuler POCT-GLUCOSE [id number] 06:19:41 Test Item Value Reference Range Interpretation Comments POC-GLUCOSE METER 191 mg/dL 70-110 H : TESTED A T [facility] 6720 (BEAKER) (test code = [facility] [email or web address] [facility], 1538) [address]: Mechanical Specialist/Techni jose l ID = [id number] for CHATOARTINIMA BASIC METABOLIC [id number] 05:28:31 Test Item Value Reference Range Interpretation Comments SODIUM (BEAKER) 140 meq/L 136-145 (test code = 381) POTASSIUM 3.7 meq/L 3.5-5.1 (BEAKER) (test code = 379) CHLORIDE (BEAKER) 108 meq/L 98-107 H (test code = 382) CO2 (BEAKER) 22 meq/L 22-29 (test code = 355) BLOOD UREA 17 mg/dL 7-21 NITROGEN (BEAKER) (test code = 354) CREATININE 1.00 mg/dL 0.57-1.25 (BEAKER) (test code = 358) GLUCOSE RANDOM 172 mg/dL 70-105 H (BEAKER) (test code = 652) CALCIUM (BEAKER) 9.0 mg/dL 8.4-10.2 (test code = 697) EGFR (BEAKER) 80 Interpretatio n of eGFR (test code = mL/min/1.73 values Stage De scription 1092) sq m Result G1 Caitie l or high >=90 G2 Mildly decreased 60-89 G3a Mildl y to moderately 45-5 9 G3b Moderately to s everely 30-44 G4 Severl y decreased 15-29 G5 Kidney failure <15Reported eGF R is based on the CKD-EPI 2020 equation that d oes not use a race coefficientEsti mated GFR is not as accur ate as Creatinine Rosalie pierson in predicting glom erular filtration rate . Estimated GFR is not appl icable for dialysis patien ts Mechanical Specialist ID - [id number] (HEMOGRAM ONLY)2022-12-19 05:09:06 Test Item Value Reference Range Interpretation Comments WHITE BLOOD CELL COUNT (BEAKER) 7.3 K/ L 3.5-10.5 (test code = 775) RED BLOOD CELL COUNT (BEAKER) 4.48 M/ L 4.63-6.08 L (test code = 761) HEMOGLOBIN (BEAKER) (test code = 13.1 GM/DL 13.7-17.5 L 410) HEMATOCRIT (BEAKER) (test code = 39.2 % 40.1-51.0 L 411) MEAN CORPUSCULAR VOLUME (BEAKER) 88 fL 79-92 (test code = 753) MEAN CORPUSCULAR HEMOGLOBIN 29.2 pg 25.7-32.2 (BEAKER) (test code = 751) MEAN CORPUSCULAR HEMOGLOBIN CONC 33.4 GM/DL 32.3-36.5 (BEAKER) (test code = 752) RED CELL DISTRIBUTION WIDTH 12.8 % 11.6-14.4 (BEAKER) (test code = 412) PLATELET COUNT (BEAKER) (test 153 K/CU MM 150-450 code = 756) MEAN PLATELET VOLUME (BEAKER) 10.6 fL 9.4-12.4 (test code = 754) NUCLEATED RED BLOOD CELLS 0 /100 WBC 0-0 (BEAKER) (test code = 413) POCT-GLUCOSE [id number] 21:46:00 Test Item Value Reference Range Interpretation Comments POC-GLUCOSE METER 209 mg/dL 70-110 H : TESTED A T [facility] 6720 (AKER) (test code = [facility], 1538) [address]: Mechanical Specialist/Techni jose l ID = [id number] for NIMA MELENDEZ VANCOMYCIN LEVEL, [id number] 21:13:06 Test Item Value Reference Range Interpretation Comments VANCOMYCIN TROUGH (AKER) (test 5.3 ug/mL 10.0-20.0 L code = 522) Mechanical Specialist ID - DONELL BPOCT-GLUCOSE [id number] 16:23:36 Test Item Value Reference Range Interpretation Comments POC-GLUCOSE METER 219 mg/dL 70-110 H : TESTED A T [facility] 6720 (BEAKER) (test code = [facility], 153) 34495: Mechanical Specialist/Techni jose l ID = [id number] for Norah Rhodes POCT-GLUCOSE [id number] 13:32:27 Test Item Value Reference Range Interpretation Comments POC-GLUCOSE METER 229 mg/dL 70-110 H : TESTED A T [facility] 6720 (BEAKER) (test code = [facility], 153) 08398: Mechanical Specialist/Techni jose l ID = [id number] for Davidson schuler Mili Urine [id number] 13:11:18 Test Item Value Reference Range Interpretation Comments Result (test code = <10,000 col/mL skin jose 6463-4) BECCA (test code = If your patient does not BECCA) have signs or symptoms of UTI, it is recommended NOT to treat, with the exception of and prior to urologic procedures. [facility] [id number] 06:27:01 Test Item Value Reference Range Interpretation Comments POC-GLUCOSE METER 184 mg/dL 70-110 H : TESTED A T [facility] 6720 (BEAKER) (test code = [place], 1538) 19[address]: Mechanical Specialist/Techni jose l ID = [id number] for NIMA MELENDEZ COMPREHENSIVE METABOLIC [id number] 06:20:20 Test Item Value Reference Range Interpretation Comments TOTAL PROTEIN 5.7 gm/dL 6.0-8.3 L (BEAKER) (test code = 770) ALBUMIN (BEAKER) 3.1 g/dL 3.5-5.0 L (test code = 1145) ALKALINE 44 U/L 40-150 PHOSPHATASE (BEAKER) (test code = 346) BILIRUBIN TOTAL 0.4 mg/dL 0.2-1.2 (BEAKER) (test code = 377) SODIUM (BEAKER) 137 meq/L 136-145 (test code = 381) POTASSIUM (BEAKER) 3.9 meq/L 3.5-5.1 (test code = 379) CHLORIDE (BEAKER) 107 meq/L 98-107 (test code = 382) CO2 (BEAKER) (test 19 meq/L 22-29 L code = 355) BLOOD UREA 24 mg/dL 7-21 H NITROGEN (BEAKER) (test code = 354) CREATININE 1.01 mg/dL 0.57-1.25 (BEAKER) (test code = 358) GLUCOSE RANDOM 199 mg/dL 70-105 H (BEAKER) (test code = 652) CALCIUM (BEAKER) 8.3 mg/dL 8.4-10.2 L (test code = 697) AST (SGOT) 17 U/L 5-34 (BEAKER) (test code = 353) ALT (SGPT) 21 U/L 6-55 (BEAKER) (test code = 347) EGFR (BEAKER) 79 Interpretati on of eGFR (test code = 1092) mL/min/1.[address] age Description sq m Result G1 Caitie l or high >=90 G2 Mildly decreased 60-89 G3a Mildl y to moderately 45-5 9 G3b Moderately to s everely 30-44 G4 Severl y decreased 15-29 G5 Kidney failure <15Reported eGF R is based on the CKD-EPI 2020 equation that d oes not use a race coefficientEsti mated GFR is not as accur ate as Creatinine Rosalie pierson in predicting glom erular filtration rate . Estimated GFR is not appl icable for dialysis patien shashank Mechanical Specialist ID - [id number] (HEMOGRAM ONLY)2022-12-18 05:43:20 Test Item Value Reference Range Interpretation Comments WHITE BLOOD CELL COUNT (BEAKER) 8.9 K/ L 3.5-10.5 (test code = 775) RED BLOOD CELL COUNT (BEAKER) 4.24 M/ L 4.63-6.08 L (test code = 761) HEMOGLOBIN (BEAKER) (test code = 12.7 GM/DL 13.7-17.5 L 410) HEMATOCRIT (BEAKER) (test code = 37.6 % 40.1-51.0 L 411) MEAN CORPUSCULAR VOLUME (BEAKER) 89 fL 79-92 (test code = 753) MEAN CORPUSCULAR HEMOGLOBIN 30.0 pg 25.7-32.2 (BEAKER) (test code = 751) MEAN CORPUSCULAR HEMOGLOBIN CONC 33.8 GM/DL 32.3-36.5 (BEAKER) (test code = 752) RED CELL DISTRIBUTION WIDTH 13.0 % 11.6-14.4 (BEAKER) (test code = 412) PLATELET COUNT (BEAKER) (test 118 K/CU MM 150-450 L code = 756) MEAN PLATELET VOLUME (BEAKER) 11.3 fL 9.4-12.4 (test code = 754) NUCLEATED RED BLOOD CELLS 0 /100 WBC 0-0 (BEAKER) (test code = 413) POCT-GLUCOSE [id number] 21:15:51 Test Item Value Reference Range Interpretation Comments POC-GLUCOSE METER 211 mg/dL 70-110 H : TESTED A T [facility] 6720 (BEAKER) (test code = [facility] [email or web address] [facility], 1538) 80887: Mechanical Specialist/Techni jose l ID = [id number] for NIMA MELENDEZ POCT-GLUCOSE [id number] 18:23:07 Test Item Value Reference Range Interpretation Comments POC-GLUCOSE METER 209 mg/dL 70-110 H : TESTED A T [facility] 6720 (BEAKER) (test code = [facility], 1538) 97369: Mechanical Specialist/Techni jose l ID = [id number] for Al harini, Mili POCT-GLUCOSE [id number] 12:23:40 Test Item Value Reference Range Interpretation Comments POC-GLUCOSE METER 185 mg/dL 70-110 H : TESTED Jordy Chavez [facility] 6720 (BEAKER) (test code = [place], 1538) [address]: Mechanical Specialist/Techni jose l ID = [id number] for Al harini, Mili [place] FLUORO NON-SPECIFIC UP TO 1 [id number] 07:39:55 [facility] : 1950 Sex: MThisis a non- reportable study with no Radiologist dictation. Please refer to your PACS to review images,or Doc Flowsheets for documentation on studies without images. BASIC METABOLIC [id number] 06:34:31 Test Item Value Reference Range Interpretation Comments SODIUM (BEAKER) 137 meq/L 136-145 (test code = 381) POTASSIUM 4.4 meq/L 3.5-5.1 Specimen slight ly (BEAKER) (test hemolyzed code = 379) CHLORIDE (BEAKER) 108 meq/L 98-107 H (test code = 382) CO2 (BEAKER) 19 meq/L 22-29 L (test code = 355) BLOOD UREA 22 mg/dL 7-21 H NITROGEN (BEAKER) (test code = 354) CREATININE 1.49 mg/dL 0.57-1.25 H Specimen slight ly (BEAKER) (test hemolyzed code = 358) GLUCOSE RANDOM 221 mg/dL 70-105 H (BEAKER) (test code = 652) CALCIUM (BEAKER) 8.7 mg/dL 8.4-10.2 (test code = 697) EGFR (BEAKER) 50 Interpretatio n of eGFR (test code = mL/min/1.73 values Stage De scription 1092) sq m Result G1 Caitie l or high >=90 G2 Mildly decreased 60-89 G3a Mildl y to moderately 45-5 9 G3b Moderately to s everely 30-44 G4 Severl y decreased 15-29 G5 Kidney failure <15Reported eGF R is based on the CKD-EPI 2020 equation that d oes not use a race coefficientEsti mated GFR is not as accur ate as Creatinine Rosalie kenna in predicting glom erular filtration rate . Estimated GFR is not appl icable for dialysis patien ts Mechanical Specialist ID - [id number] 06:34:30 Test Item Value Reference Range Interpretation Comments MAGNESIUM (BEAKER) 1.4 mg/dL 1.6-2.6 L Specimen slightly (test code = 627) hemolyzed Mechanical Specialist ID - [id number] 06:34:30 Test Item Value Reference Range Interpretation Comments PHOSPHORUS (BEAKER) 2.7 mg/dL 2.3-4.7 Specimen slightly (test code = 604) hemolyzed Mechanical Specialist ID - MARCOPOCT-GLUCOSE [id number] 06:32:35 Test Item Value Reference Range Interpretation Comments POC-GLUCOSE METER 217 mg/dL 70-110 H : TESTED A T [facility] 6720 (BEAKER) (test code = DESIREEMILE Nelson [facility], 1538) 13710: Mechanical Specialist/Techni jose l ID = [id number] for GR AHAM, TUTU CBC W/PLT COUNT & AUTO [id number] 06:19:54 Test Item Value Reference Range Interpretation Comments WHITE BLOOD CELL COUNT (BEAKER) 12.1 K/ L 3.5-10.5 H (test code = 775) RED BLOOD CELL COUNT (BEAKER) 4.67 M/ L 4.63-6.08 (test code = 761) HEMOGLOBIN (BEAKER) (test code = 13.9 GM/DL 13.7-17.5 410) HEMATOCRIT (BEAKER) (test code = 43.1 % 40.1-51.0 411) MEAN CORPUSCULAR VOLUME (BEAKER) 92 fL 79-92 (test code = 753) MEAN CORPUSCULAR HEMOGLOBIN 29.8 pg 25.7-32.2 (BEAKER) (test code = 751) MEAN CORPUSCULAR HEMOGLOBIN CONC 32.3 GM/DL 32.3-36.5 (BEAKER) (test code = 752) RED CELL DISTRIBUTION WIDTH 13.0 % 11.6-14.4 (BEAKER) (test code = 412) PLATELET COUNT (BEAKER) (test 102 K/CU MM 150-450 L code = 756) MEAN PLATELET VOLUME (BEAKER) 11.1 fL 9.4-12.4 (test code = 754) NUCLEATED RED BLOOD CELLS 0 /100 WBC 0-0 (BEAKER) (test code = 413) NEUTROPHILS RELATIVE PERCENT 83 % (BEAKER) (test code = 429) LYMPHOCYTES RELATIVE PERCENT 8 % (BEAKER) (test code = 430) MONOCYTES RELATIVE PERCENT 9 % (BEAKER) (test code = 431) EOSINOPHILS RELATIVE PERCENT 0 % (BEAKER) (test code = 432) BASOPHILS RELATIVE PERCENT 0 % (BEAKER) (test code = 437) NEUTROPHILS ABSOLUTE COUNT 10.00 K/ L 1.78-5.38 H (BEAKER) (test code = 670) LYMPHOCYTES ABSOLUTE COUNT 0.99 K/ L 1.32-3.57 L (BEAKER) (test code = 414) MONOCYTES ABSOLUTE COUNT (BEAKER) 1.03 K/ L 0.30-0.82 H (test code = 415) EOSINOPHILS ABSOLUTE COUNT 0.00 K/ L 0.04-0.54 L (BEAKER) (test code = 416) BASOPHILS ABSOLUTE COUNT (BEAKER) 0.01 K/ L 0.01-0.08 (test code = 417) IMMATURE GRANULOCYTES-RELATIVE 0.40 % 0.00-1.00 PERCENT (BEAKER) (test code = 2801) Urinalysis w/Microscopic + Reflex to [id number] 04:36:17 Test Item Value Reference Range Interpretation Comments Color, UA (test code Yellow = 5778-6) Clarity, UA (test Hazy code = 5767-9) Specific Gillespie, UA 1.020 1.001-1.035 (test code = 5811-5) pH, UA (test code = 6.0 5.0-8.0 5803-2) Protein, UA (test 30 mg/dL Negative A code = 67653-9) Glucose, UA (test 1000 mg/dL Negative A code = 365) Ketones, UA (test Trace Negative A code = 2514-8) Bilirubin, UA (test Negative Negative code = 38329-9) Blood, UA (test code Large Negative A = 07963-4) Nitrite, UA (test Negative Negative code = 5802-4) Leukocytes, UA (test Moderate Negative A code = 5799-2) Urobilinogen, UA 0.2 0.2-1.0 (test code = 22841-7) RBC, UA (test code = 269 See_Comment [Autom ated 46605-5) message] The system which generated this result transmit neva reference range : /HPF. The reference range was not used to interpret this result as normal/abnormal . WBC, UA (test code = 29 See_Comment [Autom ated 5821-4) message] The system which generated this result transmit neva reference range : /HPF. The reference range was not used to interpret this result as normal/abnormal . Bacteria, UA (test Rare code = 93330-1) Mucus (test code = Rare 8247-9) Squam Epithel, UA 1 See_Comment [Automate d (test code = 61379-0) messag e] The system which generated this result transmit neva reference range : /HPF. The reference range was not used to interpret this result as normal/abnormal . Specimen Source (test code = 2795) BECCA (test code = BECCA) Mechanical Specialist ID - [auto]Mechanical Specialist ID - tech Lab Interpretation Abnormal (test code = 39613-9) [facility] [id number] 04:36:17 Test Item Value Reference Range Interpretation Comments COLOR (BEAKER) (test code = 470) Yellow CLARITY (BEAKER) (test code = 469) Hazy SPECIFIC GRAVITY UA (BEAKER) (test 1.020 1.001-1.035 code = 468) PH UA (BEAKER) (test code = 467) 6.0 5.0-8.0 PROTEIN UA (BEAKER) (test code = 30 mg/dL Negative A 464) GLUCOSE UA (BEAKER) (test code = 1000 mg/dL Negative A 365) KETONES UA (BEAKER) (test code = Trace Negative A 371) BILIRUBIN UA (BEAKER) (test code = Negative Negative 462) BLOOD UA (BEAKER) (test code = Large Negative A 461) NITRITE UA (BEAKER) (test code = Negative Negative 465) LEUKOCYTE ESTERASE UA (BEAKER) Moderate Negative A (test code = 466) UROBILINOGEN UA (BEAKER) (test 0.2 0.2-1.0 code = 463) RBC UA (BEAKER) (test code = 519) 269 /HPF WBC UA (BEAKER) (test code = 520) 29 /HPF BACTERIA (BEAKER) (test code = Rare 517) MUCUS (BEAKER) (test code = 1574) Rare SQUAMOUS EPITHELIAL (BEAKER) (test 1 /HPF code = 516) SOURCE(BEAKER) (test code = 2795) Mechanical Specialist ID - [auto]Mechanical Specialist ID - [email or web address] FLUORO NON-SPECIFIC UP TO 1 HOUR 2022-12-16 22:17:28 [facility] 1950 Sex: MThisis a non- reportable study with no Radiologist dictation. Please refer to your PACS to review images,or Doc Flowsheets for documentation on studies without images. POCT-GLUCOSE [id number] 22:01:23 Test Item Value Reference Range Interpretation Comments POC-GLUCOSE METER 203 mg/dL 70-110 H : TESTED A T [facility] 6720 (BEAKER) (test code = [place], 1538) [address]: Mechanical Specialist/Techni jose l ID = [id number] for SE BENSON (V)AUDI (CELLAVISION MANUAL DIFF)2022-12-16 20:33:44 Test Item Value Reference Range Interpretation Comments NEUTROPHILS - REL 79 % (CELLAVISION)(BEAKER) (test code = 2816) LYMPHOCYTES - REL 6 % (CELLAVISION)(BEAKER) (test code = 2817) MONOCYTES - REL 10 % (CELLAVISION)(BEAKER) (test code = 2818) BANDS - REL (CELLAVISION)(BEAKER) 5 % 0-10 (test code = 2826) NEUTROPHILS - ABS 9.72 K/ul 1.78-5.38 H (CELLAVISION)(BEAKER) (test code = 2830) LYMPHOCYTES - ABS 0.74 K/ul 1.32-3.57 L (CELLAVISION)(BEAKER) (test code = 2831) MONOCYTES - ABS 1.23 K/uL 0.30-0.82 H (CELLAVISION)(BEAKER) (test code = 2832) BANDS - ABS (CELLAVISION)(BEAKER) 0.62 K/uL 0.00-0.80 (test code = 2840) TOTAL COUNTED (BEAKER) (test code = 100 1351) WBC MORPHOLOGY (BEAKER) (test code Normal = 487) PLT MORPHOLOGY (BEAKER) (test code Normal = 486) POIKILOCYTES (BEAKER) (test code = 1+ few 966) DARCIE CELLS (BEAKER) (test code = 1+ few 474) ARTIFACT (CELLAVISION)(BEAKER) Present (test code = 3432) PLATELET CONCENTRATION Decreased (CELLAVISION)(BEAKER) (test code = 3438) Mechanical Specialist ID - [id number] ID - Mariaelena Murcia comments: Slide comments:CBC W/PLT COUNT & AUTO [id number] 20:06:24 Test Item Value Reference Range Interpretation Comments WHITE BLOOD CELL COUNT (BEAKER) 12.7 K/ L 3.5-10.5 H (test code = 775) RED BLOOD CELL COUNT (BEAKER) 4.70 M/ L 4.63-6.08 (test code = 761) HEMOGLOBIN (BEAKER) (test code = 13.8 GM/DL 13.7-17.5 410) HEMATOCRIT (BEAKER) (test code = 42.6 % 40.1-51.0 411) MEAN CORPUSCULAR VOLUME (BEAKER) 91 fL 79-92 (test code = 753) MEAN CORPUSCULAR HEMOGLOBIN 29.4 pg 25.7-32.2 (BEAKER) (test code = 751) MEAN CORPUSCULAR HEMOGLOBIN CONC 32.4 GM/DL 32.3-36.5 (BEAKER) (test code = 752) RED CELL DISTRIBUTION WIDTH 12.7 % 11.6-14.4 (BEAKER) (test code = 412) PLATELET COUNT (BEAKER) (test code 75 K/CU MM 150-450 L = 756) MEAN PLATELET VOLUME (BEAKER) 11.6 fL 9.4-12.4 (test code = 754) NUCLEATED RED BLOOD CELLS (BEAKER) 0 /100 WBC 0-0 (test code = 413) BASIC METABOLIC [id number] 19:42:35 Test Item Value Reference Range Interpretation Comments SODIUM (BEAKER) 133 meq/L 136-145 L (test code = 381) POTASSIUM 4.0 meq/L 3.5-5.1 Specimen slight ly (BEAKER) (test hemolyzed code = 379) CHLORIDE (BEAKER) 102 meq/L 98-107 (test code = 382) CO2 (BEAKER) 19 meq/L 22-29 L (test code = 355) BLOOD UREA 22 mg/dL 7-21 H NITROGEN (BEAKER) (test code = 354) CREATININE 1.83 mg/dL 0.57-1.25 H Specimen slight ly (BEAKER) (test hemolyzed code = 358) GLUCOSE RANDOM 185 mg/dL 70-105 H (BEAKER) (test code = 652) CALCIUM (BEAKER) 8.3 mg/dL 8.4-10.2 L (test code = 697) EGFR (BEAKER) 39 Interpretatio n of eGFR (test code = mL/min/1.73 values Stage De scription 1092) sq m Result G1 Caitie l or high >=90 G2 Mildly decreased 60-89 G3a Mildl y to moderately 45-5 9 G3b Moderately to s everely 30-44 G4 Severl y decreased 15-29 G5 Kidney failure <15Reported eGF R is based on the CKD-EPI 2020 equation that d oes not use a race coefficientEsti mated GFR is not as accur ate as Creatinine Rosalie kenna in predicting glom erular filtration rate . Estimated GFR is not appl icable for dialysis patien ts Mechanical Specialist ID - ADMIN Notes Date/Time Note Provider Source 2022-12-16 23:11:27-00:00 CHRISTIAN GARIBAY [facility] OPERATIVE/PROCEDURE REPORT ALEXI MEDINA FACILITY: [facility] Billing #: [id number] [facility] #: [id number] : 1950 DATE OF PROCEDURE: 12/16/2022 SURGEON: Christian Garibay MD PREOPERATIVE DIAGNOSIS: Left ureteral stone. POSTOPERATIVE DIAGNOSIS: Left ureteral stone. PROCEDURE PERFORMED: Cystoscopy, left retrograde pyelogram, left to right ureteral stent placement. CHRONIC CARE NURSE: Dr. Lesley Manning, urology resident. ANESTHESIA: General. INDICATIONS FOR PROCEDURE: This is a 72-year-old white male transferred from [facility]. The patient p resented to the ER with urosepsis, was found to have elevate d lactate and on CT scan, he had a 3-mm left proximal ureteral stone with left hydronephrosis. He was transferred to [facility] for emergent care. The patient wa s given broad-spectrum antibiotics and was posted and ta shreya stat to the emergency room after a discussion with the patie nt and family. He was counseled that the obstruction would requ sea relief with a left ureteral stent placement to help drain e infection. The risks and benefits of the procedure were exp lained at length to the patient and wished to proceed. PROCEDURE IN DETAIL: After informed detail of th e procedure, consent was obtained, the patient was taken to t he operating room where general anesthesia was induced withou t complications. The patient as stated did receive preoperative intravenous antibiotics. He was placed in the do rsal lithotomy position, prepped and draped in the standard sahil gical fashion. A 22-Jamaican cystoscope with 30-degree lens was p assed through the patient's urethra into the bladder. The serenity ent was noted to have moderate bilobar enlargement, elevated b ladder neck. Once the bladder was entered, the visual obturat or was exchanged for a bridge. The bladder was inspecte d in all quadrants. Both ureteral orifice was identified. There was no bladder masses noted. A Sensor wire and 5-Jamaican open-ended catheter was used with aid of C-arm fluoroscopy to cannulate the left ureteral orifice. The guidewire and 5-F rench open-ended catheter were then guided into the le ft renal pelvis. The wire was removed and a hydronephroti c drip was observed. A urine culture from the left renal pe lvis was obtained and sent for culture and sensitivity. T he wire was then replaced after we measured 26 cm to the pel vis and upper pole calyx. Therefore, a 6-Jamaican 26 cm stent wa s prepared. The wire was then passed through the 5-Jamaican op en-ended catheter and guided into the left renal pelvis. The 5-Jamaican open-ended catheter was then backed off the wire . A 6-Jamaican 26 cm stent was then passed over the wire and gu ided into the left renal collecting system with aid of a pushe r. The wire was then removed and a coil was observed in the left upper pole calyx. A Popper was then used to disengage the p usher from the stent. A final C-arm film showed excellent place ment of stent with a coil within the left upper pole calyx as well as a coil within the bladder. The scope was then removed f rom the patient's bladder and urethra. An 18-Jamaican coud e catheter was placed to gravity drainage. The balloon was infl ated with 10 mL of water and left to gravity drainage. The pa tient was then taken down out of dorsal lithotomy position, awo shreya, extubated, and transported to recovery room in stable condi tion. There were no complications. Estimated blood loss less than 5 mL. All equipment counts correct x2. CPS/MODL /[id number] Electronically signed by: CHRISTIAN GARIBAY at 2022-12-16 21:27:49.000
[2023-01-29] MEDS ORDERED: ACETAMINOPHEN 500 MG TAB ONE (08:45)
[2023-01-29] MEDS ORDERED: NA CHLORIDE 0.9% 500 ML ONE (09:09)
[2023-01-29] MEDS ORDERED: NA CHLORIDE 0.9% 3,000 ML ONE (09:09)
[2023-01-29] MEDS ORDERED: CEFEPIME 1 GM/VIAL ONE (09:09)
[2023-01-29] MEDS ORDERED: NA CHLORIDE 0.9% 100 ML ONE (09:09)
[2023-01-29 09:11] LABS: Absolute Lymphocytes (CBC) 0.5 K/uL (0.7-4.9); Hematocrit 41.2 % (39.6-49.0); Lymphocytes % 2.7 % (15.3-44.8); MCV 88.9 fL (80-100); MPV 8.3 fL (7.6-11.3); Platelets 135 thou/uL (152-406); RBC Red Blood Cell Count 4.63 M/uL (4.33-5.43)
[2023-01-29 09:12] LABS: Protime INR 2.63
[2023-01-29 09:24] LABS: Albumin 3.7 g/dL (3.4-5.0); Bilirubin Total 1.3 mg/dL (0.2-1.0); Potassium 3.7 mEq/L (3.5-5.1); Protein, Total 7.2 g/dL (6.4-8.2)
--- NOTE | 2023-01-29 09:30 | RAD REPORT ---
EXAM DESCRIPTION: CT - Stone Protocol - 01/29/2023 9:00 am CLINICAL HISTORY: hx of infected stone COMPARISON: Stone Protocol dated 07/07/2019; CT ABD PELVIS W CONTRAST dated 04/05/2012; CT ABD PELVIS W CONTRAST dated 07/24/2008; Chest Single View dated 12/16/2022 TECHNIQUE: Thin cut axial CT imaging of the abdomen and pelvis was performed without IV contrast. Mu ltiplanar reformats were generated and reviewed. All CT scans are performed using dose optimization technique as appropriate and may include automated exposure control or mA/KV adjustment according to patient size. FINDINGS: No suspicious findings in the lung bases. The liver, spleen, and pancreas show no suspicious findings. Gallbladder was surgically removed. No i ntra or extrahepatic biliary ductal dilation. Symmetric renal contour, without suspicious parenchymal findings within limits of noncontrast techniq ue. Stable 2 centimeter exophytic left lower pole hypoattenuating lesion, possibly a cyst. 2 millimet er right superior pole calculus. No hydroureteronephrosis. No dilated bowel loops or bowel wall thickening. Colonic diverticulosis. No free air, free fluid or i nflammatory stranding. No hernia, mass or bulky lymphadenopathy. The urinary bladder is suboptimally distended limiting evaluation. Prostatomegaly. No suspicious bony findings. IMPRESSION: Nonobstructing 2 millimeter right superior pole calculus. No hydroureteronephrosis. Incidental findings including colonic diverticulosis and prostatomegaly. Stable left lower renal pole probable cyst. Status post cholecystectomy.
--- NOTE | 2023-01-29 09:31 | RAD REPORT ---
EXAM DESCRIPTION: RADChest Single View01/29/2023 9:18 am CLINICAL HISTORY: FEVER COMPARISON: Chest Single View dated 12/16/2022; Chest Single View dated 07/06/2019; CHEST PA AND LAT 2 VIEW dated 07/21/2013; CHEST SINGLE VIEW dated 04/04/2012; Chest Abd Pelvis Wo Con dated 12/16/2022; Ston e Protocol dated 01/29/2023 TECHNIQUE: Portable AP view of the chest. FINDINGS: The lungs are clear.Bibasilar atelectatic changes, stable. No pneumothorax or effusion. Th e cardiomediastinal contours are unremarkable. IMPRESSION: No acute cardiopulmonary process.
[2023-01-29 10:02] LABS: SARS-CoV-2 Antigen Rapid Res Negative (Negative)
[2023-01-29 10:57] LABS: Renal Epithelial <5 /HPF (None Seen); Specific Gravity > 1.030 (1.005-1.030); Urine Bacteria <20 /HPF (<20); Urine Bilirubin NEGATIVE (Negative); Urine Blood 1+ (Negative); Urine Clarity Extremely Turbid (Clear); Urine Color Light-Orange (Yellow); Urine Glucose 1+ (Negative); Urine Mucus 4+ /HPF (None Seen); Urine Protein 1+ (Negative); Urine RBC 21-50 /HPF (None Seen); Urine Urobilinogen Normal (Normal); Urine WBC Clump Many /HPF (None Seen); Urine pH 5.5 (5.0-7.0)
--- NOTE | 2023-01-29 12:31 | ER ---
Nurse's Notes [facility] Name: Wesley Medina Age: 73 yrs Sex: Male : 1950 Arrival Date: 01/29/2023 Time: 08:18 Bed 15 Private MD: Diagnosis: Diabetes mellitus due to underlying condition with hyperglycemia;Severe sepsis with septic shock;Disorder of kidney and ureter, unspecified-recent surgical manipulation;UTI/ Urinary tract infection, site not specified Presentation: 01/29 08:28 Chief complaint: Pain with urination, urinary frequency, malaise, and SOB on exertion x hb 2 days, body aches and nausea today. Coronavirus screen: At this time, the client does not indicate any symptoms associated with coronavirus-19. Ebola Screen: No symptoms or risks identified at this time. Initial Sepsis Screen: Does the patient meet any 2 criteria? RR > 20 per min. Temp <36.0*C (96.8*F)) or > 38.3*C (100.9*F). HR > 90 bpm. No. Patient's initial sepsis screen is negative. Does the patient have a suspected source of infection? Yes: Dysuria/Frequency/Urgency/UTI. Risk Assessment: Do you want to hurt yourself or someone else? Patient reports no desire to harm self or others. Onset of symptoms was January 28, 2023. 08:28 Method Of Arrival: Ambulatory hb 08:28 Acuity: MILLA 2 hb Historical: - Allergies: 08:31 No Known Allergies; hb - PMHx: 08:31 Diabetes - NIDDM; Hyperlipidemia; Hypertension; hb - Immunization history:: Adult Immunizations up to date. - Social history:: Smoking status: Patient denies any tobacco usage or history of. Screenin:00 [facility] ED Fall Risk Assessment (Adult) History of falling in the last 3 months, kc6 including since admission No falls in past 3 months (0 pts) Confusion or Disorientation No (0 pts) Intoxicated or Sedated No (0 pts) Impaired Gait No (0 pts) Mobility Assist Device Used No (0 pt) Altered Elimination No (0 pt) Score/Fall Risk Level 0 - 2 = Low Risk. Abuse screen: Denies threats or abuse. Denies injuries from another. Nutritional screening: No deficits noted. Tuberculosis screening: No symptoms or risk factors identified. Assessment: 08:28 Reassessment: CODE SEPSIS CALLED. hb 08:45 General: Appears in no apparent distress. comfortable, Behavior is calm, cooperative, kc6 appropriate for age. Neuro: Level of Consciousness is awake, alert, obeys commands, Oriented to person, place, time, situation, Appropriate for age. Cardiovascular: Heart tones S1 S2 present Capillary refill < 3 seconds Rhythm is sinus tachycardia. Respiratory: Airway is patent Trachea midline Respiratory effort is even, unlabored, Respiratory pattern is regular, symmetrical. GI: No signs and/or symptoms were reported involving the gastrointestinal system. : Urine is blood tinged. EENT: No signs and/or symptoms were reported regarding the EENT system. Derm: No signs and/or symptoms reported regarding the dermatologic system. Skin is intact, is healthy with good turgor, Skin is pink, warm \T\ dry. Musculoskeletal: No signs and/or symptoms reported regarding the musculoskeletal system. Circulation, motion, and sensation intact. Capillary refill < 3 seconds, Range of motion: intact in all extremities. 09:45 Reassessment: Patient appears in no apparent distress at this time. No changes from kc6 previously documented assessment. Patient and/or family updated on plan of care and expected duration. Pain level reassessed. Patient is alert, oriented x 3, equal unlabored respirations, skin warm/dry/pink. 10:45 Reassessment: Patient appears in no apparent distress at this time. No changes from kc6 previously documented assessment. Patient and/or family updated on plan of care and expected duration. Pain level reassessed. Patient is alert, oriented x 3, equal unlabored respirations, skin warm/dry/pink. 11:50 Reassessment: Patient appears in no apparent distress at this time. No changes from kc6 previously documented assessment. Patient and/or family updated on plan of care and expected duration. Pain level reassessed. Patient is alert, oriented x 3, equal unlabored respirations, skin warm/dry/pink. 12:35 Reassessment: Patient appears in no apparent distress at this time. No changes from kc6 previously documented assessment. Patient and/or family updated on plan of care and expected duration. Pain level reassessed. Patient is alert, oriented x 3, equal unlabored respirations, skin warm/dry/pink. 13:35 Reassessment: Patient appears in no apparent distress at this time. No changes from kc6 previously documented assessment. Patient and/or family updated on plan of care and expected duration. Pain level reassessed. Patient is alert, oriented x 3, equal unlabored respirations, skin warm/dry/pink. 13:56 Reassessment: please see [facility] for further charting. kc6 15:10 Reassessment: attempted to call report to second floor. WILLIE Duncan unsure which nurse jose is getting the pt. stated she is going to contact household appliances salesperson and will call me back. 15:14 Reassessment: nurse to nurse report given to WILLIE Bobo. kc6 Vital Signs: 08:28 BP 135 / 70; Pulse 116; Resp 24; Temp 102.7(O); Pulse Ox 100% on R/A; Weight 113.4 kg; hb Height 5 ft. 1 in. ; Pain 4/10; 09:30 BP 114 / 56; Pulse 102; Resp 20 S; Pulse Ox 94% on R/A; kc6 10:00 BP 93 / 58; Pulse 103; Resp 19 S; Pulse Ox 95% on R/A; kc6 10:30 BP 99 / 54; Pulse 101; Resp 20 S; Temp 100.2(O); Pulse Ox 95% on R/A; kc6 10:57 BP 100 / 51; Pulse 98; Resp 17; Temp 99.1(O); Pulse Ox 94% on R/A; mm9 11:50 BP 91 / 55; Pulse 99; Resp 20 S; Pulse Ox 97% on R/A; kc6 12:36 BP 104 / 61; Pulse 94; Resp 20 S; Temp 98.9(O); Pulse Ox 98% on R/A; kc6 13:56 BP 104 / 83; Pulse 102; Resp 20 S; Pulse Ox 96% on R/A; kc6 08:28 Body Mass Index 47.24 (113.40 kg, 154.94 cm) hb 08:28 Pain Scale: Adult hb ED Course: 08:21 Patient arrived in ED. im 08:25 Deepika Brennan RN is Primary Nurse. kc6 08:28 [facility] snw 08:28 Dean Cisneros MD is Attending Physician. snw 08:30 Triage completed. hb 08:31 Arm band placed on. hb 09:02 CT Stone Protocol In Process Unspecified. EDMS 09:14 Inserted saline lock: 20 gauge in left wrist, using aseptic technique. Blood collected. kc6 09:20 Chest Single View XRAY In Process Unspecified. EDMS 10:00 Patient has correct armband on for positive identification. Bed in low position. Call kc6 light in reach. Side rails up X 1. Adult w/ patient. 10:48 initiated a transfer with Abhinav Dubose Rn from the [facility]. eb 12:[address] Stewart the urologist integration technician for [facility] with Lu Mujica for patient eb transfer consultation. 12:28 Herbert Toledo MD is Hospitalizing Provider. snw 15:14 No provider procedures requiring assistance completed. Patient admitted, IV remains in kc6 place. Administered Medications: 08:53 Drug: Acetaminophen PO 1000 mg Route: PO; kc6 10:44 Follow up: Response: No adverse reaction; Temperature is decreased kc6 09:22 Drug: NS 0.9% IV (30 ml/kg) 30 ml/kg Route: IV; Rate: bolus; Site: left wrist; kc6 12:42 Follow up: Response: No adverse reaction; IV Status: Completed infusion; IV Intake: kc6 3500ml 09:22 Drug: Cefepime IVPB 1 grams Route: IVPB; Rate: 200 ml/hr; Infused Over: 30 mins; Site: kc6 left wrist; 10:44 Follow up: Response: No adverse reaction; IV Status: Completed infusion; IV Intake: kc6 100ml Medication: 15:34 VIS not applicable for this client. kc6 Intake: 10:44 IV: 100ml; Total: 100ml. kc6 12:42 IV: 3500ml; Total: 3600ml. kc6 Outcome: 12:31 Decision to Hospitalize by Provider. snw 15:33 Admitted to Med/surg accompanied by tech, via wheelchair, room 208, with chart, Report kc6 called to WILLIE Bobo 15:33 Condition: stable 15:33 Instructed on the need for admit. 15:34 Patient left the ED. kc6 Signatures: Dispatcher [employer] Lu Jacques, ASSEMBLER METAL FURNITURE-C ASSEMBLER METAL FURNITURE-Csnw Rozina Diaz RN RN Charlee Garcia Kaitlyn, RN RN kc6 Monty, Giovanna mm9 Kathryn Santiago
--- NOTE | 2023-01-29 12:31 | EDPHYS ---
Physician Documentation [facility] Name: Wesley Medina Age: 73 yrs Sex: Male : 1950 Arrival Date: 01/29/2023 Time: 08:18 Bed 15 Private MD: ED Physician Dean Cisneros HPI: 01/29 08:55 This 73 yrs old Male presents to ER via Ambulatory with complaints of Fever, Hurts All snw Over, Dehydration. 08:55 The patient reports fever, that was measured at 102.7 degrees Fahrenheit. Onset: The snw symptoms/episode began/occurred suddenly, yesterday. Modifying factors: hx of infected stones. The patient has experienced similar episodes in the past, several times. It is unknown whether or not the patient has recently seen a physician, sees Dr. Collins. Historical: - Allergies: 08:31 No Known Allergies; hb - PMHx: 08:31 Diabetes - NIDDM; Hyperlipidemia; Hypertension; hb - Immunization history:: Adult Immunizations up to date. - Social history:: Smoking status: Patient denies any tobacco usage or history of. ROS: 08:41 Eyes: Negative for injury, pain, redness, and discharge, ENT: Negative for injury, snw pain, and discharge, Neck: Negative for injury, pain, and swelling, Cardiovascular: Negative for chest pain, palpitations, and edema, Respiratory: Negative for shortness of breath, cough, wheezing, and pleuritic chest pain, Abdomen/GI: Negative for abdominal pain, nausea, vomiting, diarrhea, and constipation, Back: Negative for injury and pain. 08:41 MS/Extremity: Negative for injury and deformity, Skin: Negative for injury, rash, and discoloration, Neuro: Negative for headache, weakness, numbness, tingling, and seizure, Psych: Negative for depression, anxiety, suicide ideation, homicidal ideation, and hallucinations. 08:41 Constitutional: Positive for body aches, fever, malaise. 08:41 : Positive for urinary symptoms. Exam: 08:54 Head/Face: Normocephalic, atraumatic. Eyes: Pupils equal round and reactive to light, snw extra-ocular motions intact. Lids and lashes normal. Conjunctiva and sclera are non-icteric and not injected. Cornea within normal limits. Periorbital areas with no swelling, redness, or edema. ENT: Nares patent. No nasal discharge, no septal abnormalities noted. Tympanic membranes are normal and external auditory canals are clear. Oropharynx with no redness, swelling, or masses, exudates, or evidence of obstruction, uvula midline. Mucous membranes moist. Neck: Trachea midline, no thyromegaly or masses palpated, and no cervical lymphadenopathy. Supple, full range of motion without nuchal rigidity, or vertebral point tenderness. No Meningismus. Chest/axilla: Normal chest wall appearance and motion. Nontender with no deformity. No lesions are appreciated. 08:54 Respiratory: Lungs have equal breath sounds bilaterally, clear to auscultation and percussion. No rales, rhonchi or wheezes noted. No increased work of breathing, no retractions or nasal flaring. Abdomen/GI: Soft, non-tender, with normal bowel sounds. No distension or tympany. No guarding or rebound. No evidence of tenderness throughout. Back: No spinal tenderness. No costovertebral tenderness. Full range of motion. 08:54 MS/ Extremity: Pulses equal, no cyanosis. Neurovascular intact. Full, normal range of motion. Neuro: Awake and alert, GCS 15, oriented to person, place, time, and situation. Cranial nerves II-XII grossly intact. Motor strength 5/5 in all extremities. Sensory grossly intact. Cerebellar exam normal. Normal gait. Psych: Awake, alert, with orientation to person, place and time. Behavior, mood, and affect are within normal limits. 08:54 Constitutional: The patient appears alert, awake, febrile. 08:54 Cardiovascular: Rate: tachycardic, Rhythm: regular, Heart sounds: normal. 08:54 Skin: Appearance: normal except for affected area, Temperature: hot. Vital Signs: 08:28 BP 135 / 70; Pulse 116; Resp 24; Temp 102.7(O); Pulse Ox 100% on R/A; Weight 113.4 kg; hb Height 5 ft. 1 in. ; Pain 4/10; 09:30 BP 114 / 56; Pulse 102; Resp 20 S; Pulse Ox 94% on R/A; kc6 10:00 BP 93 / 58; Pulse 103; Resp 19 S; Pulse Ox 95% on R/A; kc6 10:30 BP 99 / 54; Pulse 101; Resp 20 S; Temp 100.2(O); Pulse Ox 95% on R/A; kc6 10:57 BP 100 / 51; Pulse 98; Resp 17; Temp 99.1(O); Pulse Ox 94% on R/A; mm9 11:50 BP 91 / 55; Pulse 99; Resp 20 S; Pulse Ox 97% on R/A; kc6 12:36 BP 104 / 61; Pulse 94; Resp 20 S; Temp 98.9(O); Pulse Ox 98% on R/A; kc6 13:56 BP 104 / 83; Pulse 102; Resp 20 S; Pulse Ox 96% on R/A; kc6 08:28 Body Mass Index 47.24 (113.40 kg, 154.94 cm) hb 08:28 Pain Scale: Adult hb MDM: 08:28 Patient medically screened. snw 11:10 Differential diagnosis: bacterial infection, sepsis. Data reviewed: vital signs, nurses snw notes. I considered the following discharge prescriptions or medication management in the emergency department Medications were administered in the Emergency Department. See MAR. Post IV fluid administration reassessment for Sepsis: Sepsis focused reassessment complete. Focused Assessment performed: January 29, 2023 at 11:10 Heart: Regular rate/rhythm noted. Lungs: Noted to be clear bilaterally. Skin examination performed. Skin noted to have normal turgor. Skin noted to be pink. Neuro: Neurological examination improved from previous exam. Cardio: Cardiovascular examination improved from previous exam. Heart rate and blood pressure have improved. Counseling: I had a detailed discussion with the patient and/or guardian regarding the historical points, exam findings, and any diagnostic results supporting the discharge/admit diagnosis, lab results, radiology results, the need to transfer to another facility. Response to treatment: the patient's symptoms have mildly improved after treatment. ED course: Severe sepsis with shock + A. urine, B. temp 102.7, HR 116, wbc 16.5. INR 2.63, and Lactate 4.3. sepsis evaluation complete. 12:22 Management of patient was discussed with the following: Dr. Stewart, [facility] Urology. snw Refused consult/transfer as there is "no urologic emergency. Recommends IVF and Abx" [facility] 01/29 08:29 Order name: Blood Culture Adult (2) snw 01/29 08:29 Order name: CBC with Diff; Complete Time: 09:17 snw 01/29 08:29 Order name: CMP; Complete Time: 09:26 snw 01/29 08:29 Order name: Lactate w/ 2H reflex if indic.; Complete Time: 09:52 snw 01/29 08:29 Order name: Protime (+inr); Complete Time: 09:17 snw 01/29 08:29 Order name: Ptt, Activated; Complete Time: 09:17 snw 01/29 08:29 Order name: Urinalysis w/ reflexes; Complete Time: 11:33 snw 01/29 08:30 Order name: Flu; Complete Time: 10:11 snw 01/29 08:30 Order name: SARS RAPID; Complete Time: 10:11 snw 01/29 11:07 Order name: Urine Culture snw 01/29 13:35 Order name: Lactate w/ 2H reflex if indic.; Complete Time: 15:34 EDMS 01/29 13:35 Order name: Urinalysis w/ reflexes EDMS 01/29 13:35 Order name: CBC with Automated Diff EDMS 01/29 13:35 Order name: CBC with Automated Diff EDMS 01/29 13:35 Order name: Comprehensive Metabolic Panel EDMS 01/29 13:35 Order name: Comprehensive Metabolic Panel EDMS 01/29 13:36 Order name: Lactate Sepsis 2 HR Follow-up; Complete Time: 13:55 EDMS 01/29 08:29 Order name: Chest Single View XRAY; Complete Time: 09:38 snw 01/29 08:40 Order name: CT Stone Protocol; Complete Time: 09:38 snw 01/29 08:29 Order name: EKG; Complete Time: 08:41 snw 01/29 13:35 Order name: Heart Healthy EDMS 01/29 08:29 Order name: Accucheck; Complete Time: 08:53 snw 01/29 08:29 Order name: Cardiac monitoring; Complete Time: 08:53 snw 01/29 08:29 Order name: EKG - Nurse/Tech; Complete Time: 08:53 snw 01/29 08:29 Order name: IV Saline Lock - Large Bore; Complete Time: 09:14 snw 01/29 08:29 Order name: Labs collected and sent; Complete Time: 08:53 snw 08/19 08:29 Order name: O2 Per Protocol; Complete Time: 08:53 snw 01/29 08:29 Order name: O2 Sat Monitoring; Complete Time: : snw 01/29 08:29 Order name: Vital Signs; Complete Time: 08: snw 01/29 09:40 Order name: Recheck Vital Signs; Complete Time: 10:44 snw 01/29 10:55 Order name: Recheck Vital Signs: recheck vitals/ transfer consultation.; Complete Time: eb 10:58 EC:45 Rate is 112 beats/min. Rhythm is regular. QRS Norris is Normal. QRS interval is snw prolonged. QT interval is normal. Clinical impression: Sinus tachycardia and Bifascicular block. Administered Medications: :53 Drug: Acetaminophen PO 1000 mg Route: PO; kc6 10:44 Follow up: Response: No adverse reaction; Temperature is decreased kc 09:22 Drug: NS 0.9% IV (30 ml/kg) 30 ml/kg Route: IV; Rate: bolus; Site: left wrist; kc6 12:42 Follow up: Response: No adverse reaction; IV Status: Completed infusion; IV Intake: kc6 3500ml 09:22 Drug: Cefepime IVPB 1 grams Route: IVPB; Rate: 200 ml/hr; Infused Over: 30 mins; Site: kc6 left wrist; 10:44 Follow up: Response: No adverse reaction; IV Status: Completed infusion; IV Intake: kc6 100ml Disposition: 16:33 I reviewed the patient's care provided by the Advanced Practice Provider and agree with jrJessica the diagnosis and treatment plan. Disposition Summary: 01/29/23 12:31 Hospitalization Ordered Hospitalization Status: Inpatient Admission snw Provider: Herbert Toledo snw Condition: Fair snw Problem: new snw Symptoms: have improved snw Bed/Room Type: Standard snw Location: Telemetry/MedSurg (Inpatient)(01/29/23 14:56) eb Room Assignment: 208(01/29/23 14:56) eb Diagnosis - Diabetes mellitus due to underlying condition with hyperglycemia snw - Severe sepsis with septic shock snw - Disorder of kidney and ureter, unspecified - recent surgical manipulation snw - UTI/ Urinary tract infection, site not specified snw Forms: - Medication Reconciliation Form snw - SBAR form snw - Leadership Thank You Letter [facility] Signatures: Dispatcher [employer] Lu Jacques, CASEY-C TOP AND SEAT COVER FITTER-Csnw Rozina Diaz, RN RN Charlee Garcia Jose, MD MD [id number] Deepika Brennan RN RN [email or web address] Corrections: (The following items were deleted from the chart) 12:42 08:30 Dennis wilhelm. kc6 14:56 12:31 Intensive Care Unit [facility] eb 14:56 12:31 clint crane
[2023-01-29] MEDS ORDERED: ONDANSETRON 4 MG/2 ML VIAL IV PRN (13:20)
--- NOTE | 2023-01-29 13:45 | P.HP ---
Certification for Inpatient Patient admitted to: Inpatient With expected LOS: >2 Midnights Patient will require the following post-hospital care: None Practitioner: I am a practitioner with admitting privileges, knowledge of patient current condition, hospital course, and medical plan of care. Services: Services provided to patient in accordance with Admission requirements found in Title 42 Section 412.3 of the Code of Federal Regulations Patient History Date of Service: 01/29/23 Reason for admission: Urosepsis, kidney stone. History of Present Illness: 73 y o male pt with hx of DM 2, HTN, HLD, Kidney stones who presented with fever and chills and flank pain. He was diagnosed with urosepsis after he had elevated lactate and WBC. He was pancultured and started on IV antibiotics and given bolus NS for sepsis protocol. he was admitted for inpt care. He has had prior episodes of kidney stone related sepsis in the past. Allergies No Known Allergies Allergy (Unverified 04/04/12 22:24) Home Medications: Acetaminophen [Tylenol] 650 mg PO DAILY 07/07/19 Atorvastatin Calcium [Lipitor*] 10 mg PO BEDTIME 07/07/19 Bimatoprost [Lumigan] 1 drop EACH EYE BEDTIME 07/07/19 Cyanocobalamin (Vitamin B-12) [Vitamin B12] 2,500 mcg PO DAILY 07/07/19 Docosahexanoic AC/Epa [Fish Oil 1,000 MG*] 1,600 mg PO DAILY 07/07/19 Empagliflozin [Jardiance] 10 mg PO DAILY 07/07/19 Fluticasone [Flonase 50MCG Nasal [place]*] 1 spray IH DAILY 07/07/19 Liraglutide [Victoza 2-Jose] 1.8 mg SQ DAILY 07/07/19 Losartan Potassium [Cozaar] 100 mg PO DAILY 07/07/19 Metformin ER [Glucophage ER*] 1,000 mg PO BIDWM 07/07/19 Olopatadine HCl [Pazeo] 1 drop EACH EYE DAILYPRN PRN 07/07/19 Ubidecarenone [Co Q-10] 200 mg PO DAILY 07/07/19 Cefuroxime Axetil [Cefuroxime] 500 mg PO BID #14 tab 07/09/19 Tamsulosin [Flomax] 0.4 mg PO BEDTIME #30 cap 07/09/19 - Past Medical/Surgical History Diabetic: Yes -: NIDDM -: HTN -: Hyperlipidemia -: GERD -: sleep apnea -: tonsillectomy -: appendectomy -: shade -: R meniscus repair -: Lasik surgery bilateral eyes -: skin graft on side of head - Family History Father -: Cancer Notes: colon cancer, lung ca 59 yo Mother -: Lung disease, Cancer Notes: lung ca - Social History Alcohol use: No CD- Drugs: No Caffeine use: Yes Review of Systems General: Fever, Chills, Weakness, Malaise Eyes: Unremarkable ENT: Unremarkable Cardiovascular: Unremarkable Gastrointestinal: Nausea Genitourinary: Unremarkable Musculoskeletal: Unremarkable Integumentary: Unremarkable Neurological: Unremarkable Physical Examination - Physical Exam General: Alert, Oriented x3, Mild distress HEENT: Atraumatic, Normocephalic Neck: Supple Respiratory: Normal air movement Cardiovascular: Regular rate/rhythm, Normal S1 S2 Gastrointestinal: Soft and benign Musculoskeletal: No swelling Neurological: Normal speech, Normal strength at 5/5 x4 extr - Studies Laboratory Data (last 24 hrs) 01/29/23 01/29/23 01/29/23 08:54 08:54 08:54 WBC 16.50 H Hgb 14.1 Hct 41.2 Plt Count 135 L PT 28.9 H INR 2.63 APTT 40.2 H Sodium 134 L Potassium 3.7 BUN 20 H Creatinine 1.33 H Glucose 204 H Total Bilirubin 1.3 H AST 17 ALT 33 Alkaline Phosphatase 57 Microbiology Data (last 24 hrs): 01/29/23 08:54 Nasopharnyx Influenza Type A Antigen Screen - Final 01/29/23 08:54 Nasopharnyx Influenza Type B Antigen Screen - Final Assessment and Plan - Plan Sepsis: Present on admission. Lactate elevated at 5.5. we will follow trend. Cefepime started empirically. we will follow clinical course and review blood and urine cultures. we will continue IV NS infusion. Kidney stone: We will continue IV fluid and antibiotics. Urology to evaluate on outpt. DM 2: we will continue carb restricted diet and SSI for glucose control. Hypertension: We will continue antihypertensive medications. Prophylaxis: Lovenox or DVT. Code status: Full code. Disposition: we will treat his sepsis and discharge him once he is clinically stable. Discharge Plan: Home - Advance Directives Does patient have a Living Will: Yes Does patient have a Durable POA for Healthcare: No
[2023-01-29] MEDS: NA CHLORIDE 0.9% 1,000 ML IV SCH (14:00)
[2023-01-29] MEDS: ACETAMINOPHEN 325 MG TABLET PO PRN ×2 (14:25→18:31)
[2023-01-29 14:48] VITALS: BMI 46.8
[2023-01-29 15:59] VITALS: O2SAT 96
[2023-01-29] MEDS ORDERED: GLUCAGON 1 MG/VIAL IM PRN (16:55)
[2023-01-29] MEDS ORDERED: D50W 25 GM/50 ML SYRINGE IV PRN (16:55)
[2023-01-29] MEDS ORDERED: D10W 125 ML IV PRN (17:05)
--- NOTE | 2023-01-29 17:45 | P.PN ---
Subjective Date of Service: 01/30/23 Chief Complaint: Urosepsis, kidney stone. No acute events overnight. He reports that his symptoms have improved significantly. He has had chills and dysuria. He reports having a similar infection in December 2022, which required ureteral stent placement and removal. He denies any chest pain, palpitations, or shortness of breath. Review of Systems 10-point ROS is otherwise unremarkable General: Chills Genitourinary: Dysuria Physical Examination - Vital Signs Temperature: 98.9 F Blood Pressure: 104/83 Pulse: 102 Respirations: 20 - Physical Exam General: Alert, In no apparent distress, Oriented x3 HEENT: Atraumatic, Mucous membr. moist/pink, Sclerae nonicteric Neck: JVD not distended Respiratory: Clear to auscultation bilaterally, Normal air movement Cardiovascular: No edema, Regular rate/rhythm, Normal S1 S2, No gallops, No rubs, No murmurs Gastrointestinal: Normal bowel sounds, Soft and benign, Non-distended, No tenderness, No rebound, No guarding Musculoskeletal: No clubbing Integumentary: No rashes Neurological: Normal speech, Normal affect - Studies Laboratory Data (last 24 hrs) 01/29/23 01/29/23 01/29/23 08:54 08:54 08:54 WBC 16.50 H Hgb 14.1 Hct 41.2 Plt Count 135 L PT 28.9 H INR 2.63 APTT 40.2 H Sodium 134 L Potassium 3.7 BUN 20 H Creatinine 1.33 H Glucose 204 H Total Bilirubin 1.3 H AST 17 ALT 33 Alkaline Phosphatase 57 Microbiology Data (last 24 hrs): 01/29/23 08:54 Nasopharnyx Influenza Type A Antigen Screen - Final 01/29/23 08:54 Nasopharnyx Influenza Type B Antigen Screen - Final Assessment And Plan - Plan # Suspected Septic Shock secondary to Urinary Tract Infection with Gram-Negative Bacteremia - POA - improving He met sepsis criteria based on temperature > 100.9 F, HR > 90 bpm, RR > 20 breaths/min, and WBC > 12,000 and the suspected source is urinary. Severe sepsis is suspected due to coagulopathy (INR > 1.5), lactic acid > 2 mmol/L. Septic shock is suspected due to initial lactate > 4 mmol/L, SBP < 90 mmHg , MAP <65, decreased blood pressure by 40 mmHg after bolus. - Infectious Diseases consulted - recommendations appreciated - Sepsis order set was initiated - Lactate trend: 4.3 -> 5.2 -> 4.2 - Urinalysis: 1+ glucose, 2+ ketones, 1+ blood, 500 leukocyte esterase, 21-50 RBCs, >50 WBCs, 1+ protein - Chest x-ray = "no acute cardiopulmonary process." - CT abdomen = "nonobstructing 2 millimeter right superior pole calculus. No hydroureteronephrosis. Incidental findings including colonic diverticulosis and prostatomegaly. Stable left lower renal pole probable cyst. Status post cholecystectomy." - Blood cultures drawn before antibiotics were given - Broad spectrum antibiotics started: Cefepime - In regards to fluids: - 30 mL/kg of IV Normal Saline was given based on his actual body weight - Sepsis reassessment completed by Dallas Colmenares NP at 18:47 on 01/29/2023 # Hyperglycemia in Type II Diabetes Mellitus - Hgb A1c = 6.9 % - Correction scale insulin # Hypertension - Hold home anti-hypertensives given concern for septic shock # Hyperlipidemia - Continue home atorvastatin # Left Renal Lesion (2 cm) # Right Renal Calculus (2 mm) - Noted on CT scan - Outpatient follow-up Ole Long M.D.
--- NOTE | 2023-01-29 18:48 | P.PN ---
Date of Service: 01/29/23 Sepsis reassessment complete, BP soft but MAPs are >65. Trending lactate still.
[2023-01-29] MEDS ORDERED: RIVAROXABAN 15 MG TABLET PO SCH (19:00)
[2023-01-29] MEDS: INSULIN -REGULAR HUMAN 50 UNIT/0.5 ML ML SQ SCH (20:40)
[2023-01-30] MEDS: NA CHLORIDE 0.9% 1,000 ML IV SCH ×3 (00:25→21:05)
[2023-01-30 03:15] LABS: Absolute Lymphocytes (CBC) 0.3 K/uL (0.7-4.9); Hematocrit 34.7 % (39.6-49.0); Lymphocytes % 4.9 % (15.3-44.8); MPV 8.6 fL (7.6-11.3); Platelets 92 thou/uL (152-406)
[2023-01-30 03:39] LABS: Albumin 2.7 g/dL (3.4-5.0); Bilirubin Total 0.7 mg/dL (0.2-1.0); Potassium 3.6 mEq/L (3.5-5.1); Protein, Total 5.6 g/dL (6.4-8.2)
[2023-01-30 05:03] LABS: Blood Morphology Comment NOT SEEN (NOT SEEN); Platelet Estimate DECR
[2023-01-30] MEDS ORDERED: METOPROLOL TAR 25 MG TAB PO SCH (06:00)
[2023-01-30] MEDS: INSULIN -REGULAR HUMAN 50 UNIT/0.5 ML ML SQ SCH ×4 (07:30→21:05)
[2023-01-30] MEDS ORDERED: POTASSIUM CL SA 10 MEQ TAB PO ONE (09:00)
[2023-01-30] MEDS ORDERED: ENOXAPARIN 40 MG/0.4 ML SQ SCH (09:00)
[2023-01-30] MEDS ORDERED: CEFEPIME 1 GM in NA CHLORIDE 0.9% 100 ML IV SCH (09:00)
[2023-01-30] MEDS: CEFEPIME 2 GM in NA CHLORIDE 0.9% 100 ML IV SCH ×2 (09:22→17:14)
[2023-01-30] MEDS ORDERED: Magnesium Sulfate 2gm IVPB 2 G/50 ML BAG IV ONE (10:30)
[2023-01-30] MEDS: POTASS/SODIUM PHOSPHATE 1 PKT POWD.PACK PO SCH ×3 (10:31→12:35)
[2023-01-30] MEDS ORDERED: OLOPATADINE HCL OPTH PRN (15:38)
--- NOTE | 2023-01-30 19:00 | P.PN ---
Date of Service: 01/31/23 Subjective: ROS: 10 point ROS as noted above, otherwise negative Physical Exam: Gen: Alert, Oriented, NAD HEENT: normal conjunctiva, sclera anicteric CV: regular rate & rhythm, no edema Pulm: non-labored respirations on room air Abd: soft, nontender, nondistended MSK: no joint tenderness Integumentary: No rashes Neuro: normal speech, normal affect Problem List: 1. Septic Shock secondary to UTI with Gram-Negative Bacteremia 2. DM2 with hypergylcemia 3. Hypertension 4. Hyperlipidemia 5. Left Renal Lesion (2cm) 6. Right renal calculus (2mm) 7. Chronic Atrial Fibrillation PLAN ID consulted Blood cx: +GNR Continue empiric Cefepime Continue IV fluids Sliding scale insulin Continue home atorvastatin Hold home antihypertensives, restart as appropriate Hold home metoprolol due to septic shock Left Renal Lesion (2 cm) and Right Renal Calculus (2 mm) Noted on CT scan Recommend outpatient f/u VTE: Switched home Xarelto to Lovenox in case urologic intervention is required Code: Full Dispo: Home
[2023-01-30] MEDS ORDERED: MAGNESIUM SULFATE 1 gm IVPB 1 GM/100 ML BAG IV ONE (21:00)
[2023-01-30] MEDS ORDERED: ATORVASTATIN 10 MG TAB PO SCH (21:00)
[2023-01-30] MEDS: Enoxaparin 120 MG/0.8 ML SYR SQ SCH (21:05)
[2023-01-30] MEDS: TAMSULOSIN 0.4 MG SR CAP PO SCH (21:06)
[2023-01-31] MEDS: CEFEPIME 2 GM in NA CHLORIDE 0.9% 100 ML IV SCH ×2 (00:25→10:09)
[2023-01-31 04:25] LABS: Magnesium 1.9 mg/dL (1.6-2.4); Phosphorus 1.7 mg/dL (2.5-4.9)
[2023-01-31 04:26] LABS: Potassium 3.9 mEq/L (3.5-5.1)
[2023-01-31 04:28] LABS: Absolute Lymphocytes (CBC) 1.3 K/uL (0.7-4.9); Hematocrit 34.7 % (39.6-49.0); Lymphocytes % 19.8 % (15.3-44.8); MCV 88.6 fL (80-100); Platelets 85 thou/uL (152-406); RBC Red Blood Cell Count 3.92 M/uL (4.33-5.43)
[2023-01-31] MEDS: NA CHLORIDE 0.9% 1,000 ML IV SCH ×2 (06:28→17:19)
[2023-01-31] MEDS ORDERED: POTASS/SODIUM PHOSPHATE 1 PKT POWD.PACK PO ONE (07:00)
[2023-01-31] MEDS: INSULIN -REGULAR HUMAN 50 UNIT/0.5 ML ML SQ SCH ×3 (07:30→17:20)
[2023-01-31] MEDS ORDERED: BIMATOPROST OPHTH DROPS/2.5 ML BTL OPTH SCH (09:00)
--- NOTE | 2023-01-31 09:08 | P.CNS ---
Date of Consult: 01/31/23 Reason for Consult: Bacteremia Chief Complaint: Urosepsis, kidney stone. History of Present Illness: Patient is a 73 yo male with a past medical history of diabetes type II, hypertension, hyperlipidemia and GERD who presented to the ED with complaints of flank pain, fever and chills. CT abdomen revealing nonobstructing 2 mm right superior pole calculus. Blood and urine cultures obtained. Blood cultures resulting with gram negative rods, ID was consulted. Allergies No Known Allergies Allergy (Unverified 04/04/12 22:24) Home medications list reviewed: Yes Home Medications: Acetaminophen [Tylenol] 650 mg PO DAILY 07/07/19 Atorvastatin Calcium [Lipitor*] 10 mg PO BEDTIME 07/07/19 Bimatoprost [Lumigan] 1 drop EACH EYE BEDTIME 07/07/19 Docosahexanoic AC/Epa [Fish Oil 1,000 MG*] 1,600 mg PO DAILY 07/07/19 Fluticasone [Flonase 50MCG Nasal [place]*] 1 spray IH DAILY 07/07/19 Liraglutide [Victoza 2-Jose] 1.8 mg SQ DAILY 07/07/19 Metformin ER [Glucophage ER*] 1,000 mg PO BIDWM 07/07/19 Olopatadine HCl [Pazeo] 1 drop EACH EYE DAILYPRN PRN 07/07/19 Ubidecarenone [Co Q-10] 200 mg PO DAILY 07/07/19 Aspirin [Aspirin EC 81 MG] 81 mg PO DAILY 01/29/23 Glucosamine/Chondroiti/[id number] [Cosamin Asu Capsule] 1 tab PO DAILY 01/29/23 Metoprolol Tartrate 25 mg PO BID 01/29/23 Rivaroxaban [Xarelto*] 15 mg PO BEDTIME 01/29/23 Tamsulosin [Flomax] 0.4 mg PO BID 01/29/23 Ascorbic Acid/Ascorbate Sodium [Vitamin C 500 mg Tablet Chew] 500 mg PO DAILY 01/30/23 Bimatoprost [Lumigan] 2.5 ml OP DAILY 01/30/23 Cholecalciferol (Vitamin D3) [Vitamin D3] 25 mcg PO DAILY 01/30/23 L.acidoph,Paracasei, B.lactis [Probiotic] 1 each PO DAILY 01/30/23 Turmeric/Turmeric Root Extract [Turmeric 500 mg Capsule] 1 each PO DAILY 01/30/23 Vitamin A 450 mcg PO DAILY 01/30/23 Zinc Citrate [Zinc] 11 mg PO DAILY 01/30/23 - Past Medical/Surgical History Diabetic: Yes -: NIDDM -: HTN -: Hyperlipidemia -: GERD -: sleep apnea -: tonsillectomy -: appendectomy -: shade -: R meniscus repair -: Lasik surgery bilateral eyes -: skin graft on side of head - Family History Father Medical History: Cancer Notes: colon cancer, lung ca 59 yo Mother Medical History: Lung disease, Cancer Notes: lung ca - Social History Smoking Status: Unknown if ever smoked Alcohol use: No CD- Drugs: No Caffeine use: Yes Place of Residence: Home Review of Systems 10-point ROS is otherwise unremarkable General: Fever Genitourinary: Dysuria (mild) Physical Examination Temp Pulse Resp BP Pulse Ox 97.8 F 75 16 112/65 96 01/31/23 04:00 01/31/23 04:00 01/31/23 04:00 01/31/23 04:00 01/31/23 04:00 General: Alert, In no apparent distress, Oriented x3 HEENT: Atraumatic, Normocephalic Neck: Supple, JVD not distended Respiratory: Clear to auscultation bilaterally, Normal air movement (on room air) Cardiovascular: Normal pulses, Regular rate/rhythm Gastrointestinal: Normal bowel sounds, No ascites, No tenderness Musculoskeletal: No clubbing, No swelling Integumentary: No rashes, No breakdown Neurological: Normal speech, Normal tone, Normal affect Laboratory Data - Reviewed Microbiology Data - Reviewed Imagings Data: - Reviewed Conclusions/Impression: Problem List Septic shock Gram negative Bacteremia Urinary Tract Infection Diabetes Mellitus type II Atrial Fibrillation Hypertension Hyperlipidemia Septic Shock secondary to Complicated UTI and Klebsiella Bacteremia - Blood cultures 01/29: Klebsiella pneumoniae - Urine culture 01/29: No growth to date - Leukocytosis resolved. 24 hour Tmax 100 F - CT abdomen 01/29: " Nonobstructing 2 millimeter right superior pole calculus. No hydroureteronephrosis. Incidental findings including colonic diverticulosis and prostatomegaly. Stable left lower renal pole probable cyst. Status post cholecystectomy." - On Cefepime (01/30-) Recommendations Clinically, patient is doing well. Reports mild dysuria. Denies any nausea, vomiting or diarrhea. No flank pain, back pain or chest pain. - Currently on Cefepime (01/30). Consider switch to Ciprofloxacin PO to complete 14 days of antibiotic therapy (01/30-02/13) EKG on 12/16 with QTc of 446. - Follow up with urology and PCP as outpatient Case discussed with Mervin Saab
[2023-01-31] MEDS: TAMSULOSIN 0.4 MG SR CAP PO SCH (10:09)
[2023-01-31] MEDS: POTASS/SODIUM PHOSPHATE 1 PKT POWD.PACK PO SCH (10:10)
[2023-01-31] MEDS: Enoxaparin 120 MG/0.8 ML SYR SQ SCH (10:11)
[2023-01-31] MEDS ORDERED: levoFLOXacin 750 MG TAB PO SCH (12:00)
[2023-01-31 16:54] VITALS: BP 138/68; TEMP 100.5
--- NOTE | 2023-01-31 18:04 | EKG ---
Test Date: 2023-01-29 Test Time: 08:42:00 Taximeter Repairer: NISREEN MEASUREMENT RESULTS: Intervals: Rate: 112 WI: 168 QRSD: 120 QT: 344 QTc: 469 [place]: P: 40 WI: 168 QRS: -46 T: 43 INTERPRETIVE STATEMENTS: Sinus tachycardia Right bundle branch block Left anterior fascicular block Bifascicular block Abnormal ECG Compared to ECG 12/16/2022 11:00:56 No significant changes Electronically Signed On 01-31-23 17:58:32 CDT by Raulito [place]
== END 2023-01-31 19:00 | disposition home or self-care (01) | DRG 871 ==
LOC: ER 08:18 → ERHOLD 13:20 → 2ND 15:21
PROVIDERS: ADMIT Internal Medicine Nephrology; ATTEND Hospitalist
DX: A41.50 Gram-negative sepsis, unspecified (principal); R65.21 Severe sepsis with septic shock; N39.0 Urinary tract infection, site not specified; I48.20 Chronic atrial fibrillation, unspecified; I10 Essential (primary) hypertension; N28.9 Disorder of kidney and ureter, unspecified; N20.0 Calculus of kidney; E78.5 Hyperlipidemia, unspecified; E11.65 Type 2 diabetes mellitus with hyperglycemia; K21.9 Gastro-esophageal reflux disease without esophagitis; B96.1 Klebsiella pneumoniae [K. pneumoniae] as the cause of diseases classified elsewhere; Z79.84 Long term (current) use of oral hypoglycemic drugs; Z90.49 Acquired absence of other specified parts of digestive tract; Z79.899 Other long term (current) drug therapy; Z20.822 Contact with and (suspected) exposure to COVID-19
CPT/HCPCS: 36415; 71045; 74176; 76377; 80048; 80053; 81001; 82947; 83036; 83605; 83735; 84100; 85025; 85610; 85730; 87040; 87077; 87086; 87088; 87186; 87205; 87804; 87811; 93005; 96365; 96366; 96368; 99285; J0692; J1650; J1815; J3475; J7030; J7040